=== PATIENT | male | born 1950 | race Caucasian/White ===

== ENCOUNTER 2018-05-29 19:22 | Emergency (ER) | payer MEDICARE ==
--- OUTSIDE RECORDS SUMMARY | 2018-05-29 19:24 | XMS REPORT | Clinical Summary ---
:1950 Author Organization [facility] Address [address] [place] [address] Phone Care Team Providers Name Role Phone Unavailable Primary Care Provider Unavailable Allergies Active Allergy Reactions Severity Noted Date Comments Atorvastatin Other (See Comments) High 03/31/2017 Elevated LFTs Current Medications Prescription Sig. Disp. Refills Start Date End Date Status aspirin 81 MG EC Take 81 mg by Active tablet mouth daily. METOPROLOL Take by mouth. Active SUCCINATE ORAL atorvastatin Take by mouth. Active calcium (ATORVASTATIN ORAL) amlodipine Take by mouth. Active besylate (AMLODIPINE ORAL) multivitamin per Take 1 tablet by Active tablet mouth daily. docusate sodium Take 1 capsule 10 capsule 0 05/20/2018 Active (COLACE) 100 MG (100 mg total) 8 capsule by mouth 2 (two) times daily for 10 days. traMADol (ULTRAM) Take 1 tablet 30 tablet 0 05/20/2018 Active 50 mg tablet (50 mg total) by 8 mouth every 6 (six) hours as needed for Pain for up to 10 days. Max Daily Amount: 200 mg oxybutynin Take 1 tablet (5 21 tablet 0 05/20/2018 Active (DITROPAN) 5 MG mg total) by 9 tablet mouth 3 (three) times daily as needed. ciprofloxacin HCl Start taking day 8 tablet 0 05/20/2018 Active (CIPRO) 500 MG before your tablet follow up appointment and continue after until complete. Take one tablet every 12 hours.. furosemide (LASIX) Take 1 tablet 20 tablet 0 04/01/2017 20 MG tablet (20 mg total) by 8 mouth daily. acetaminophen-code Take 1 tablet by Discontinued ine (TYLENOL #3) mouth every 4 8 300-30 mg per (four) hours as tablet needed for Pain. ciprofloxacin HCl Take 1 tablet 8 tablet 0 05/20/2018 Discontinued (CIPRO) 500 MG (500 mg total) 8 tablet by mouth 2 (two) times daily for 4 days. 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 ([facility]) NSTEMI (non-ST elevated myocardial infarction) ([facility]) 03/21/2017 Encounters Date Type Specialty Care Team Description 05/18/2018 - Hospital Encounter General Internal Dylan Stubbs MD 05/20/2018 Medicine 05/18/2018 Procedure Pass 05/18/2018 Surgery Dylan Stubbs MD ROBOTIC LAPAROSCOPY,PROSTATE CTOMY W/ PELVIC LYMPH NODE DISSECTION 05/17/2018 Anesthesia Event Kristel William MD 04/12/2018 Hospital Encounter Pre-Admission Dylan Stubbs MD Coronary artery Testing disease involving [place] coronary artery of [place] heart with unstable angina pectoris (HCC) 04/12/2018 Orders Only General Internal Medicine 04/07/2018 Orders Only Urology Dylan Stubbs MD 03/31/2018 Orders Only Urology Dylan Stubbs MD after 05/28/2017 Social History Tobacco Use Types Packs/Day Years Used Date Never Smoker Smokeless Tobacco: Never Used Alcohol Use Drinks/Week oz/Week Comments No Sex Assigned at Date Recorded Not on file Last Filed Vital Signs Vital Sign Reading Time Taken Blood Pressure 168/82 05/20/2018 7:18 AM CDT Pulse 68 05/20/2018 7:18 AM CDT Temperature 35.8 C (96.5 F) 05/20/2018 7:18 AM CDT Respiratory Rate 17 05/20/2018 7:18 AM CDT Oxygen Saturation 92% 05/20/2018 7:18 AM CDT Inhaled Oxygen Concentration - - Weight 83.4 kg (183 lb 12.8 oz) 05/18/2018 6:48 AM CDT Height 172.7 cm (5' 8") 05/18/2018 6:48 AM CDT Body Mass Index 27.95 05/18/2018 6:48 AM CDT Plan of Treatment Health Maintenance Due Date Last Done Comments INFLUENZA VACCINE 05/08/2018 Implants Implanted Type Area Control Systems Engineer Device Expiration Model / Identifier Date Serial / Lot Ivon Hemshld Dbl Alessandro 0.3x3.0in [id number] - [id number] Graft/P Right: GETINGE 12/05/2020 [id number] / Implanted: Qty: 1 on 03/28/2017 by Balwinder Amanda MD [facility] Arterial IND: MAQUET:CV [id number] / [id number] Procedures Procedure Name Priority Date/Time Associated Diagnosis Comments PROCEDURE W/ DAVINCI 05/18/2018 8:00 AM CDT Prostate cancer (HCC) Case Notes 4 HRS PER LIAN Special Needs (DAVINCI - XI NOT REQUESTED) ROBOTIC LAPAROSCOPY,PROSTATECTOMY W/ 05/18/2018 8:00 AM CDT Prostate cancer PELVIC LYMPH NODE DISSECTION (HCC) Case Notes 4 HRS PER LIAN Special Needs (DAVINCI - XI NOT REQUESTED) after 05/28/2017 Results RHYTHM STRIP - SCAN (05/23/2018 10:40 AM)Creatinine, body fluid (05/20/2018 8: 11 AM) Component Value Ref Range Creat, Fluid 0.91 mg/dL Specimen Performing Laboratory Body Fluid - MAK Drain [address] [address] Narrative Reference Range:No Normals Assay performance has not been validated for this type of specimen. Hemoglobin and hematocrit - in AM (05/20/2018 5:52 AM)Only the most recent of3 resultswithin the time period is included. Component Value Ref Range Hemoglobin 14.4 13.7 - 17.5 GM/DL Hematocrit 44.1 40.1 - 51.0 % Specimen Performing Laboratory Blood [address] [address] Basic Metabolic Panel - In AM (05/20/2018 5:52 AM)Only the most recent of3 resultswithin the time period is included. Component Value Ref Range Sodium 131 (L) 136 - 145 meq/L Potassium 3.9 3.5 - 5.1 meq/L Chloride 103 98 - 107 meq/L CO2 22 22 - 29 meq/L BUN 20 7 - 21 mg/dL Creatinine 1.06 0.57 - 1.25 mg/dL Glucose 95 70 - 105 mg/dL Calcium 8.3 (L) 8.4 - 10.2 mg/dL EGFR 70Comment: ESTIMATED GFR IS NOT ACCURATE mL/min/1.73 sq m CREATININE CLEARANCE IN PREDICTING GLOMERULAR FILTRATION RATE. ESTIMATED GFR IS NOT APPLICABLE FOR DIALYSIS PATIENTS. Specimen Performing Laboratory Blood [facility] [address] [address] TRANSFUSION SERVICE REPORT - SCAN (05/19/2018 5:41 PM)Only the most recent of2 resultswithin the time period is included.Tissue Exam (05/18/2018 9:51 AM) Component Value Ref Range Case Report Surgical Pathology Report Case: [id number] Authorizing Provider:Dylan Stubbs MDCollected: 05/18/2018 0951 Ordering Location: [facility] Received: 05/18/2018 1002 SERVICES Pathologist: Osvaldo Montelongo MD Specimens: A) - Lymph Node, Right External Iliac Lymph Node - Gross Exam , Frozen If Indicated B) - Lymph Node, Right Obturator Lymph Node - Gross Exam, Frozen If Indicated C) - Soft Tissue, Other, right hypogastric lymph node- gross exam and frozen if indicated D) - Vas Deferens, Left E) - Soft Tissue, Other, left external iliac lymph node for gross exam, frozen if indicated F) - Soft Tissue, Other, left obturator for gross exam, frozen if indicated G) - Lymph Node, right obturator lymph node H) - Lymph Node, Carmen-Prostatic Lymph Node I) - Prostate, Prostate and seminal vesicles DIAGNOSIS A. LYMPH NODES, RIGHT EXTERNAL ILIAC, DISSECTION: - FOUR BENIGN LYMPH NODES (0/4) B. LYMPH NODES, RIGHT OBTURATOR, DISSECTION: - TWO BENIGN LYMPH NODES (0/2) C. LYMPH NODES, RIGHT HYPOGASTRIC, DISSECTION: - SIX BENIGN LYMPH NODES (0/6) D. VAS DEFERENS, LEFT, RESECTION: - NO PATHOLOGIC DIAGNOSIS E. LYMPH NODE, LEFT EXTERNAL ILIAC, EXCISION: - ONE BENIGN LYMPH NODE (0/1) F. LYMPH NODES, LEFT OBTURATOR, DISSECTION: - TWO BENIGN LYMPH NODES (0/2) G. SOFT TISSUE, "RIGHT OBTURATOR LYMPH NODE", EXCISION: - BENIGN FIBROADIPOSE TISSUE, NO LYMPH NODES PRESENT H. SOFT TISSUE, "CARMEN-PROSTATIC LYMPH NODE", EXCISION: - BENIGN FIBROADIPOSE TISSUE, NO LYMPH NODES PRESENT I. PROSTATE, ROBOTIC-ASSISTED LAPAROSCOPIC RADICAL PROSTATECTOMY: - ADENOCARCINOMA, BENJAMIN 3+4=7, CONFINED TO THE PROSTATE, SURGICAL MARGINS NEGATIVE SEMINAL VESICLES, ROBOTIC-ASSISTED LAPAROSCOPIC RADICAL PROSTATECTOMY: - NO PATHOLOGIC DIAGNOSIS Signing Pathologist Direct Phone Line: [phone] COMMENT Sections show tumor in both peripheral zones and both transition zones. All tumors are confined to the prostate but the tumor in the leftt peripheral shows invasion into but not the capsule. SYNOPTIC REPORT PROSTATE GLAND: Radical Prostatectomy(Prostate Res - All Specimens) SPECIMEN Procedure:Radical prostatectomy Prostate Size: Prostate Weight (g):34.2 g Prostate Greatest Dimension in Centimeters (cm):3.6 Centimeters (cm) Additional Dimension in Centimeters (cm):3.5 Centimeters (cm ) Additional Dimension in Centimeters (cm):2.6 Centimeters (cm ) TUMOR Histologic Type:Acinar adenocarcinoma Histologic Grade: [place] Pattern: Primary Benjamin Pattern:Pattern 3 Secondary [place] Pattern:Pattern 4 Tertiary Benjamin Pattern:Not applicable Total [place] Score:7 Grade Group:2 Intraductal Carcinoma (IDC):Not identified Tumor Extent: Tumor Quantitation:Estimated percentage of prostate involved by tumor: 20 % Extraprostatic Extension (EPE):Not identified Urinary Bladder Neck Invasion:Not identified Seminal Vesicle Invasion:Not identified Accessory Findings: Treatment Effect:No known presurgical therapy Lymphovascular Invasion:Not Identified Perineural Invasion:Present MARGINS Margins:Uninvolved by invasive carcinoma :Benign prostate glands present at surgical margin LYMPH NODES Number of Lymph Nodes Involved:0 Number of Lymph Nodes Examined:15 PATHOLOGIC STAGE CLASSIFICATION (pTNM, AJCC 8th Edition) TNM Descriptors:Not applicable Primary Tumor (pT):pT2 Regional Lymph Nodes (pN):pN0 Distant Metastasis (pM):Not applicable - pM cannot be determined from the submitted specimen(s) ADDITIONAL FINDINGS Additional Pathologic Findings:Nodular prostatic hyperplasia CPT Code(s) A. 54563, 04823 B. 74045, 56606 C. 37321, 11055 D. 35458 E. 22512, 84736 F. 35198, 00794 G. 59069 H. 18341 I. 27818 CLINICAL HISTORY Procedure cancer SPECIMEN SOURCE A. Right external iliac lymph node. B. Right obturator lymph node. C. Right hypogastric lymphnode. D. Left vas deferens. E. Left external iliac lymph node. F. Left obturator. G. Right obturator lymph node. H. Periprostatic lymph node. I. Prostate and seminal vesicle. GROSS DESCRIPTION A. The specimen is received fresh labeled "lymph node" is a 5 x 2.5 x 0.5 cm desouza-pink soft tissue. The specimen consists with four lymph nodes measuring 1 x 1 x 0.5 cm each. The specimen is submitted in cassettes as follows: A1: Lymph node, bisected, submitted for frozen and touch prep. A2: Two lymph nodes, one green and one red, bisected. A3: Lymph node, bisected. A4: Remainder of the specimen. B. The specimen is received fresh labeled "lymph node" is a 7 x 1 x 0.5 cm desouza-pink soft tissue consists with two lymph nodes measuring 1.5 cm and 0.5 cm. The specimen is submitted as follows: B1: 1.5 cm lymph node, bisected and submitted entirely for frozen and touch prep. B2: 0.3 cm lymph node, bisected and submitted entirely. C. The specimen is received fresh labeled "soft tissue" is a 6 x 2 x 0.5 cm desouza-pink soft tissue consistent with four lymph nodes measuring from 1.5 cm in greatest dimension to 0.8 cm. The specimen is submitted as follows: C1FS and C3: Two bisected lymph nodes (one half of each lymph node frozen in C1FS) C2FS and C4: Two bisected lymph nodes (one half of each lymph node frozen in C2FS) C5: Remainder of the specimen. WM/ew D: Labeled "left vas deferens" consists of a segment of off-white tubular shaped soft tissue measuring 1.7 cm in length x 0.3 cm in diameter. No suspicious areas are seen grossly. The specimen is sectioned and submitted entirely in D1. CG/ew E. The specimen is received fresh labeled "soft tissue" consists of two pieces of soft tissue measuring 1 x 1 x 0.5 cm and 2 x 1 x 0.5 cm. The soft tissue is consistent with one lymph node measuring 2 x 0.5 x 0.3 cm. The specimen is submitted as follows: The lymph node is bisected and half of it is submitted for frozen in E1 and submitted for permanent in E2. E3: Remainder of the specimen. F. The specimen is received fresh labeled "soft tissue" is a 4 x 3 x 0.5 cm desouza-pink soft tissue. The specimen is consists with one lymph node measuring 2 x 1 x 0.5 cm. The specimen is submitted as foll ows, the lymph node is bisected and submitted as follows: F1 for frozen section and F2 for permanent, F3 is the remainder of the specimen. WM/ew G. Labeled "right obturator lymph node" consists of adipose tissue measuring 1.5 x 1 x 0.5 cm. Grossly no lymph node tissue is palpated or seen. The adipose tissue is entirely submitted in G1. H. Labeled "periprostatic lymph node" consists of adipose tissue measuring 4 x 2.5 x 1 cm in aggregate yielding no grossly apparent lymph node tissue. The adipose tissue is entirely submitted in H1 through H4. CG/ew I. Received in formalin labeled with the patient's name (George Trujillo ) is a prostate with bilateral seminal vesicles and vas deferentia. The prostate weighs 34.2 gm and measures 3.5 cm apex to base, 3.6 cm transversely and 2.6 cm anterior to posterior. The right and left seminal vesicles measure 2.7 x 1.2 x 0.5 cm and 2.5 x 1.5 x 0.5 cm respectively. The right and left vasa deferentia measure 4.0 cm and 4.0 cm in length respectively and 0.5 cm in diameter. The capsular surface of the prostate is purple-desouza to red, dusky, and focally ragged. Ink code: Right-black, left-blue. The prostate is serially sectioned from apex to base in entirety. The total number of slices including seminal vesicles and vas deferentia are 10. The sections of the prostate reveal pink-desouza to peralta-white, homogeneous, focally nodular prostatic parenchyma throughout. No discrete masses are identified. The sectioning of the seminal vesicles reveals a pink-desouza unremarkable cut surface. Section code: Apical margins are submitted in cassette I1, bladder neck margins are submitted in cassette I2. The prostate slices are submitted in cassette I3 through I8. The right and left seminal vesicles at the base of the prostate are submitted in cassette I9, seminal vesicle tips along with vas deferentia are submitted in cassette I10. SDH/ew MICROSCOPIC DESCRIPTION A-I. Performed. Specimen Performing Laboratory Tissue - Lymph Node; Tissue - Soft Tissue, [facility] Other; Tissue - Vas Deferens, Left; Tissue [address] [place] [address] - [place] [address] Type and screen, automated (05/18/2018 7:29 AM)Only the most recent of2 resultswithin the time period is included. Component Value Ref Range ABO/RH AUTOMATED (BEAKER) O POSITIVE Ab Scrn NEGATIVE Specimen Performing Laboratory Blood [place] [id number] Urine culture (04/12/2018 1:54 PM) Component Value Ref Range Result <10,000 col/mL skin clare Specimen Performing Laboratory Urine - Urine, Clean Catch [place] [id number] CBC with platelet count + automated diff (04/12/2018 1:53 PM) Component Value Ref Range WBC 5.3 3.5 - 10.5 K/L RBC 5.14 4.63 - 6.08 M/L Hemoglobin 15.8 13.7 - 17.5 GM/DL Hematocrit 48.2 40.1 - 51.0 % MCV 93.8 (H) 79.0 - 92.2 fL MCH 30.7 25.7 - 32.2 pg MCHC 32.8 32.3 - 36.5 GM/DL RDW 12.3 11.6 - 14.4 % Platelets 223 150 - 450 K/CU MM MPV 10.3 9.4 - 12.4 fL nRBC 0 0 - 0 /100 WBC % Neutros 55 % % Lymphs 24 % % Monos 11 % % Eos 9 % % Baso 1 % # Neutros 2.87 1.78 - 5.38 K/L # Lymphs 1.28 (L) 1.32 - 3.57 K/L # Monos 0.56 0.30 - 0.82 K/L # Eos 0.48 0.04 - 0.54 K/L # Baso 0.07 0.01 - 0.08 K/L Immature Granulocytes-Relative 0 0 - 1 % Specimen Performing Laboratory Blood [address] [address] aPTT (04/12/2018 1:53 PM) Component Value Ref Range PTT 33.7 22.5 - 36.0 seconds Specimen Performing Laboratory Blood [address] [address] Prothrombin time/INR (04/12/2018 1:53 PM) Component Value Ref Range Protime 14.5 11.7 - 14.7 seconds INR 1.1 <=5.9 Specimen Performing Laboratory Blood [address] [address] Narrative RECOMMENDED COUMADIN/WARFARIN INR THERAPY RANGES STANDARD DOSE: 2.0 - 3.0 Includes: PROPHYLAXIS for venous thrombosis, systemic embolization; TREATMENT for venous thrombosis and/or pulmonary embolus. HIGH RISK: Target INR is 2.5-3.5 for patients with mechanical heart valves. CBC with platelet count + automated diff (04/12/2018 1:53 PM) Specimen Performing Laboratory Blood Narrative The following orders were created for panel order CBC with platelet count + automated diff. Procedure Abnormality Status --------- ------ CBC with platelet count ...[[id number]]AbnormalFinal result Please view results for these tests on the individual orders. Comprehensive metabolic panel (04/12/2018 1:53 PM) Component Value Ref Range Protein, Total 8.1Comment: Specimen slightly hemolyzed 6.0 - 8.3 gm/dL Albumin 4.2Comment: Specimen slightly hemolyzed 3.5 - 5.0 g/dL Alkaline Phosphatase 112 40 - 150 U/L Total Bilirubin 0.4Comment: Specimen slightly hemolyzed 0.2 - 1.2 mg/dL Sodium 138 136 - 145 meq/L Potassium 4.6Comment: Specimen slightly hemolyzed 3.5 - 5.1 meq/L Chloride 105 98 - 107 meq/L CO2 27 22 - 29 meq/L BUN 24 (H) 7 - 21 mg/dL Creatinine 1.32 (H)Comment: Specimen slightly hemolyzed 0.57 - 1.25 mg/dL Glucose 71 70 - 105 mg/dL Calcium 9.7 8.4 - 10.2 mg/dL AST 18Comment: Specimen slightly hemolyzed 5 - 34 U/L ALT 18Comment: Specimen slightly hemolyzed 6 - 55 U/L EGFR 54Comment: ESTIMATED GFR IS NOT ACCURATE mL/min/1.73 sq m CREATININE CLEARANCE IN PREDICTING GLOMERULAR FILTRATION RATE. ESTIMATED GFR IS NOT APPLICABLE FOR DIALYSIS PATIENTS. Specimen Performing Laboratory Blood [facility] [address] [address] ECG 12 lead (04/12/2018 1:48 PM) Specimen Performing Laboratory GE MUSE Narrative Ventricular Rate 54 BPM Atrial Rate 54 BPM P-R Interval 174 ms QRS Duration 94 ms Q-T Interval 446 ms QTC Calculation(Bazett) 422 ms P [place] 50 degrees R [place] 2 degrees T [place] 24 degrees Sinus bradycardia Otherwise normal ECG When compared with ECG of 29-MAR-2017 22:54, Vent. rate has decreased BY38 BPM Confirmed by MD Pepper Roberto ([id number]) on 04/13/2018 10:28:45 AM Procedure Note Interface, External Ris In - 04/13/2018 10:28 AM CDT Ventricular Rate 54 BPM Atrial Rate 54 BPM P-R Interval 174 ms QRS Duration 94 ms Q-T Interval 446 ms QTC Calculation(Bazett) 422 ms P [place] 50 degrees R [place] 2 degrees T [place] 24 degrees Sinus bradycardia Otherwise normal ECG When compared with ECG of 29-MAR-2017 22:54, Vent. rate has decreased BY 38 BPM Confirmed by MD Pepper Roberto ([id number]) on 04/13/2018 10:28:45 AM after 05/28/2017
--- OUTSIDE RECORDS SUMMARY | 2018-05-29 19:26 | XMS REPORT ---
:1950 Author Organization [facility] Address [address] [place] [address] Dr. Huang [address] [place] [id number] Care Team Providers Name Role Phone DYLAN STUBBS Unavailable Unavailable MAXIM BRAND Unavailable Unavailable ARNOLDO CANO Unavailable Unavailable Problems This patient has no known problems. Allergies, Adverse Reactions, Alerts This patient has no known allergies or adverse reactions. Medications This patient has no known medications. Results Test Description Test Time Test Comments Text Results Atomic Results Result Comments TISSUE EXAM 2018-05-24 11:25:00 Surgical Pathology Report Case: [id number] Authorizing Provider: Dylan Stubbs MD Collected: 05/18/2018 0951 Ordering Location: [facility] PERIOPERATIVE Received: 05/18/2018 1002 SERVICES Pathologist: Osvaldo Montelongo MD Specimens: A) - Lymph Node, Right External Iliac Lymph Node - Gross Exam, Frozen If Indicated B) - Lymph Node, [...] I) - Prostate, Prostate and seminal vesicles A. LYMPH NODES, RIGHT EXTERNAL ILIAC, DISSECTION: - FOUR BENIGN LYMPH NODES (0/4)B. LYMPH NODES, RIGHT OBTURATOR, DISSECTION: - TWO BENIGN LYMPH NODES (0/2)C. LYMPH NODES, RIGHT HYPOGASTRIC, DISSECTION: - SIX BENIGN LYMPH NODES (0/6)D. VAS DEFERENS, LEFT, RESECTION: - NO PATHOLOGIC DIAGNOSISE. LYMPH NODE, LEFT EXTERNAL ILIAC, EXCISION: - ONE BENIGN LYMPH NODE (0/1)F. LYMPH NODES, LEFT OBTURATOR, DISSECTION: - TWO BENIGN LYMPH NODES (0/2)G. SOFT TISSUE, "RIGHT OBTURATOR LYMPH NODE", EXCISION: - BENIGN FIBROADIPOSE TISSUE, NO LYMPH NODES PRESENTH. SOFT TISSUE, "CARMEN-PROSTATIC LYMPH NODE", EXCISION: - BENIGN FIBROADIPOSE TISSUE, NO LYMPH NODES PRESENTI. PROSTATE, ROBOTIC-ASSISTED LAPAROSCOPIC RADICAL PROSTATECTOMY: - ADENOCARCINOMA, LEONARD 3+4=7, CONFINED TO THE PROSTATE, SURGICAL MARGINS NEGATIVE SEMINAL VESICLES, ROBOTIC-ASSISTED LAPAROSCOPIC RADICAL PROSTATECTOMY: - NO PATHOLOGIC DIAGNOSIS Signing Pathologist Direct Phone Line: [phone] signed by Osvaldo Montelongo MD on 05/24/2018 at 11:25 AMSections show tumor in both peripheral zones and both transition zones. All tumors are confined to the prostate but the tumor in the leftt peripheral shows invasion into but not the capsule. PROSTATE GLAND: Radical Prostatectomy (Prostate Res - All Specimens)SPECIMEN Procedure: Radical prostatectomy Prostate Size: Prostate Weight (g): 34.2 g Prostate Greatest Dimension in Centimeters (cm): 3.6 Centimeters (cm) Additional Dimension in Centimeters (cm): 3.5 Centimeters (cm) Additional Dimension in Centimeters (cm): 2.6 Centimeters (cm)TUMOR Histologic Type: Acinar adenocarcinoma Histologic Grade: Leonard Pattern: Primary [place] Pattern: Pattern 3 Secondary [place] Pattern: Pattern 4 Tertiary Leonard Pattern: Not applicable Total [place] Score: 7 Grade Group: 2 Intraductal Carcinoma (IDC): Not identified Tumor Extent: Tumor Quantitation: Estimated percentage of prostate involved by tumor: 20 % Extraprostatic Extension (EPE): Not identified Urinary Bladder Neck Invasion: Not identified Seminal Vesicle Invasion: Not identified Accessory Findings: Treatment Effect: No known presurgical therapy Lymphovascular Invasion: Not Identified Perineural Invasion: Present MARGINS Margins: Uninvolved by invasive carcinoma : Benign prostate glands present at surgical margin LYMPH NODES Number of Lymph Nodes Involved: 0 Number of Lymph Nodes Examined: 15 PATHOLOGIC STAGE CLASSIFICATION (pTNM, AJCC 8th Edition) TNM Descriptors: Not applicable Primary Tumor (pT): pT2 Regional Lymph Nodes (pN): pN0 Distant Metastasis (pM): Not applicable - pM cannot be determined from the submitted specimen(s) ADDITIONAL FINDINGS Additional Pathologic Findings: Nodular prostatic hyperplasia A. 24944, 49085Y. 54259, 52712V. 41264, 41259A. 92404K. 05336, 66241M. 28805, 96161B. 15625R. 89279B. 14803Gpthmlgyd cancerA. Right external iliac lymph node. B. Right obturator lymph node. C. Right hypogastric lymphnode. D. Left vas deferens. E. Left external iliac lymph node. F. Left obturator. G. Right obturator lymph node. H. Periprostatic lymph node. I. Prostate and seminal vesicle.A. The specimen is received fresh labeled "lymph node" is a 5 x 2.5 x 0.5 cm desouza-pink soft tissue. The specimen consists with four lymph nodes measuring 1 x 1 x 0.5 cm each. The specimen is submitted in cassettes as follows:A1: Lymph node, bisected, submitted for frozen and touch prep.A2: Two lymph nodes, one green and one red, bisected.A3: Lymph node, bisected.A4: Remainder of the specimen.B. The specimen is received fresh labeled "lymph node" is a 7 x 1 x 0.5 cm desouza-pink soft tissue consists with two lymph nodes measuring 1.5 cm and 0.5 cm. The specimen is submitted as follows:B1: 1.5 cm lymph node, bisected and submitted entirely for frozen and touch prep.B2: 0.3 cm lymph node, bisected and submitted entirely.C. The specimen is received fresh labeled "soft tissue" is a 6 x 2 x 0.5 cm desouza-pink soft tissue consistent with four lymph nodes measuring from 1.5 cm in greatest dimension to 0.8 cm. The specimen is submitted as follows:C1FS and C3: Two bisected lymph nodes (one half of each lymph node frozen in C1FS)C2FS and C4: Two bisected lymph nodes (one half of each lymph node frozen in C2FS)C5: Remainder of the specimen. WM/ew D: Labeled "left vas deferens" consists of a segment of off-white tubular shaped soft tissue measuring 1.7 cm in length x 0.3 cm in diameter. No suspicious areas are seen grossly. The specimen is sectioned and submitted entirely in D1. CG/ewE. The specimen is received fresh labeled "soft [...] permanent in E2. E3: Remainder of the specimen.F. The specimen is received fresh labeled "soft tissue" is a 4 x 3 x 0.5 cm desouza-pink soft tissue. The specimen is consists with one lymph node measuring 2 x 1 x 0.5 cm. The specimen is submitted as follows, the lymph node is bisected and submitted as follows: F1 for frozen section and F2 for permanent, F3 is the remainder of the specimen. WM/ewG. Labeled "right obturator lymph node" consists of adipose tissue measuring 1.5 x 1 x 0.5 cm. Grossly no lymph node tissue is palpated or seen. The adipose tissue is entirely submitted in G1.H. Labeled "periprostatic lymph node" consists of adipose tissue measuring 4 x 2.5 x 1 cm in aggregate yielding no grossly apparent lymph node tissue. The adipose tissue is entirely submitted in H1 through H4. CG/ewI. Received in formalin labeled with the patient's name (Rica Trujillo) is a prostate with bilateral seminal vesicles and vas deferentia.The prostate weighs 34.2 gm and measures 3.5 cm apex to base, 3.6 cm transversely and 2.6 cm anterior to posterior. The right and left seminal vesicles measure 2.7 x 1.2 x 0.5 cm and 2.5 x 1.5 x 0.5 cm respectively.The right and left vasa deferentia measure 4.0 cm and 4.0 cm in length respectively and 0.5 cm in diameter. The capsular surface of the prostate is purple-desouza to red, dusky, and focally ragged. Ink code: Right-black, left-blue. The prostate is serially sectioned from apex to base in entirety. The total number of slices including seminal vesicles and vas deferentia are 10.The sections of the prostate reveal pink-desouza to peralta-white, homogeneous, focally nodular prostatic parenchyma throughout. No discrete masses are identified.The sectioning of the seminal vesicles reveals a [...] vas deferentia are submitted in cassette I10. SDH/Loan-I. Performed. CREATININE, BODY FLUID 2018-05-20 09:11:00 Test Item Value Reference Range Comments CREATININE FLUID (BEAKER) (test wsey=960) 0.91 mg/dL Reference Range: No Normals Assay performance has not been validated for this type of specimen.BASIC METABOLIC [id number] 06:46:00 Test Item Value Reference Range Comments SODIUM (BEAKER) (test 131 meq/L 136-145 nfpw=024) POTASSIUM (BEAKER) (test 3.9 meq/L 3.5-5.1 wiew=385) CHLORIDE (BEAKER) (test 103 meq/L 98-107 zbrs=335) CO2 (BEAKER) (test 22 meq/L 22-29 ubhy=140) BLOOD UREA NITROGEN 20 mg/dL 7-21 (BEAKER) (test kxgp=238) CREATININE (BEAKER) (test 1.06 mg/dL 0.57-1.25 wwmk=610) GLUCOSE RANDOM (BEAKER) 95 mg/dL 70-105 (test qkwy=939) CALCIUM (BEAKER) (test 8.3 mg/dL 8.4-10.2 fcip=217) EGFR (BEAKER) (test 70 mL/min/1.73 sq m ESTIMATED GFR IS NOT efpr=4420) ACCURATE CREATININE CLEARANCE IN PREDICTING GLOMERULAR FILTRATION RATE. ESTIMATED GFR IS NOT APPLICABLE FOR DIALYSIS PATIENTS. HEMOGLOBIN AND [id number] 06:04:00 Test Item Value Reference Range Comments HEMOGLOBIN (BEAKER) (test zrbx=505) 14.4 GM/DL 13.7-17.5 HEMATOCRIT (BEAKER) (test isvz=711) 44.1 % 40.1-51.0 BASIC METABOLIC [id number] 04:47:00 Test Item Value Reference Range Comments SODIUM (BEAKER) (test 138 meq/L 136-145 oqtu=779) POTASSIUM (BEAKER) (test 4.4 meq/L 3.5-5.1 axqh=902) CHLORIDE (BEAKER) (test 108 meq/L 98-107 spfg=127) CO2 (BEAKER) (test 22 meq/L 22-29 vzps=633) BLOOD UREA NITROGEN 23 mg/dL 7-21 (BEAKER) (test gmzd=714) CREATININE (BEAKER) (test 1.29 mg/dL 0.57-1.25 tbtz=760) GLUCOSE RANDOM (BEAKER) 105 mg/dL 70-105 (test bayq=354) CALCIUM (BEAKER) (test 8.2 mg/dL 8.4-10.2 cpgw=968) EGFR (BEAKER) (test 56 mL/min/1.73 sq m ESTIMATED GFR IS NOT zrwc=6864) ACCURATE CREATININE CLEARANCE IN PREDICTING GLOMERULAR FILTRATION RATE. ESTIMATED GFR IS NOT APPLICABLE FOR DIALYSIS PATIENTS. HEMOGLOBIN AND [id number] 04:22:00 Test Item Value Reference Range Comments HEMOGLOBIN (BEAKER) (test nrle=728) 14.1 GM/DL 13.7-17.5 HEMATOCRIT (BEAKER) (test bbuq=886) 43.0 % 40.1-51.0 BASIC METABOLIC [id number] 14:47:00 Test Item Value Reference Range Comments SODIUM (BEAKER) (test 137 meq/L 136-145 qlrj=024) POTASSIUM (BEAKER) (test 5.1 meq/L 3.5-5.1 cmzd=475) CHLORIDE (BEAKER) (test 108 meq/L 98-107 duzn=215) CO2 (BEAKER) (test 24 meq/L 22-29 liem=054) BLOOD UREA NITROGEN 27 mg/dL 7-21 (BEAKER) (test hzhe=149) CREATININE (BEAKER) (test 1.44 mg/dL 0.57-1.25 nqmm=640) GLUCOSE RANDOM (BEAKER) 125 mg/dL 70-105 (test braa=573) CALCIUM (BEAKER) (test 7.9 mg/dL 8.4-10.2 qixn=048) EGFR (BEAKER) (test 49 mL/min/1.73 sq m ESTIMATED GFR IS NOT jban=3770) ACCURATE CREATININE CLEARANCE IN PREDICTING GLOMERULAR FILTRATION RATE. ESTIMATED GFR IS NOT APPLICABLE FOR DIALYSIS PATIENTS. HEMOGLOBIN AND [id number] 14:03:00 Test Item Value Reference Range Comments HEMOGLOBIN (BEAKER) (test adlk=281) 14.4 GM/DL 13.7-17.5 HEMATOCRIT (BEAKER) (test kijr=430) 43.8 % 40.1-51.0 URINE [id number] 15:18:00 Test Item Value Reference Range Comments CULTURE (BEAKER) (test xyul=8745) <10,000 col/mL skin clare COMPREHENSIVE METABOLIC [id number] 14:47:00 Test Item Value Reference Range Comments TOTAL PROTEIN (BEAKER) 8.1 gm/dL 6.0-8.3 Specimen slightly (test lycm=635) hemolyzed ALBUMIN (BEAKER) (test 4.2 g/dL 3.5-5.0 Specimen slightly rumn=8686) hemolyzed ALKALINE PHOSPHATASE 112 U/L 40-150 (BEAKER) (test fnrf=992) BILIRUBIN TOTAL (BEAKER) 0.4 mg/dL 0.2-1.2 Specimen slightly (test olcn=811) hemolyzed SODIUM (BEAKER) (test 138 meq/L 136-145 iadm=154) POTASSIUM (BEAKER) (test 4.6 meq/L 3.5-5.1 Specimen slightly rdkw=141) hemolyzed CHLORIDE (BEAKER) (test 105 meq/L 98-107 wjza=910) CO2 (BEAKER) (test 27 meq/L 22-29 oppc=447) BLOOD UREA NITROGEN 24 mg/dL 7-21 (BEAKER) (test bbzt=576) CREATININE (BEAKER) (test 1.32 mg/dL 0.57-1.25 Specimen slightly kifo=416) hemolyzed GLUCOSE RANDOM (BEAKER) 71 mg/dL 70-105 (test dxhk=557) CALCIUM (BEAKER) (test 9.7 mg/dL 8.4-10.2 ghut=400) AST (SGOT) (BEAKER) (test 18 U/L 5-34 Specimen slightly efgs=538) hemolyzed ALT (SGPT) (BEAKER) (test 18 U/L 6-55 Specimen slightly sxvk=102) hemolyzed EGFR (BEAKER) (test 54 mL/min/1.73 sq m ESTIMATED GFR IS NOT bxsk=2196) ACCURATE CREATININE CLEARANCE IN PREDICTING GLOMERULAR FILTRATION RATE. ESTIMATED GFR IS NOT APPLICABLE FOR DIALYSIS PATIENTS. CBC W/PLT COUNT & AUTO [id number] 14:28:00 Test Item Value Reference Range Comments WHITE BLOOD CELL COUNT (BEAKER) (test mudm=024) 5.3 K/ L 3.5-10.5 RED BLOOD CELL COUNT (BEAKER) (test xgwj=398) 5.14 M/ L 4.63-6.08 HEMOGLOBIN (BEAKER) (test ckcz=308) 15.8 GM/DL 13.7-17.5 HEMATOCRIT (BEAKER) (test zlsx=122) 48.2 % 40.1-51.0 MEAN CORPUSCULAR VOLUME (BEAKER) (test yous=623) 93.8 fL 79.0-92.2 MEAN CORPUSCULAR HEMOGLOBIN (BEAKER) (test 30.7 pg 25.7-32.2 pvht=157) MEAN CORPUSCULAR HEMOGLOBIN CONC (BEAKER) (test 32.8 GM/DL 32.3-36.5 ybck=780) RED CELL DISTRIBUTION WIDTH (BEAKER) (test 12.3 % 11.6-14.4 kbte=356) PLATELET COUNT (BEAKER) (test lkdb=195) 223 K/CU MM 150-450 MEAN PLATELET VOLUME (BEAKER) (test zdjq=722) 10.3 fL 9.4-12.4 NUCLEATED RED BLOOD CELLS (BEAKER) (test 0 /100 WBC 0-0 jojg=876) NEUTROPHILS RELATIVE PERCENT (BEAKER) (test 55 % diid=657) LYMPHOCYTES RELATIVE PERCENT (BEAKER) (test 24 % ikjf=531) MONOCYTES RELATIVE PERCENT (BEAKER) (test 11 % dmcm=520) EOSINOPHILS RELATIVE PERCENT (BEAKER) (test 9 % tqkf=787) BASOPHILS RELATIVE PERCENT (BEAKER) (test 1 % xmaj=238) NEUTROPHILS ABSOLUTE COUNT (BEAKER) (test 2.87 K/ L 1.78-5.38 isjh=609) LYMPHOCYTES ABSOLUTE COUNT (BEAKER) (test 1.28 K/ L 1.32-3.57 qhye=706) MONOCYTES ABSOLUTE COUNT (BEAKER) (test 0.56 K/ L 0.30-0.82 whly=865) EOSINOPHILS ABSOLUTE COUNT (BEAKER) (test 0.48 K/ L 0.04-0.54 klqc=911) BASOPHILS ABSOLUTE COUNT (BEAKER) (test 0.07 K/ L 0.01-0.08 iyan=790) IMMATURE GRANULOCYTES-RELATIVE PERCENT (BEAKER) 0 % 0-1 (test drvj=1200) PROTHROMBIN [id number] 14:23:00 Test Item Value Reference Range Comments PROTIME (BEAKER) (test jxzb=318) 14.5 seconds 11.7-14.7 INR (BEAKER) (test tjnb=649) 1.1 <=5.9 RECOMMENDED COUMADIN/WARFARIN INR THERAPY RANGESSTANDARD DOSE: 2.0 - 3.0 Includes: PROPHYLAXIS forvenous thrombosis, systemic embolization; TREATMENT for venous thrombosis and/or pulmonary embolus.HIGH RISK: Target INR is 2.5-3.5 for patients with mechanical heart valves.[id number] 14:23:00 Test Item Value Reference Range Comments PARTIAL THROMBOPLASTIN TIME (BEAKER) (test 33.7 seconds 22.5-36.0 kafa=630) [id number] 14:13:00 Test Item Value Reference Range Comments MAGNESIUM (BEAKER) (test kskh=929) 2.1 mg/dL 1.6-2.6 BASIC METABOLIC [id number] 14:13:00 Test Item Value Reference Range Comments SODIUM (BEAKER) (test 138 meq/L 136-145 dnjr=260) POTASSIUM (BEAKER) (test 5.3 meq/L 3.5-5.1 rryt=624) CHLORIDE (BEAKER) (test 103 meq/L 98-107 gzvw=917) CO2 (BEAKER) (test 26 meq/L 22-29 oahh=455) BLOOD UREA NITROGEN 31 mg/dL 7-21 (BEAKER) (test ulmb=596) CREATININE (BEAKER) (test 1.48 mg/dL 0.57-1.25 qfha=965) GLUCOSE RANDOM (BEAKER) 88 mg/dL 70-105 (test xlzi=101) CALCIUM (BEAKER) (test 10.3 mg/dL 8.4-10.2 hpzm=605) EGFR (BEAKER) (test 48 mL/min/1.73 sq m ESTIMATED GFR IS NOT fojl=4191) ACCURATE CREATININE CLEARANCE IN PREDICTING GLOMERULAR FILTRATION RATE. ESTIMATED GFR IS NOT APPLICABLE FOR DIALYSIS PATIENTS. B-TYPE NATRIURETIC FACTOR (BNP)2017-04-15 13:56:00 Test Item Value Reference Range Comments B-TYPE NATRIURETIC PEPTIDE (BEAKER) (test 430 pg/mL 0-100 wdcg=435) TISSUE [id number] 10:36:00Surgical Pathology Report Case: [id number] Authorizing Provider: Balwinder Amanda MD Collected: 03/28/2017 1639 Ordering Location: [facility] Received: 03/29/2017 0937 PERIOPERATIVE SERVICES Pathologist: Harrison Mosqueda MD Specimen: Plaque, RIGHT CAROTID PLAQUE ARTERY, RIGHT CAROTID, ATHERECTOMY :CALCIFIC ATHEROSCLEROTIC PLAQUE Signing Pathologist Direct Phone Line: [phone] carotid plaqueThe specimen is received in saline labeled with the patient's information labeled "right carotid plaque" and consists of two tubular-shaped segment of calcified tissues ranging only from 2 to 3 cm in radial diameter, from 0.5 to 0.8 cm. Sr. Director sections submitted A1 for decalcification. CG/pl PerformedCOMPREHENSIVE METABOLIC [id number] 05:36:00 Test Item Value Reference Range Comments TOTAL PROTEIN (BEAKER) 7.5 gm/dL 6.0-8.3 (test bsom=696) ALBUMIN (BEAKER) (test 3.8 g/dL 3.5-5.0 uwzf=2406) ALKALINE PHOSPHATASE 306 U/L 40-150 (BEAKER) (test szqe=580) BILIRUBIN TOTAL (BEAKER) 0.9 mg/dL 0.2-1.2 (test jmwq=767) SODIUM (BEAKER) (test 135 meq/L 136-145 ypvi=414) POTASSIUM (BEAKER) (test 4.2 meq/L 3.5-5.1 sazo=029) CHLORIDE (BEAKER) (test 96 meq/L 98-107 uxay=854) CO2 (BEAKER) (test 28 meq/L 22-29 cpzg=402) BLOOD UREA NITROGEN 30 mg/dL 7-21 (BEAKER) (test pnfo=840) CREATININE (BEAKER) (test 1.25 mg/dL 0.57-1.25 uxtf=023) GLUCOSE RANDOM (BEAKER) 93 mg/dL 70-105 (test yxdp=896) CALCIUM (BEAKER) (test 9.3 mg/dL 8.4-10.2 cdqf=204) AST (SGOT) (BEAKER) (test 70 U/L 5-34 uzwq=409) ALT (SGPT) (BEAKER) (test 75 U/L 6-55 gnqz=686) EGFR (BEAKER) (test 58 mL/min/1.73 sq m ESTIMATED GFR IS NOT xxbm=0034) ACCURATE CREATININE CLEARANCE IN PREDICTING GLOMERULAR FILTRATION RATE. ESTIMATED GFR IS NOT APPLICABLE FOR DIALYSIS PATIENTS. HEPATIC FUNCTION [id number] 05:35:00 Test Item Value Reference Range Comments TOTAL PROTEIN (BEAKER) (test ylbs=175) 7.4 gm/dL 6.0-8.3 ALBUMIN (BEAKER) (test lwze=0071) 3.8 g/dL 3.5-5.0 BILIRUBIN TOTAL (BEAKER) (test qgnu=758) 1.0 mg/dL 0.2-1.2 BILIRUBIN DIRECT (BEAKER) (test pfvq=074) 0.6 mg/dL 0.1-0.5 ALKALINE PHOSPHATASE (BEAKER) (test tiws=260) 307 U/L 40-150 AST (SGOT) (BEAKER) (test dhep=111) 72 U/L 5-34 ALT (SGPT) (BEAKER) (test jpki=319) 74 U/L 6-55 CBC W/PLT COUNT & AUTO [id number] 05:21:00 Test Item Value Reference Range Comments WHITE BLOOD CELL COUNT (BEAKER) (test pyvv=226) 6.2 K/ L 3.5-10.5 RED BLOOD CELL COUNT (BEAKER) (test gvvs=976) 3.16 M/ L 4.63-6.08 HEMOGLOBIN (BEAKER) (test rrsn=799) 9.9 GM/DL 13.7-17.5 HEMATOCRIT (BEAKER) (test iuqv=243) 29.8 % 40.1-51.0 MEAN CORPUSCULAR VOLUME (BEAKER) (test qerk=350) 94.3 fL 79.0-92.2 MEAN CORPUSCULAR HEMOGLOBIN (BEAKER) (test 31.3 pg 25.7-32.2 lbhb=592) MEAN CORPUSCULAR HEMOGLOBIN CONC (BEAKER) (test 33.2 GM/DL 32.3-36.5 cfcz=941) RED CELL DISTRIBUTION WIDTH (BEAKER) (test 12.2 % 11.6-14.4 blju=920) PLATELET COUNT (BEAKER) (test sbao=186) 292 K/CU MM 150-450 MEAN PLATELET VOLUME (BEAKER) (test rgio=697) 9.9 fL 9.4-12.4 NUCLEATED RED BLOOD CELLS (BEAKER) (test 0 /100 WBC 0-0 kwwl=690) NEUTROPHILS RELATIVE PERCENT (BEAKER) (test 75 % njlm=700) LYMPHOCYTES RELATIVE PERCENT (BEAKER) (test 12 % qcyc=223) MONOCYTES RELATIVE PERCENT (BEAKER) (test 9 % moaf=493) EOSINOPHILS RELATIVE PERCENT (BEAKER) (test 3 % npji=607) BASOPHILS RELATIVE PERCENT (BEAKER) (test 0 % gytg=269) NEUTROPHILS ABSOLUTE COUNT (BEAKER) (test 4.69 K/ L 1.78-5.38 dtjk=420) LYMPHOCYTES ABSOLUTE COUNT (BEAKER) (test 0.73 K/ L 1.32-3.57 ppyv=490) MONOCYTES ABSOLUTE COUNT (BEAKER) (test 0.55 K/ L 0.30-0.82 ihrw=847) EOSINOPHILS ABSOLUTE COUNT (BEAKER) (test 0.21 K/ L 0.04-0.54 demm=507) BASOPHILS ABSOLUTE COUNT (BEAKER) (test 0.02 K/ L 0.01-0.08 cxho=508) IMMATURE GRANULOCYTES-RELATIVE PERCENT (BEAKER) 1 % 0-1 (test sjdw=8999) [id number] 07:28:00 Test Item Value Reference Range Comments MAGNESIUM (BEAKER) (test djbe=034) 1.9 mg/dL 1.6-2.6 BASIC METABOLIC [id number] 07:28:00 Test Item Value Reference Range Comments SODIUM (BEAKER) (test 135 meq/L 136-145 nhva=393) POTASSIUM (BEAKER) (test 4.3 meq/L 3.5-5.1 wxgs=673) CHLORIDE (BEAKER) (test 98 meq/L 98-107 hijw=381) CO2 (BEAKER) (test 28 meq/L 22-29 nzzf=130) BLOOD UREA NITROGEN 24 mg/dL 7-21 (BEAKER) (test vqox=075) CREATININE (BEAKER) (test 1.31 mg/dL 0.57-1.25 iiqq=676) GLUCOSE RANDOM (BEAKER) 92 mg/dL 70-105 (test desa=413) CALCIUM (BEAKER) (test 8.6 mg/dL 8.4-10.2 cyzs=551) EGFR (BEAKER) (test 55 mL/min/1.73 sq m ESTIMATED GFR IS NOT tghd=3019) ACCURATE CREATININE CLEARANCE IN PREDICTING GLOMERULAR FILTRATION RATE. ESTIMATED GFR IS NOT APPLICABLE FOR DIALYSIS PATIENTS. HEPATIC FUNCTION [id number] 07:28:00 Test Item Value Reference Range Comments TOTAL PROTEIN (BEAKER) (test sdik=246) 6.3 gm/dL 6.0-8.3 ALBUMIN (BEAKER) (test cuxq=8036) 3.3 g/dL 3.5-5.0 BILIRUBIN TOTAL (BEAKER) (test kzan=624) 0.7 mg/dL 0.2-1.2 BILIRUBIN DIRECT (BEAKER) (test sern=432) 0.4 mg/dL 0.1-0.5 ALKALINE PHOSPHATASE (BEAKER) (test tode=682) 176 U/L 40-150 AST (SGOT) (BEAKER) (test dfjn=639) 45 U/L 5-34 ALT (SGPT) (BEAKER) (test xceu=059) 41 U/L 6-55 CBC (HEMOGRAM ONLY)2017-04-01 06:53:00 Test Item Value Reference Range Comments WHITE BLOOD CELL COUNT (BEAKER) (test dead=345) 6.6 K/ L 3.5-10.5 RED BLOOD CELL COUNT (BEAKER) (test fuzl=153) 2.87 M/ L 4.63-6.08 HEMOGLOBIN (BEAKER) (test crsm=334) 9.0 GM/DL 13.7-17.5 HEMATOCRIT (BEAKER) (test edfv=813) 27.2 % 40.1-51.0 MEAN CORPUSCULAR VOLUME (BEAKER) (test ndac=604) 94.8 fL 79.0-92.2 MEAN CORPUSCULAR HEMOGLOBIN (BEAKER) (test 31.4 pg 25.7-32.2 bots=651) MEAN CORPUSCULAR HEMOGLOBIN CONC (BEAKER) (test 33.1 GM/DL 32.3-36.5 ljmt=037) RED CELL DISTRIBUTION WIDTH (BEAKER) (test 12.5 % 11.6-14.4 rjeg=947) PLATELET COUNT (BEAKER) (test gsfl=942) 226 K/CU MM 150-450 MEAN PLATELET VOLUME (BEAKER) (test ombr=831) 10.7 fL 9.4-12.4 NUCLEATED RED BLOOD CELLS (BEAKER) (test 0 /100 WBC 0-0 olrc=754) [id number] 05:09:00 Test Item Value Reference Range Comments MAGNESIUM (BEAKER) (test vvhe=730) 1.8 mg/dL 1.6-2.6 BASIC METABOLIC [id number] 05:09:00 Test Item Value Reference Range Comments SODIUM (BEAKER) (test 135 meq/L 136-145 uujv=018) POTASSIUM (BEAKER) (test 4.4 meq/L 3.5-5.1 cqbi=169) CHLORIDE (BEAKER) (test 99 meq/L 98-107 vtlt=127) CO2 (BEAKER) (test 28 meq/L 22-29 oryk=386) BLOOD UREA NITROGEN 18 mg/dL 7-21 (BEAKER) (test rgzz=080) CREATININE (BEAKER) (test 1.18 mg/dL 0.57-1.25 axkz=845) GLUCOSE RANDOM (BEAKER) 97 mg/dL 70-105 (test azrp=913) CALCIUM (BEAKER) (test 9.4 mg/dL 8.4-10.2 rgxp=434) EGFR (BEAKER) (test 62 mL/min/1.73 sq m ESTIMATED GFR IS NOT osqf=8405) ACCURATE CREATININE CLEARANCE IN PREDICTING GLOMERULAR FILTRATION RATE. ESTIMATED GFR IS NOT APPLICABLE FOR DIALYSIS PATIENTS. HEPATIC FUNCTION [id number] 05:09:00 Test Item Value Reference Range Comments TOTAL PROTEIN (BEAKER) (test uipn=814) 7.1 gm/dL 6.0-8.3 ALBUMIN (BEAKER) (test kbsa=6059) 3.7 g/dL 3.5-5.0 BILIRUBIN TOTAL (BEAKER) (test xuka=874) 0.8 mg/dL 0.2-1.2 BILIRUBIN DIRECT (BEAKER) (test bvzc=018) 0.4 mg/dL 0.1-0.5 ALKALINE PHOSPHATASE (BEAKER) (test uwau=362) 61 U/L 40-150 AST (SGOT) (BEAKER) (test dvot=963) 24 U/L 5-34 ALT (SGPT) (BEAKER) (test ibap=651) 32 U/L 6-55 CBC (HEMOGRAM ONLY)2017-03-31 04:44:00 Test Item Value Reference Range Comments WHITE BLOOD CELL COUNT (BEAKER) (test mbdd=269) 9.8 K/ L 3.5-10.5 RED BLOOD CELL COUNT (BEAKER) (test qmxh=225) 3.15 M/ L 4.63-6.08 HEMOGLOBIN (BEAKER) (test nrvh=279) 9.8 GM/DL 13.7-17.5 HEMATOCRIT (BEAKER) (test tbxf=183) 29.6 % 40.1-51.0 MEAN CORPUSCULAR VOLUME (BEAKER) (test ujns=237) 94.0 fL 79.0-92.2 MEAN CORPUSCULAR HEMOGLOBIN (BEAKER) (test 31.1 pg 25.7-32.2 taas=090) MEAN CORPUSCULAR HEMOGLOBIN CONC (BEAKER) (test 33.1 GM/DL 32.3-36.5 hnvy=383) RED CELL DISTRIBUTION WIDTH (BEAKER) (test 12.5 % 11.6-14.4 jgsm=718) PLATELET COUNT (BEAKER) (test ehkp=313) 222 K/CU MM 150-450 MEAN PLATELET VOLUME (BEAKER) (test govt=917) 10.7 fL 9.4-12.4 NUCLEATED RED BLOOD CELLS (BEAKER) (test 0 /100 WBC 0-0 tobv=214) POCT-GLUCOSE [id number] 21:33:00 Test Item Value Reference Range Comments POC-GLUCOSE METER (BEAKER) 96 mg/dL 70-110 TESTED AT [address] (test fciz=7195) [place] [id number] POCT-GLUCOSE [id number] 17:09:00 Test Item Value Reference Range Comments POC-GLUCOSE METER (BEAKER) 122 mg/dL 70-110 TESTED AT [address] (test krqy=8631) [place] [id number] BASIC METABOLIC [id number] 13:23:00 Test Item Value Reference Range Comments SODIUM (BEAKER) (test 133 meq/L 136-145 qncd=774) POTASSIUM (BEAKER) (test 4.4 meq/L 3.5-5.1 hiwh=913) CHLORIDE (BEAKER) (test 102 meq/L 98-107 sbim=541) CO2 (BEAKER) (test 24 meq/L 22-29 eubp=666) BLOOD UREA NITROGEN 18 mg/dL 7-21 (BEAKER) (test pifg=830) CREATININE (BEAKER) (test 0.98 mg/dL 0.57-1.25 qwph=352) GLUCOSE RANDOM (BEAKER) 133 mg/dL 70-105 (test adyu=134) CALCIUM (BEAKER) (test 8.6 mg/dL 8.4-10.2 hrbo=647) EGFR (BEAKER) (test 77 mL/min/1.73 sq m ESTIMATED GFR IS NOT riyv=4006) ACCURATE CREATININE CLEARANCE IN PREDICTING GLOMERULAR FILTRATION RATE. ESTIMATED GFR IS NOT APPLICABLE FOR DIALYSIS PATIENTS. POCT-GLUCOSE [id number] 13:02:00 Test Item Value Reference Range Comments POC-GLUCOSE METER (BEAKER) 123 mg/dL 70-110 TESTED AT [address] (test otqv=8532) [facility] [address] POCT-GLUCOSE [id number] 08:01:00 Test Item Value Reference Range Comments POC-GLUCOSE METER (BEAKER) 109 mg/dL 70-110 TESTED AT [address] (test qryg=3289) [facility] [address] [id number] 07:16:00 Test Item Value Reference Range Comments MAGNESIUM (BEAKER) (test axbq=410) 1.8 mg/dL 1.6-2.6 HEPATIC FUNCTION [id number] 07:16:00 Test Item Value Reference Range Comments TOTAL PROTEIN (BEAKER) (test qjve=646) 6.3 gm/dL 6.0-8.3 ALBUMIN (BEAKER) (test copg=2308) 3.6 g/dL 3.5-5.0 BILIRUBIN TOTAL (BEAKER) (test ifin=364) 0.6 mg/dL 0.2-1.2 BILIRUBIN DIRECT (BEAKER) (test qima=726) 0.3 mg/dL 0.1-0.5 ALKALINE PHOSPHATASE (BEAKER) (test sopz=240) 49 U/L 40-150 AST (SGOT) (BEAKER) (test adyv=032) 35 U/L 5-34 ALT (SGPT) (BEAKER) (test wqif=874) 37 U/L 6-55 CBC (HEMOGRAM ONLY)2017-03-30 06:31:00 Test Item Value Reference Range Comments WHITE BLOOD CELL COUNT (BEAKER) (test eyhx=920) 9.8 K/ L 3.5-10.5 RED BLOOD CELL COUNT (BEAKER) (test pqxd=200) 2.87 M/ L 4.63-6.08 HEMOGLOBIN (BEAKER) (test svzh=343) 9.0 GM/DL 13.7-17.5 HEMATOCRIT (BEAKER) (test wvsb=347) 26.9 % 40.1-51.0 MEAN CORPUSCULAR VOLUME (BEAKER) (test gbya=205) 93.7 fL 79.0-92.2 MEAN CORPUSCULAR HEMOGLOBIN (BEAKER) (test 31.4 pg 25.7-32.2 jjkc=806) MEAN CORPUSCULAR HEMOGLOBIN CONC (BEAKER) (test 33.5 GM/DL 32.3-36.5 wwpk=982) RED CELL DISTRIBUTION WIDTH (BEAKER) (test 13.1 % 11.6-14.4 yxbv=935) PLATELET COUNT (BEAKER) (test yukc=561) 203 K/CU MM 150-450 MEAN PLATELET VOLUME (BEAKER) (test kqxj=220) 11.4 fL 9.4-12.4 NUCLEATED RED BLOOD CELLS (BEAKER) (test 0 /100 WBC 0-0 bpwj=286) POCT-GLUCOSE [id number] 05:33:00 Test Item Value Reference Range Comments POC-GLUCOSE METER (BEAKER) 132 mg/dL 70-110 TESTED AT [address] (test zzfy=5925) [facility] [address] HEMOGLOBIN AND [id number] 10:52:00 Test Item Value Reference Range Comments HEMOGLOBIN (BEAKER) (test elna=380) 9.3 GM/DL 13.7-17.5 HEMATOCRIT (BEAKER) (test vjsn=101) 27.4 % 40.1-51.0 POCT-GLUCOSE [id number] 07:51:00 Test Item Value Reference Range Comments POC-GLUCOSE METER (BEAKER) 147 mg/dL 70-110 TESTED AT [address] (test xnpg=4558) [facility] [address] POCT-GLUCOSE [id number] 07:22:00 Test Item Value Reference Range Comments POC-GLUCOSE METER (BEAKER) 168 mg/dL 70-110 TESTED AT [facility] [address] (test liif=6388) [place] [address] CBC W/PLT COUNT & AUTO [id number] 05:26:00 Test Item Value Reference Range Comments WHITE BLOOD CELL COUNT (BEAKER) (test fine=796) 9.8 K/ L 3.5-10.5 RED BLOOD CELL COUNT (BEAKER) (test emkg=977) 2.44 M/ L 4.63-6.08 HEMOGLOBIN (BEAKER) (test ypwv=663) 7.8 GM/DL 13.7-17.5 HEMATOCRIT (BEAKER) (test lnoa=604) 23.0 % 40.1-51.0 MEAN CORPUSCULAR VOLUME (BEAKER) (test retf=379) 94.3 fL 79.0-92.2 MEAN CORPUSCULAR HEMOGLOBIN (BEAKER) (test 32.0 pg 25.7-32.2 eyso=754) MEAN CORPUSCULAR HEMOGLOBIN CONC (BEAKER) (test 33.9 GM/DL 32.3-36.5 vtww=813) RED CELL DISTRIBUTION WIDTH (BEAKER) (test 12.4 % 11.6-14.4 tqcf=241) PLATELET COUNT (BEAKER) (test vvqh=857) 208 K/CU MM 150-450 MEAN PLATELET VOLUME (BEAKER) (test dioy=439) 10.3 fL 9.4-12.4 NUCLEATED RED BLOOD CELLS (BEAKER) (test 0 /100 WBC 0-0 bmno=319) NEUTROPHILS RELATIVE PERCENT (BEAKER) (test 92 % ukls=768) LYMPHOCYTES RELATIVE PERCENT (BEAKER) (test 3 % ffvc=190) MONOCYTES RELATIVE PERCENT (BEAKER) (test 5 % nbzs=794) EOSINOPHILS RELATIVE PERCENT (BEAKER) (test 0 % pazv=330) BASOPHILS RELATIVE PERCENT (BEAKER) (test 0 % xrpc=028) NEUTROPHILS ABSOLUTE COUNT (BEAKER) (test 9.05 K/ L 1.78-5.38 hhbd=808) LYMPHOCYTES ABSOLUTE COUNT (BEAKER) (test 0.25 K/ L 1.32-3.57 afaw=955) MONOCYTES ABSOLUTE COUNT (BEAKER) (test 0.46 K/ L 0.30-0.82 xubr=991) EOSINOPHILS ABSOLUTE COUNT (BEAKER) (test 0.01 K/ L 0.04-0.54 kmqg=142) BASOPHILS ABSOLUTE COUNT (BEAKER) (test 0.01 K/ L 0.01-0.08 knhd=939) IMMATURE GRANULOCYTES-RELATIVE PERCENT (BEAKER) 1 % 0-1 (test snmg=5014) OXYGEN SATURATION, [id number] 04:58:00 Test Item Value Reference Range Comments O2 SATURATION (MEASURED) (BEAKER) (test wsmr=9188) 75.9 % [id number] 04:55:00 Test Item Value Reference Range Comments MAGNESIUM (BEAKER) (test meur=787) 1.9 mg/dL 1.6-2.6 BASIC METABOLIC [id number] 04:55:00 Test Item Value Reference Range Comments SODIUM (BEAKER) (test 140 meq/L 136-145 fiav=312) POTASSIUM (BEAKER) (test 4.6 meq/L 3.5-5.1 mpds=892) CHLORIDE (BEAKER) (test 112 meq/L 98-107 wqkt=951) CO2 (BEAKER) (test 20 meq/L 22-29 rjfv=147) BLOOD UREA NITROGEN 21 mg/dL 7-21 (BEAKER) (test rvca=231) CREATININE (BEAKER) (test 1.38 mg/dL 0.57-1.25 qttb=941) GLUCOSE RANDOM (BEAKER) 136 mg/dL 70-105 (test cjrq=108) CALCIUM (BEAKER) (test 8.4 mg/dL 8.4-10.2 welp=587) EGFR (BEAKER) (test 52 mL/min/1.73 sq m ESTIMATED GFR IS NOT cahy=8722) ACCURATE CREATININE CLEARANCE IN PREDICTING GLOMERULAR FILTRATION RATE. ESTIMATED GFR IS NOT APPLICABLE FOR DIALYSIS PATIENTS. LACTIC ACID, ARTERIAL, WHOLE [id number] 04:52:00 Test Item Value Reference Range Comments LACTATE BLOOD ARTERIAL (2) (BEAKER) (test 1.2 mmol/L 0.5-2.2 qlpd=8932) Effective 12/10/2015: Units/Reference Range ChangeNew: 0.5-2.2 mmol/L Previous: 5 -20 mg/dLBLOOD GAS, [id number] 02:31:00 Test Item Value Reference Range Comments PH ARTERIAL (BEAKER) (test flqv=066) 7.38 7.35-7.45 PCO2 ARTERIAL (BEAKER) (test rlvj=088) 41 mmHg 35-45 PO2 ARTERIAL (BEAKER) (test pgsm=517) 134 mmHg 80-90 O2 SATURATION ARTERIAL (BEAKER) (test lutz=778) 98.5 % 96.0-97.0 HCO3 ARTERIAL (BEAKER) (test hbsh=286) 23 mmol/L 21-29 BASE EXCESS ARTERIAL (BEAKER) (test nrub=382) -1.7 mmol/L -2.0-3.0 PATIENT TEMPERATURE (BEAKER) (test wjwa=1084) 37.9 C FIO2 (BEAKER) (test hcpl=1084) 36.0 % Post extubation ABGBLOOD GAS, [id number] 01:21:00 Test Item Value Reference Range Comments PH ARTERIAL (BEAKER) (test obtd=755) 7.48 7.35-7.45 PCO2 ARTERIAL (BEAKER) (test rdtb=408) 28 mmHg 35-45 PO2 ARTERIAL (BEAKER) (test kvab=081) 155 mmHg 80-90 O2 SATURATION ARTERIAL (BEAKER) (test xtgp=252) 99.1 % 96.0-97.0 HCO3 ARTERIAL (BEAKER) (test nznv=354) 20 mmol/L 21-29 BASE EXCESS ARTERIAL (BEAKER) (test usyb=149) -2.2 mmol/L -2.0-3.0 PATIENT TEMPERATURE (BEAKER) (test wvvs=3006) 37.3 C FIO2 (BEAKER) (test farb=1021) 40.0 % BLOOD GAS, [id number] 21:32:00 Test Item Value Reference Range Comments PH ARTERIAL (BEAKER) (test qpix=605) 7.32 7.35-7.45 PCO2 ARTERIAL (BEAKER) (test dlrv=440) 43 mmHg 35-45 PO2 ARTERIAL (BEAKER) (test hwvc=992) 90 mmHg 80-90 O2 SATURATION ARTERIAL (BEAKER) (test egor=487) 96.5 % 96.0-97.0 HCO3 ARTERIAL (BEAKER) (test vgod=801) 22 mmol/L 21-29 BASE EXCESS ARTERIAL (BEAKER) (test vdnb=312) -4.4 mmol/L -2.0-3.0 PATIENT TEMPERATURE (BEAKER) (test pqxk=6971) 36.4 C FIO2 (BEAKER) (test ozhi=7554) 60.0 % [id number] 19:17:00 Test Item Value Reference Range Comments PHOSPHORUS (BEAKER) (test llrm=522) 3.3 mg/dL 2.3-4.7 [id number] 19:17:00 Test Item Value Reference Range Comments MAGNESIUM (BEAKER) (test zhbh=307) 1.9 mg/dL 1.6-2.6 BASIC METABOLIC [id number] 19:17:00 Test Item Value Reference Range Comments SODIUM (BEAKER) (test 139 meq/L 136-145 cdev=616) POTASSIUM (BEAKER) (test 4.8 meq/L 3.5-5.1 rtpu=989) CHLORIDE (BEAKER) (test 111 meq/L 98-107 ezmk=321) CO2 (BEAKER) (test 18 meq/L 22-29 bwxv=364) BLOOD UREA NITROGEN 23 mg/dL 7-21 (BEAKER) (test fevu=355) CREATININE (BEAKER) (test 1.12 mg/dL 0.57-1.25 fxkm=935) GLUCOSE RANDOM (BEAKER) 125 mg/dL 70-105 (test idvv=639) CALCIUM (BEAKER) (test 8.9 mg/dL 8.4-10.2 ruhi=761) EGFR (BEAKER) (test 66 mL/min/1.73 sq m ESTIMATED GFR IS NOT ypkh=1047) ACCURATE CREATININE CLEARANCE IN PREDICTING GLOMERULAR FILTRATION RATE. ESTIMATED GFR IS NOT APPLICABLE FOR DIALYSIS PATIENTS. LACTIC ACID, ARTERIAL, WHOLE [id number] 19:13:00 Test Item Value Reference Range Comments LACTATE BLOOD ARTERIAL (2) (BEAKER) (test 1.3 mmol/L 0.5-2.2 fxyb=0554) Effective 12/10/2015: Units/Reference Range ChangeNew: 0.5-2.2 mmol/L Previous: 5 -20 mg/dLCBC W/PLT COUNT & AUTO [id number] 18:59:00 Test Item Value Reference Range Comments WHITE BLOOD CELL COUNT (BEAKER) (test ouxe=260) 5.1 K/ L 3.5-10.5 RED BLOOD CELL COUNT (BEAKER) (test aqlh=379) 3.02 M/ L 4.63-6.08 HEMOGLOBIN (BEAKER) (test gxdy=736) 9.6 GM/DL 13.7-17.5 HEMATOCRIT (BEAKER) (test kfos=053) 27.8 % 40.1-51.0 MEAN CORPUSCULAR VOLUME (BEAKER) (test ngnx=251) 92.1 fL 79.0-92.2 MEAN CORPUSCULAR HEMOGLOBIN (BEAKER) (test 31.8 pg 25.7-32.2 qqpo=633) MEAN CORPUSCULAR HEMOGLOBIN CONC (BEAKER) (test 34.5 GM/DL 32.3-36.5 albl=269) RED CELL DISTRIBUTION WIDTH (BEAKER) (test 12.3 % 11.6-14.4 dngs=821) PLATELET COUNT (BEAKER) (test uuoo=019) 237 K/CU MM 150-450 MEAN PLATELET VOLUME (BEAKER) (test hona=053) 10.3 fL 9.4-12.4 NUCLEATED RED BLOOD CELLS (BEAKER) (test 0 /100 WBC 0-0 fltd=696) NEUTROPHILS RELATIVE PERCENT (BEAKER) (test 88 % yhyg=794) LYMPHOCYTES RELATIVE PERCENT (BEAKER) (test 11 % vaeh=150) MONOCYTES RELATIVE PERCENT (BEAKER) (test 1 % zfnt=950) EOSINOPHILS RELATIVE PERCENT (BEAKER) (test 0 % zfgr=527) BASOPHILS RELATIVE PERCENT (BEAKER) (test 0 % knoz=920) NEUTROPHILS ABSOLUTE COUNT (BEAKER) (test 4.49 K/ L 1.78-5.38 auod=260) LYMPHOCYTES ABSOLUTE COUNT (BEAKER) (test 0.56 K/ L 1.32-3.57 eojc=823) MONOCYTES ABSOLUTE COUNT (BEAKER) (test 0.03 K/ L 0.30-0.82 jext=730) EOSINOPHILS ABSOLUTE COUNT (BEAKER) (test 0.02 K/ L 0.04-0.54 ztep=202) BASOPHILS ABSOLUTE COUNT (BEAKER) (test 0.01 K/ L 0.01-0.08 kxke=658) IMMATURE GRANULOCYTES-RELATIVE PERCENT (BEAKER) 0 % 0-1 (test nqop=3285) OXYGEN SATURATION, [id number] 18:31:00 Test Item Value Reference Range Comments O2 SATURATION (MEASURED) (BEAKER) (test qgpy=9101) 66.2 % BLOOD GAS, [id number] 18:31:00 Test Item Value Reference Range Comments PH ARTERIAL (BEAKER) (test qkoq=643) 7.35 7.35-7.45 PCO2 ARTERIAL (BEAKER) (test dpyw=599) 37 mmHg 35-45 PO2 ARTERIAL (BEAKER) (test cjeq=104) 88 mmHg 80-90 O2 SATURATION ARTERIAL (BEAKER) (test paok=476) 96.8 % 96.0-97.0 HCO3 ARTERIAL (BEAKER) (test bwse=001) 20 mmol/L 21-29 BASE EXCESS ARTERIAL (BEAKER) (test ydtv=547) -5.1 mmol/L -2.0-3.0 PATIENT TEMPERATURE (BEAKER) (test ckcl=0516) 36.0 C FIO2 (BEAKER) (test necs=2892) 85.0 % GLUCOSE-STAT [id number] 18:31:00 Test Item Value Reference Range Comments GLUCOSE RANDOM (BEAKER) (test nbur=740) 116 mg/dL 70-110 HEMOGLOBIN-STAT [id number] 18:31:00 Test Item Value Reference Range Comments HEMOGLOBIN (BEAKER) (test jbhh=311) 10.2 g/dL 13.0-16.8 HGB/HCT (H&H) - STAT [id number] 18:31:00 Test Item Value Reference Range Comments HEMOGLOBIN (BEAKER) (test aker=647) 10.2 GM/DL 13.0-16.8 HEMATOCRIT (BEAKER) (test vtlq=038) 30.0 % 40.0-50.0 CALCIUM, [id number] 18:31:00 Test Item Value Reference Range Comments CALCIUM IONIZED (BEAKER) (test uicx=799) 1.20 mmol/L 1.12-1.27 PH, BLOOD (BEAKER) (test smvk=2420) 7.35 SODIUM NA-STAT [id number] 18:30:00 Test Item Value Reference Range Comments SODIUM (BEAKER) (test fusz=622) 135 meq/L 135-148 POTASSIUM-STAT [id number] 18:30:00 Test Item Value Reference Range Comments POTASSIUM (BEAKER) (test ruhy=666) 4.6 meq/L 3.6-5.5 THROMBOELASTOGRAPH (TEG)[id number] 17:55:00 Test Item Value Reference Range Comments TEG ACTIVATED CLOTTING TIME (BEAKER) (test 4.9 minutes 4.0-7.0 azls=8677) TEG FIBRINOGEN ACTIVITY (BEAKER) (test 72.6 degrees 61.0-73.0 wssn=7934) TEG PLT. AGGREGATION (BEAKER) (test gjey=6598) 66.1 MM 55.0-65.0 TGH ACTIVATED CLOTTING TIME (BEAKER) (test 5.1 minutes 4.0-7.0 vqxy=8103) TGH FIBRINOGEN ACTIVITY (BEAKER) (test 72.3 degrees 61.0-73.0 nxcq=2660) TGH PLT. AGGREGATION (BEAKER) (test wzuj=8068) 62.8 MM 55.0-65.0 [id number] 17:36:00 Test Item Value Reference Range Comments ACTIVATED CLOTTING TIME 103 sec TESTED AT [facility] [address] (BEAKER) (test nurr=901) [place] [id number] 17:36:00 Test Item Value Reference Range Comments ACTIVATED CLOTTING TIME 466 sec TESTED AT [place] [id number] (BEAKER) (test gktk=277) [place] [id number] 17:36:00 Test Item Value Reference Range Comments ACTIVATED CLOTTING TIME 461 sec TESTED AT [place] [id number] (BEAKER) (test qche=877) [place] [address] [id number] 17:36:00 Test Item Value Reference Range Comments ACTIVATED CLOTTING TIME 461 sec TESTED AT [place] [id number] (BEAKER) (test flks=592) [place] [id number] CALCIUM, [id number] 17:09:00 Test Item Value Reference Range Comments CALCIUM IONIZED (BEAKER) (test okbu=746) 1.19 mmol/L 1.12-1.27 PH, BLOOD (BEAKER) (test rzry=8086) 7.30 SODIUM NA-STAT [id number] 17:09:00 Test Item Value Reference Range Comments SODIUM (BEAKER) (test ydre=509) 135 meq/L 135-148 BLOOD GAS, [id number] 17:09:00 Test Item Value Reference Range Comments PH ARTERIAL (BEAKER) (test ftes=074) 7.32 7.35-7.45 PCO2 ARTERIAL (BEAKER) (test tlqz=734) 43 mmHg 35-45 PO2 ARTERIAL (BEAKER) (test cvnw=457) 92 mmHg 80-90 O2 SATURATION ARTERIAL (BEAKER) (test oxca=233) 96.9 % 96.0-97.0 HCO3 ARTERIAL (BEAKER) (test jslq=036) 22 mmol/L 21-29 BASE EXCESS ARTERIAL (BEAKER) (test vhzn=956) -4.7 mmol/L -2.0-3.0 PATIENT TEMPERATURE (BEAKER) (test xsku=2370) 35.7 C FIO2 (BEAKER) (test ewyd=4423) 100.0 % POTASSIUM-STAT [id number] 17:09:00 Test Item Value Reference Range Comments POTASSIUM (BEAKER) (test uifv=175) 5.6 meq/L 3.6-5.5 GLUCOSE-STAT [id number] 17:09:00 Test Item Value Reference Range Comments GLUCOSE RANDOM (BEAKER) (test cyug=412) 125 mg/dL 70-110 HGB/HCT (H&H) - STAT [id number] 17:09:00 Test Item Value Reference Range Comments HEMOGLOBIN (BEAKER) (test asrg=037) 10.2 g/dL 13.0-16.8 HEMATOCRIT (BEAKER) (test xbde=463) 30.0 % 40.0-50.0 PLATELET AGGREGATION: FUNCTION [id number] 17:04:00 Test Item Value Reference Range Comments WEAK ADP RESULT(BEAKER) (test 48 % 60-91 iekq=4365) PLATELET FUNCTION SCREEN 40-49% indicates moderate INTERP (BEAKER) (test platelet dysfunction hxqb=2823) [id number] Sandrine Hickey MD (electronic (BEAKER) (test athq=6122) signature) PLATELET COUNT AGG (BEAKER) 178 K/CU MM 150-450 (test mfiy=1622) [id number] 16:48:00 Test Item Value Reference Range Comments FIBRINOGEN LEVEL (BEAKER) (test yfyk=109) 269 mg/dl 225-434 [id number] 16:48:00 Test Item Value Reference Range Comments PARTIAL THROMBOPLASTIN TIME (BEAKER) (test 40.2 seconds 22.5-36.0 cmbg=332) PROTHROMBIN [id number] 16:47:00 Test Item Value Reference Range Comments PROTIME (BEAKER) (test xpke=934) 17.9 seconds 11.7-14.7 INR (BEAKER) (test bphf=389) 1.5 <=5.9 RECOMMENDED COUMADIN/WARFARIN INR THERAPY RANGESSTANDARD DOSE: 2.0 - 3.0 Includes: PROPHYLAXIS forvenous thrombosis, systemic embolization; TREATMENT for venous thrombosis and/or pulmonary embolus.HIGH RISK: Target INR is 2.5-3.5 for patients with mechanical heart valves.PLATELET [id number] 16:21:00 Test Item Value Reference Range Comments PLATELET COUNT (BEAKER) (test hoif=898) 169 K/CU MM 150-450 BLOOD GAS, [id number] 16:15:00 Test Item Value Reference Range Comments PH ARTERIAL (BEAKER) (test pbys=539) 7.36 7.35-7.45 PCO2 ARTERIAL (BEAKER) (test luvr=656) 37 mmHg 35-45 PO2 ARTERIAL (BEAKER) (test ibfv=707) 381 mmHg 80-90 O2 SATURATION ARTERIAL (BEAKER) (test cdhp=336) 99.8 % 96.0-97.0 HCO3 ARTERIAL (BEAKER) (test lrnd=382) 21 mmol/L 21-29 BASE EXCESS ARTERIAL (BEAKER) (test cngc=725) -4.6 mmol/L -2.0-3.0 PATIENT TEMPERATURE (BEAKER) (test vsiq=8361) 35.7 C FIO2 (BEAKER) (test roie=4551) 100.0 % SODIUM NA-STAT [id number] 16:15:00 Test Item Value Reference Range Comments SODIUM (BEAKER) (test hbwm=740) 132 meq/L 135-148 POTASSIUM-STAT [id number] 16:15:00 Test Item Value Reference Range Comments POTASSIUM (BEAKER) (test ftwl=438) 5.7 meq/L 3.6-5.5 GLUCOSE-STAT [id number] 16:15:00 Test Item Value Reference Range Comments GLUCOSE RANDOM (BEAKER) (test vgaa=178) 113 mg/dL 70-110 HGB/HCT (H&H) - STAT [id number] 16:15:00 Test Item Value Reference Range Comments HEMOGLOBIN (BEAKER) (test xpwd=018) 9.3 g/dL 13.0-16.8 HEMATOCRIT (BEAKER) (test bvzi=777) 27.0 % 40.0-50.0 CALCIUM, [id number] 16:14:00 Test Item Value Reference Range Comments CALCIUM IONIZED (BEAKER) (test uouj=641) 1.01 mmol/L 1.12-1.27 PH, BLOOD (BEAKER) (test yqus=2086) 7.34 HGB/HCT (H&H) - STAT [id number] 15:45:00 Test Item Value Reference Range Comments HEMOGLOBIN (BEAKER) (test tpig=510) 8.8 g/dL 13.0-16.8 HEMATOCRIT (BEAKER) (test qqmn=915) 26.0 % 40.0-50.0 BLOOD GAS, [id number] 15:44:00 Test Item Value Reference Range Comments PH ARTERIAL (BEAKER) (test dsal=147) 7.44 7.35-7.45 PCO2 ARTERIAL (BEAKER) (test ywuh=069) 33 mmHg 35-45 PO2 ARTERIAL (BEAKER) (test vmmi=262) 358 mmHg 80-90 O2 SATURATION ARTERIAL (BEAKER) (test tvfe=799) 99.8 % 96.0-97.0 HCO3 ARTERIAL (BEAKER) (test zhjv=269) 22 mmol/L 21-29 BASE EXCESS ARTERIAL (BEAKER) (test ywdn=501) -1.9 mmol/L -2.0-3.0 PATIENT TEMPERATURE (BEAKER) (test qrkn=7724) 35.0 C FIO2 (BEAKER) (test eezm=4499) 70.0 % SODIUM NA-STAT [id number] 15:44:00 Test Item Value Reference Range Comments SODIUM (BEAKER) (test rmbg=181) 127 meq/L 135-148 POTASSIUM-STAT [id number] 15:44:00 Test Item Value Reference Range Comments POTASSIUM (BEAKER) (test vnqu=689) 7.3 meq/L 3.6-5.5 Specimen NOT hemolyzed.GLUCOSE-STAT [id number] 15:42:00 Test Item Value Reference Range Comments GLUCOSE RANDOM (BEAKER) (test drly=322) 104 mg/dL 70-110 POTASSIUM-STAT [id number] 15:25:00 Test Item Value Reference Range Comments POTASSIUM (BEAKER) (test kqng=547) 6.3 meq/L 3.6-5.5 Specimen NOT hemolyzed.BLOOD GAS, [id number] 15:24:00 Test Item Value Reference Range Comments PH VENOUS (BEAKER) (test teic=203) 7.42 7.32-7.42 PCO2 VENOUS (BEAKER) (test aeet=688) 33 mmHg 41-51 PO2 VENOUS (BEAKER) (test hsef=911) 38 mmHg 25-40 O2 SATURATION VENOUS (BEAKER) (test ssnn=131) 91.4 % 40.0-70.0 HCO3 VENOUS (BEAKER) (test cxru=366) 23 mmol/L 21-29 BASE EXCESS VENOUS (BEAKER) (test gucx=294) -3.4 mmol/L -2.0-3.0 PATIENT TEMPERATURE (BEAKER) (test czgf=5453) 28.6 C FIO2 (BEAKER) (test adcx=3281) 70.0 % BLOOD GAS, [id number] 15:24:00 Test Item Value Reference Range Comments PH ARTERIAL (BEAKER) (test mgvf=521) 7.47 7.35-7.45 PCO2 ARTERIAL (BEAKER) (test ckct=853) 29 mmHg 35-45 PO2 ARTERIAL (BEAKER) (test kxmc=227) 412 mmHg 80-90 O2 SATURATION ARTERIAL (BEAKER) (test dnxa=280) 99.8 % 96.0-97.0 HCO3 ARTERIAL (BEAKER) (test qday=915) 22 mmol/L 21-29 BASE EXCESS ARTERIAL (BEAKER) (test mztj=478) -2.9 mmol/L -2.0-3.0 PATIENT TEMPERATURE (BEAKER) (test rnsg=0776) 28.6 C FIO2 (BEAKER) (test tmxh=0048) 70.0 % SODIUM NA-STAT [id number] 15:24:00 Test Item Value Reference Range Comments SODIUM (BEAKER) (test ugzb=673) 127 meq/L 135-148 HGB/HCT (H&H) - STAT [id number] 15:24:00 Test Item Value Reference Range Comments HEMOGLOBIN (BEAKER) (test eyii=993) 8.8 g/dL 13.0-16.8 HEMATOCRIT (BEAKER) (test znts=596) 26.0 % 40.0-50.0 GLUCOSE-STAT [id number] 15:21:00 Test Item Value Reference Range Comments GLUCOSE RANDOM (BEAKER) (test idgs=768) 90 mg/dL 70-110 PLATELET AGGREGATION: FUNCTION [id number] 14:44:00 Test Item Value Reference Range Comments WEAK ADP RESULT(BEAKER) (test 34 % 60-91 tvzj=2637) PLATELET FUNCTION SCREEN 0-39% indicates marked platelet INTERP (BEAKER) (test dysfunction eudg=1361) [id number] Zach Thrasher M.D. (electonic (BEAKER) (test qjhk=8575) signature) PLATELET COUNT AGG (BEAKER) 217 K/CU MM 150-450 (test lthq=2153) PLATELET AGGREGATION: FUNCTION [id number] 14:43:00 Test Item Value Reference Range Comments WEAK ADP RESULT(BEAKER) (test 14 % 60-91 cwoq=6796) PLATELET FUNCTION SCREEN 0-39% indicates marked platelet INTERP (BEAKER) (test dysfunction acaf=9071) [id number] Zach Thrasher M.D. (electonic (BEAKER) (test mtoy=2712) signature) PLATELET COUNT AGG (BEAKER) 207 K/CU MM 150-450 (test wafk=1605) CALCIUM, [id number] 14:02:00 Test Item Value Reference Range Comments CALCIUM IONIZED (BEAKER) (test rlbr=138) 1.16 mmol/L 1.12-1.27 PH, BLOOD (BEAKER) (test ufek=6884) 7.44 BLOOD GAS, [id number] 14:02:00 Test Item Value Reference Range Comments PH ARTERIAL (BEAKER) (test cdgh=691) 7.46 7.35-7.45 PCO2 ARTERIAL (BEAKER) (test crxg=617) 35 mmHg 35-45 PO2 ARTERIAL (BEAKER) (test nxfq=913) 372 mmHg 80-90 O2 SATURATION ARTERIAL (BEAKER) (test ozup=505) 99.8 % 96.0-97.0 HCO3 ARTERIAL (BEAKER) (test iuht=893) 24 mmol/L 21-29 BASE EXCESS ARTERIAL (BEAKER) (test nbbf=105) 0.3 mmol/L -2.0-3.0 PATIENT TEMPERATURE (BEAKER) (test bryg=5848) 35.8 C FIO2 (BEAKER) (test mypa=0844) 99.0 % GLUCOSE-STAT [id number] 14:01:00 Test Item Value Reference Range Comments GLUCOSE RANDOM (BEAKER) (test sour=447) 94 mg/dL 70-110 SODIUM NA-STAT [id number] 14:01:00 Test Item Value Reference Range Comments SODIUM (BEAKER) (test bdtv=402) 135 meq/L 135-148 POTASSIUM-STAT [id number] 14:01:00 Test Item Value Reference Range Comments POTASSIUM (BEAKER) (test jprd=729) 4.5 meq/L 3.6-5.5 HGB/HCT (H&H) - STAT [id number] 14:01:00 Test Item Value Reference Range Comments HEMOGLOBIN (BEAKER) (test ysgf=416) 15.0 g/dL 13.0-16.8 HEMATOCRIT (BEAKER) (test pfph=855) 44.0 % 40.0-50.0 HEPATIC FUNCTION [id number] 04:45:00 Test Item Value Reference Range Comments TOTAL PROTEIN (BEAKER) (test 7.5 gm/dL 6.0-8.3 Specimen slightly hemolyzed sxbs=891) ALBUMIN (BEAKER) (test 3.6 g/dL 3.5-5.0 Specimen slightly hemolyzed bblv=9870) BILIRUBIN TOTAL (BEAKER) (test < mg/dL 0.2-1.2 Specimen slightly hemolyzed tirp=485) BILIRUBIN DIRECT (BEAKER) (test 0.1 mg/dL 0.1-0.5 Specimen slightly hemolyzed rmbh=585) ALKALINE PHOSPHATASE (BEAKER) 101 U/L 40-150 (test snri=921) AST (SGOT) (BEAKER) (test 34 U/L 5-34 Specimen slightly hemolyzed tpfo=886) ALT (SGPT) (BEAKER) (test 81 U/L 6-55 Specimen slightly hemolyzed bmja=919) CREATINE KINASE (CK)2017-03-28 04:45:00 Test Item Value Reference Range Comments CREATINE KINASE TOTAL (BEAKER) (test dior=319) 42 U/L 29-200 [id number] 04:31:00 Test Item Value Reference Range Comments PARTIAL THROMBOPLASTIN TIME (BEAKER) (test 68.3 seconds 22.5-36.0 vgpe=721) [id number] 04:30:00 Test Item Value Reference Range Comments FIBRINOGEN LEVEL (BEAKER) (test deyb=066) 525 mg/dl 225-434 PROTHROMBIN [id number] 04:29:00 Test Item Value Reference Range Comments PROTIME (BEAKER) (test wwgn=033) 13.6 seconds 11.7-14.7 INR (BEAKER) (test osjj=290) 1.1 <=5.9 RECOMMENDED COUMADIN/WARFARIN INR THERAPY RANGESSTANDARD DOSE: 2.0 - 3.0 Includes: PROPHYLAXIS forvenous thrombosis, systemic embolization; TREATMENT for venous thrombosis and/or pulmonary embolus.HIGH RISK: Target INR is 2.5-3.5 for patients with mechanical heart valves.PLATELET [id number] 04:21:00 Test Item Value Reference Range Comments PLATELET COUNT (BEAKER) (test clke=824) 211 K/CU MM 150-450 [id number] 05:03:00 Test Item Value Reference Range Comments MAGNESIUM (BEAKER) (test 2.1 mg/dL 1.6-2.6 Specimen slightly hemolyzed hjuk=297) BASIC METABOLIC [id number] 05:03:00 Test Item Value Reference Range Comments SODIUM (BEAKER) (test 137 meq/L 136-145 muni=954) POTASSIUM (BEAKER) (test 5.3 meq/L 3.5-5.1 Specimen slightly dzic=683) hemolyzed CHLORIDE (BEAKER) (test 105 meq/L 98-107 czwl=875) CO2 (BEAKER) (test 23 meq/L 22-29 rvgh=811) BLOOD UREA NITROGEN 24 mg/dL 7-21 (BEAKER) (test lrlv=217) CREATININE (BEAKER) (test 1.24 mg/dL 0.57-1.25 Specimen slightly cfeo=247) hemolyzed GLUCOSE RANDOM (BEAKER) 91 mg/dL 70-105 (test mbpd=980) CALCIUM (BEAKER) (test 9.1 mg/dL 8.4-10.2 zirm=402) EGFR (BEAKER) (test 59 mL/min/1.73 sq m ESTIMATED GFR IS NOT xlih=9469) ACCURATE CREATININE CLEARANCE IN PREDICTING GLOMERULAR FILTRATION RATE. ESTIMATED GFR IS NOT APPLICABLE FOR DIALYSIS PATIENTS. HEPATIC FUNCTION [id number] 05:03:00 Test Item Value Reference Range Comments TOTAL PROTEIN (BEAKER) (test 7.6 gm/dL 6.0-8.3 Specimen slightly hemolyzed pttq=944) ALBUMIN (BEAKER) (test 3.6 g/dL 3.5-5.0 Specimen slightly hemolyzed fpft=1080) BILIRUBIN TOTAL (BEAKER) (test 0.4 mg/dL 0.2-1.2 Specimen slightly hemolyzed thjv=253) BILIRUBIN DIRECT (BEAKER) (test 0.2 mg/dL 0.1-0.5 Specimen slightly hemolyzed qbkh=975) ALKALINE PHOSPHATASE (BEAKER) 80 U/L 40-150 (test jpzo=733) AST (SGOT) (BEAKER) (test 47 U/L 5-34 Specimen slightly hemolyzed lhkn=662) ALT (SGPT) (BEAKER) (test 87 U/L 6-55 Specimen slightly hemolyzed glzy=960) CREATINE KINASE (CK)2017-03-27 05:03:00 Test Item Value Reference Range Comments CREATINE KINASE TOTAL (BEAKER) (test vzre=005) 51 U/L 29-200 [id number] 05:00:00 Test Item Value Reference Range Comments PARTIAL THROMBOPLASTIN TIME (BEAKER) (test 81.9 seconds 22.5-36.0 yjdk=670) CALCIUM, [id number] 06:12:00 Test Item Value Reference Range Comments CALCIUM IONIZED (BEAKER) (test iarx=107) 1.21 mmol/L 1.12-1.27 PH, BLOOD (BEAKER) (test jkzq=6792) 7.34 [id number] 05:57:00 Test Item Value Reference Range Comments PHOSPHORUS (BEAKER) (test jtar=378) 3.0 mg/dL 2.3-4.7 [id number] 05:57:00 Test Item Value Reference Range Comments MAGNESIUM (BEAKER) (test hywx=597) 2.2 mg/dL 1.6-2.6 BASIC METABOLIC [id number] 05:57:00 Test Item Value Reference Range Comments SODIUM (BEAKER) (test 137 meq/L 136-145 olfs=913) POTASSIUM (BEAKER) (test 4.6 meq/L 3.5-5.1 sfgz=210) CHLORIDE (BEAKER) (test 106 meq/L 98-107 tsjq=068) CO2 (BEAKER) (test 22 meq/L 22-29 kpyj=890) BLOOD UREA NITROGEN 24 mg/dL 7-21 (BEAKER) (test qeit=473) CREATININE (BEAKER) (test 1.26 mg/dL 0.57-1.25 gpyq=937) GLUCOSE RANDOM (BEAKER) 88 mg/dL 70-105 (test meqo=171) CALCIUM (BEAKER) (test 8.7 mg/dL 8.4-10.2 glfx=019) EGFR (BEAKER) (test 58 mL/min/1.73 sq m ESTIMATED GFR IS NOT yzro=2724) ACCURATE CREATININE CLEARANCE IN PREDICTING GLOMERULAR FILTRATION RATE. ESTIMATED GFR IS NOT APPLICABLE FOR DIALYSIS PATIENTS. HEPATIC FUNCTION [id number] 05:57:00 Test Item Value Reference Range Comments TOTAL PROTEIN (BEAKER) (test pugu=883) 7.4 gm/dL 6.0-8.3 ALBUMIN (BEAKER) (test dwtz=3638) 3.6 g/dL 3.5-5.0 BILIRUBIN TOTAL (BEAKER) (test tlgj=286) 0.4 mg/dL 0.2-1.2 BILIRUBIN DIRECT (BEAKER) (test hcah=964) 0.2 mg/dL 0.1-0.5 ALKALINE PHOSPHATASE (BEAKER) (test bfyz=547) 77 U/L 40-150 AST (SGOT) (BEAKER) (test gsxe=190) 40 U/L 5-34 ALT (SGPT) (BEAKER) (test mzgz=767) 86 U/L 6-55 CREATINE KINASE (CK)2017-03-26 05:57:00 Test Item Value Reference Range Comments CREATINE KINASE TOTAL (BEAKER) (test shix=655) 59 U/L 29-200 [id number] 04:51:00 Test Item Value Reference Range Comments PARTIAL THROMBOPLASTIN TIME (BEAKER) (test 76.6 seconds 22.5-36.0 yvpb=820) CBC W/PLT COUNT & AUTO [id number] 04:37:00 Test Item Value Reference Range Comments WHITE BLOOD CELL COUNT (BEAKER) (test lhev=815) 6.2 K/ L 3.5-10.5 RED BLOOD CELL COUNT (BEAKER) (test vfrp=921) 4.54 M/ L 4.63-6.08 HEMOGLOBIN (BEAKER) (test vgmk=113) 14.4 GM/DL 13.7-17.5 HEMATOCRIT (BEAKER) (test tomp=643) 42.6 % 40.1-51.0 MEAN CORPUSCULAR VOLUME (BEAKER) (test upxz=192) 93.8 fL 79.0-92.2 MEAN CORPUSCULAR HEMOGLOBIN (BEAKER) (test 31.7 pg 25.7-32.2 eeqp=675) MEAN CORPUSCULAR HEMOGLOBIN CONC (BEAKER) (test 33.8 GM/DL 32.3-36.5 ujfr=815) RED CELL DISTRIBUTION WIDTH (BEAKER) (test 12.2 % 11.6-14.4 dzky=457) PLATELET COUNT (BEAKER) (test eizq=114) 207 K/CU MM 150-450 MEAN PLATELET VOLUME (BEAKER) (test jlkl=816) 11.0 fL 9.4-12.4 NUCLEATED RED BLOOD CELLS (BEAKER) (test 0 /100 WBC 0-0 depp=058) NEUTROPHILS RELATIVE PERCENT (BEAKER) (test 60 % imzu=045) LYMPHOCYTES RELATIVE PERCENT (BEAKER) (test 23 % gjpi=553) MONOCYTES RELATIVE PERCENT (BEAKER) (test 10 % jydf=107) EOSINOPHILS RELATIVE PERCENT (BEAKER) (test 7 % umeu=215) BASOPHILS RELATIVE PERCENT (BEAKER) (test 1 % ixje=465) NEUTROPHILS ABSOLUTE COUNT (BEAKER) (test 3.68 K/ L 1.78-5.38 qxwe=635) LYMPHOCYTES ABSOLUTE COUNT (BEAKER) (test 1.41 K/ L 1.32-3.57 zcpr=320) MONOCYTES ABSOLUTE COUNT (BEAKER) (test 0.60 K/ L 0.30-0.82 fqee=909) EOSINOPHILS ABSOLUTE COUNT (BEAKER) (test 0.41 K/ L 0.04-0.54 nwgy=591) BASOPHILS ABSOLUTE COUNT (BEAKER) (test 0.04 K/ L 0.01-0.08 ykqr=265) IMMATURE GRANULOCYTES-RELATIVE PERCENT (BEAKER) 0 % 0-1 (test akgb=4040) BASIC METABOLIC [id number] 05:19:00 Test Item Value Reference Range Comments SODIUM (BEAKER) (test 138 meq/L 136-145 syfq=388) POTASSIUM (BEAKER) (test 3.9 meq/L 3.5-5.1 hvuy=784) CHLORIDE (BEAKER) (test 109 meq/L 98-107 vjag=201) CO2 (BEAKER) (test 23 meq/L 22-29 zckr=212) BLOOD UREA NITROGEN 28 mg/dL 7-21 (BEAKER) (test ofzu=051) CREATININE (BEAKER) (test 1.18 mg/dL 0.57-1.25 vmgc=565) GLUCOSE RANDOM (BEAKER) 84 mg/dL 70-105 (test lrva=208) CALCIUM (BEAKER) (test 7.8 mg/dL 8.4-10.2 eymz=324) EGFR (BEAKER) (test 62 mL/min/1.73 sq m ESTIMATED GFR IS NOT qclw=5868) ACCURATE CREATININE CLEARANCE IN PREDICTING GLOMERULAR FILTRATION RATE. ESTIMATED GFR IS NOT APPLICABLE FOR DIALYSIS PATIENTS. [id number] 05:17:00 Test Item Value Reference Range Comments PHOSPHORUS (BEAKER) (test cpnd=832) 2.6 mg/dL 2.3-4.7 [id number] 05:17:00 Test Item Value Reference Range Comments MAGNESIUM (BEAKER) (test rzro=727) 1.8 mg/dL 1.6-2.6 HEPATIC FUNCTION [id number] 05:17:00 Test Item Value Reference Range Comments TOTAL PROTEIN (BEAKER) (test oulz=968) 6.6 gm/dL 6.0-8.3 ALBUMIN (BEAKER) (test yvkx=7223) 3.2 g/dL 3.5-5.0 BILIRUBIN TOTAL (BEAKER) (test qrrf=329) < mg/dL 0.2-1.2 BILIRUBIN DIRECT (BEAKER) (test zscl=490) 0.1 mg/dL 0.1-0.5 ALKALINE PHOSPHATASE (BEAKER) (test xdla=560) 76 U/L 40-150 AST (SGOT) (BEAKER) (test fwlu=127) 48 U/L 5-34 ALT (SGPT) (BEAKER) (test cumq=764) 97 U/L 6-55 [id number] 04:22:00 Test Item Value Reference Range Comments PHOSPHORUS (BEAKER) (test kbcv=269) 1.8 mg/dL 2.3-4.7 [id number] 04:22:00 Test Item Value Reference Range Comments MAGNESIUM (BEAKER) (test sxmt=542) 1.2 mg/dL 1.6-2.6 CREATINE KINASE (CK)2017-03-25 04:22:00 Test Item Value Reference Range Comments CREATINE KINASE TOTAL (BEAKER) (test vbyw=232) 39 U/L 29-200 [id number] 04:13:00 Test Item Value Reference Range Comments PARTIAL THROMBOPLASTIN TIME (BEAKER) (test 80.9 seconds 22.5-36.0 euit=844) CALCIUM, [id number] 04:03:00 Test Item Value Reference Range Comments CALCIUM IONIZED (BEAKER) (test pnbc=932) 1.15 mmol/L 1.12-1.27 PH, BLOOD (BEAKER) (test kyso=8648) 7.37 CBC W/PLT COUNT & AUTO [id number] 04:02:00 Test Item Value Reference Range Comments WHITE BLOOD CELL COUNT (BEAKER) (test agmq=197) 6.7 K/ L 3.5-10.5 RED BLOOD CELL COUNT (BEAKER) (test fike=980) 4.71 M/ L 4.63-6.08 HEMOGLOBIN (BEAKER) (test fawk=830) 14.5 GM/DL 13.7-17.5 HEMATOCRIT (BEAKER) (test uwvf=554) 43.8 % 40.1-51.0 MEAN CORPUSCULAR VOLUME (BEAKER) (test jpvp=002) 93.0 fL 79.0-92.2 MEAN CORPUSCULAR HEMOGLOBIN (BEAKER) (test 30.8 pg 25.7-32.2 gesi=238) MEAN CORPUSCULAR HEMOGLOBIN CONC (BEAKER) (test 33.1 GM/DL 32.3-36.5 dzcg=312) RED CELL DISTRIBUTION WIDTH (BEAKER) (test 12.3 % 11.6-14.4 rgob=638) PLATELET COUNT (BEAKER) (test cafw=376) 195 K/CU MM 150-450 MEAN PLATELET VOLUME (BEAKER) (test zval=113) 10.9 fL 9.4-12.4 NUCLEATED RED BLOOD CELLS (BEAKER) (test 0 /100 WBC 0-0 uxmr=469) NEUTROPHILS RELATIVE PERCENT (BEAKER) (test 59 % miot=209) LYMPHOCYTES RELATIVE PERCENT (BEAKER) (test 24 % nzix=657) MONOCYTES RELATIVE PERCENT (BEAKER) (test 9 % zyjn=902) EOSINOPHILS RELATIVE PERCENT (BEAKER) (test 7 % gbid=652) BASOPHILS RELATIVE PERCENT (BEAKER) (test 1 % tjnw=540) NEUTROPHILS ABSOLUTE COUNT (BEAKER) (test 3.98 K/ L 1.78-5.38 gvxi=798) LYMPHOCYTES ABSOLUTE COUNT (BEAKER) (test 1.61 K/ L 1.32-3.57 rnff=156) MONOCYTES ABSOLUTE COUNT (BEAKER) (test 0.63 K/ L 0.30-0.82 nkhg=036) EOSINOPHILS ABSOLUTE COUNT (BEAKER) (test 0.46 K/ L 0.04-0.54 nclf=415) BASOPHILS ABSOLUTE COUNT (BEAKER) (test 0.04 K/ L 0.01-0.08 alyh=078) IMMATURE GRANULOCYTES-RELATIVE PERCENT (BEAKER) 0 % 0-1 (test lwrq=3085) TROPONIN [id number] 20:50:00 Test Item Value Reference Range Comments TROPONIN I (BEAKER) (test ayip=467) 0.64 ng/mL 0.00-0.03 Effective 06/25/2014: Reference Range ChangeNew: 0.00-0.03 Previous 0.00- 0.15Troponin I (TnI) levels must be interpreted in the context of the presenting symptoms and the clinical findings. Elevated TnI levels indicate myocardial damage, but are not specific for ischemic heart disease. Elevated TnI levels are seen in patients with other cardiac conditions (including myocarditis and congestive heartfailure), and slight TnI elevations occur in patients with other conditions, including sepsis, renalfailure, acidosis, acute neurological disease, and persistent tachyarrhythmia.PLATELET AGGREGATION: DRUG [id number] 14:47:00 Test Item Value Reference Range Comments STRONG ADP RESULT(BEAKER) (test 44 % 70-94 ewmt=4689) WEAK ADP RESULT(BEAKER) (test 37 % 60-91 uqcd=4098) ARACHADONIC ACID RESULT(BEAKER) < % 63-89 (test xknc=3484) PLATELET AGG DRUG INTERPRETATION Decreased response to ADP (BEAKER) (test bsnm=1119) suggest a Y9Q56-eigmnhqmv drug effect. PLATELET AGG DRUG INTERPRETATION Decreased response to (BEAKER) (test yxgr=225044) arachidonic acid suggests aspirin-like effect. [id number] (BEAKER) Sandrine Hickey MD (test hduf=9759) (electronic signature) PLATELET COUNT AGG (BEAKER) 214 K/CU MM 150-450 (test imrt=2620) [id number] 07:12:00 Test Item Value Reference Range Comments PARTIAL THROMBOPLASTIN TIME (BEAKER) (test 110.7 seconds 22.5-36.0 dlkm=694) [id number] 02:22:00 Test Item Value Reference Range Comments MAGNESIUM (BEAKER) (test pqdy=820) 1.9 mg/dL 1.6-2.6 BASIC METABOLIC [id number] 02:22:00 Test Item Value Reference Range Comments SODIUM (BEAKER) (test 139 meq/L 136-145 skpf=970) POTASSIUM (BEAKER) (test 4.0 meq/L 3.5-5.1 npbx=438) CHLORIDE (BEAKER) (test 106 meq/L 98-107 unnb=483) CO2 (BEAKER) (test 23 meq/L 22-29 iurb=624) BLOOD UREA NITROGEN 28 mg/dL 7-21 (BEAKER) (test bqmx=270) CREATININE (BEAKER) (test 1.31 mg/dL 0.57-1.25 zotw=426) GLUCOSE RANDOM (BEAKER) 95 mg/dL 70-105 (test ihdk=861) CALCIUM (BEAKER) (test 8.4 mg/dL 8.4-10.2 dicw=617) EGFR (BEAKER) (test 55 mL/min/1.73 sq m ESTIMATED GFR IS NOT uwrb=4533) ACCURATE CREATININE CLEARANCE IN PREDICTING GLOMERULAR FILTRATION RATE. ESTIMATED GFR IS NOT APPLICABLE FOR DIALYSIS PATIENTS. HEPATIC FUNCTION [id number] 02:22:00 Test Item Value Reference Range Comments TOTAL PROTEIN (BEAKER) (test dxyt=943) 6.9 gm/dL 6.0-8.3 ALBUMIN (BEAKER) (test rrhk=0338) 3.4 g/dL 3.5-5.0 BILIRUBIN TOTAL (BEAKER) (test jkhk=429) 0.3 mg/dL 0.2-1.2 BILIRUBIN DIRECT (BEAKER) (test unax=004) 0.2 mg/dL 0.1-0.5 ALKALINE PHOSPHATASE (BEAKER) (test fkdc=049) 72 U/L 40-150 AST (SGOT) (BEAKER) (test fnqx=955) 89 U/L 5-34 ALT (SGPT) (BEAKER) (test tbbr=584) 134 U/L 6-55 CREATINE KINASE (CK)2017-03-24 02:22:00 Test Item Value Reference Range Comments CREATINE KINASE TOTAL (BEAKER) (test ktkl=723) 57 U/L 29-200 CBC (HEMOGRAM ONLY)2017-03-24 02:02:00 Test Item Value Reference Range Comments WHITE BLOOD CELL COUNT (BEAKER) (test wwub=669) 6.7 K/ L 3.5-10.5 RED BLOOD CELL COUNT (BEAKER) (test thms=335) 4.71 M/ L 4.63-6.08 HEMOGLOBIN (BEAKER) (test lytq=420) 14.7 GM/DL 13.7-17.5 HEMATOCRIT (BEAKER) (test ipzx=037) 44.1 % 40.1-51.0 MEAN CORPUSCULAR VOLUME (BEAKER) (test ampi=658) 93.6 fL 79.0-92.2 MEAN CORPUSCULAR HEMOGLOBIN (BEAKER) (test 31.2 pg 25.7-32.2 jahe=202) MEAN CORPUSCULAR HEMOGLOBIN CONC (BEAKER) (test 33.3 GM/DL 32.3-36.5 whwf=072) RED CELL DISTRIBUTION WIDTH (BEAKER) (test 12.3 % 11.6-14.4 pfha=065) PLATELET COUNT (BEAKER) (test ydko=848) 209 K/CU MM 150-450 MEAN PLATELET VOLUME (BEAKER) (test ijzm=380) 10.7 fL 9.4-12.4 NUCLEATED RED BLOOD CELLS (BEAKER) (test 0 /100 WBC 0-0 fkfs=075) HEPATITIS PANEL, [id number] 12:12:00 Test Item Value Reference Range Comments HEPATITIS A IGM ANTIBODY (BEAKER) (test Nonreactive Nonreactive hrib=857) HEPATITIS B CORE IGM ANTIBODY (BEAKER) (test Nonreactive Nonreactive qzkz=312) HEPATITIS C ANTIBODY (BEAKER) (test qfqq=985) Nonreactive Nonreactive HEPATITIS B SURFACE ANTIGEN (2) (BEAKER) (test Nonreactive Nonreactive fbyz=3451) PLATELET AGGREGATION: DRUG [id number] 11:04:00 Test Item Value Reference Range Comments STRONG ADP RESULT(BEAKER) (test 30 % 70-94 vyix=0069) WEAK ADP RESULT(BEAKER) (test 20 % 60-91 ujbb=8098) ARACHADONIC ACID RESULT(BEAKER) 6 % 63-89 (test cehu=8441) PLATELET AGG DRUG INTERPRETATION Decreased response to (BEAKER) (test dllk=4836) arachidonic acid suggests aspirin-like effect. PLATELET AGG DRUG INTERPRETATION Decreased response to ADP (BEAKER) (test tjsz=756811) suggest a P8B58-btovzmfxx drug effect. [id number] (BEAKER) Sandrine Hickey MD (test oedi=6876) (electronic signature) PLATELET COUNT AGG (BEAKER) 221 K/CU MM 150-450 (test gojd=6211) CREATINE KINASE (CK)2017-03-23 10:42:00 Test Item Value Reference Range Comments CREATINE KINASE TOTAL (BEAKER) (test jlxr=106) 59 U/L 29-200 COMPREHENSIVE METABOLIC [id number] 10:10:00 Test Item Value Reference Range Comments TOTAL PROTEIN (BEAKER) 7.7 gm/dL 6.0-8.3 (test mpnz=265) ALBUMIN (BEAKER) (test 3.8 g/dL 3.5-5.0 lphp=0968) ALKALINE PHOSPHATASE 78 U/L 40-150 (BEAKER) (test uwer=131) BILIRUBIN TOTAL (BEAKER) 0.5 mg/dL 0.2-1.2 (test tieh=754) SODIUM (BEAKER) (test 136 meq/L 136-145 wgku=822) POTASSIUM (BEAKER) (test 4.6 meq/L 3.5-5.1 upwu=051) CHLORIDE (BEAKER) (test 106 meq/L 98-107 mcrv=527) CO2 (BEAKER) (test 22 meq/L 22-29 clxd=280) BLOOD UREA NITROGEN 23 mg/dL 7-21 (BEAKER) (test nehj=335) CREATININE (BEAKER) (test 1.17 mg/dL 0.57-1.25 hwat=798) GLUCOSE RANDOM (BEAKER) 88 mg/dL 70-105 (test dwwv=100) CALCIUM (BEAKER) (test 9.3 mg/dL 8.4-10.2 ogvy=057) AST (SGOT) (BEAKER) (test 133 U/L 5-34 fytz=910) ALT (SGPT) (BEAKER) (test 148 U/L 6-55 ndof=815) EGFR (BEAKER) (test 63 mL/min/1.73 sq m ESTIMATED GFR IS NOT zrst=0712) ACCURATE CREATININE CLEARANCE IN PREDICTING GLOMERULAR FILTRATION RATE. ESTIMATED GFR IS NOT APPLICABLE FOR DIALYSIS PATIENTS. URINALYSIS W/ [id number] 08:54:00 Test Item Value Reference Range Comments COLOR (BEAKER) (test whto=664) Red CLARITY (BEAKER) (test cixl=435) Hazy SPECIFIC GRAVITY UA (BEAKER) (test hoho=885) 1.014 1.001-1.035 PH UA (BEAKER) (test aepr=767) 6.0 5.0-8.0 PROTEIN UA (BEAKER) (test wgcy=541) 50 mg/dL Negative GLUCOSE UA (BEAKER) (test jqyl=908) Negative Negative KETONES UA (BEAKER) (test vpxk=641) Trace Negative BILIRUBIN UA (BEAKER) (test dbpk=802) Negative Negative BLOOD UA (BEAKER) (test zwds=881) Large Negative NITRITE UA (BEAKER) (test vhlm=422) Negative Negative LEUKOCYTE ESTERASE UA (BEAKER) (test ebcp=427) Small Negative UROBILINOGEN UA (BEAKER) (test aspx=279) 0.2 mg/dL 0.2-1.0 RBC UA (BEAKER) (test hfjy=212) 697 /HPF WBC UA (BEAKER) (test zsfx=862) 0 /HPF SOURCE(BEAKER) (test kbkb=9011) Urine, Voided [id number] 07:48:00 Test Item Value Reference Range Comments PARTIAL THROMBOPLASTIN TIME (BEAKER) (test 77.2 seconds 22.5-36.0 czja=169) [id number] 05:30:00 Test Item Value Reference Range Comments FIBRINOGEN LEVEL (BEAKER) (test gbiv=217) 462 mg/dl 225-434 PROTHROMBIN [id number] 05:29:00 Test Item Value Reference Range Comments PROTIME (BEAKER) (test vozu=455) 13.0 seconds 11.7-14.7 INR (BEAKER) (test bibm=774) 1.0 <=5.9 RECOMMENDED COUMADIN/WARFARIN INR THERAPY RANGESSTANDARD DOSE: 2.0 - 3.0 Includes: PROPHYLAXIS forvenous thrombosis, systemic embolization; TREATMENT for venous thrombosis and/or pulmonary embolus.HIGH RISK: Target INR is 2.5-3.5 for patients with mechanical heart valves.[id number] 05:24:00 Test Item Value Reference Range Comments PHOSPHORUS (BEAKER) (test 2.6 mg/dL 2.3-4.7 Specimen slightly hemolyzed xclm=754) BASIC METABOLIC [id number] 05:24:00 Test Item Value Reference Range Comments SODIUM (BEAKER) (test 136 meq/L 136-145 gacu=043) POTASSIUM (BEAKER) (test 4.7 meq/L 3.5-5.1 Specimen slightly olas=171) hemolyzed CHLORIDE (BEAKER) (test 108 meq/L 98-107 viab=711) CO2 (BEAKER) (test 19 meq/L 22-29 lmly=156) BLOOD UREA NITROGEN 23 mg/dL 7-21 (BEAKER) (test bbfc=207) CREATININE (BEAKER) (test 1.09 mg/dL 0.57-1.25 Specimen slightly qrhf=298) hemolyzed GLUCOSE RANDOM (BEAKER) 93 mg/dL 70-105 (test yuje=176) CALCIUM (BEAKER) (test 8.6 mg/dL 8.4-10.2 xrcs=325) EGFR (BEAKER) (test 68 mL/min/1.73 sq m ESTIMATED GFR IS NOT pwak=6374) ACCURATE CREATININE CLEARANCE IN PREDICTING GLOMERULAR FILTRATION RATE. ESTIMATED GFR IS NOT APPLICABLE FOR DIALYSIS PATIENTS. HEPATIC FUNCTION [id number] 05:24:00 Test Item Value Reference Range Comments TOTAL PROTEIN (BEAKER) (test 7.1 gm/dL 6.0-8.3 Specimen slightly hemolyzed qhnf=577) ALBUMIN (BEAKER) (test 3.4 g/dL 3.5-5.0 Specimen slightly hemolyzed mnbd=1775) BILIRUBIN TOTAL (BEAKER) (test 0.5 mg/dL 0.2-1.2 Specimen slightly hemolyzed edsn=174) BILIRUBIN DIRECT (BEAKER) (test 0.2 mg/dL 0.1-0.5 Specimen slightly hemolyzed eknz=478) ALKALINE PHOSPHATASE (BEAKER) 69 U/L 40-150 (test xsue=173) AST (SGOT) (BEAKER) (test 121 U/L 5-34 Specimen slightly hemolyzed dwmv=069) ALT (SGPT) (BEAKER) (test 123 U/L 6-55 Specimen slightly hemolyzed owyl=485) CBC (HEMOGRAM ONLY)2017-03-23 05:06:00 Test Item Value Reference Range Comments WHITE BLOOD CELL COUNT (BEAKER) (test ldkq=848) 7.1 K/ L 3.5-10.5 RED BLOOD CELL COUNT (BEAKER) (test auij=467) 5.04 M/ L 4.63-6.08 HEMOGLOBIN (BEAKER) (test vkvq=042) 15.7 GM/DL 13.7-17.5 HEMATOCRIT (BEAKER) (test fpkc=255) 47.2 % 40.1-51.0 MEAN CORPUSCULAR VOLUME (BEAKER) (test htsm=127) 93.7 fL 79.0-92.2 MEAN CORPUSCULAR HEMOGLOBIN (BEAKER) (test 31.2 pg 25.7-32.2 vfgc=242) MEAN CORPUSCULAR HEMOGLOBIN CONC (BEAKER) (test 33.3 GM/DL 32.3-36.5 zkdf=936) RED CELL DISTRIBUTION WIDTH (BEAKER) (test 12.4 % 11.6-14.4 joqw=698) PLATELET COUNT (BEAKER) (test nlyh=294) 221 K/CU MM 150-450 MEAN PLATELET VOLUME (BEAKER) (test hzmo=787) 10.5 fL 9.4-12.4 NUCLEATED RED BLOOD CELLS (BEAKER) (test 0 /100 WBC 0-0 iynd=137) [id number] 00:39:00 Test Item Value Reference Range Comments PARTIAL THROMBOPLASTIN TIME (BEAKER) (test 66.0 seconds 22.5-36.0 ahht=182) [id number] 17:41:00 Test Item Value Reference Range Comments PARTIAL THROMBOPLASTIN TIME (BEAKER) (test 57.6 seconds 22.5-36.0 fgsu=054) PLATELET AGGREGATION: DRUG [id number] 11:12:00 Test Item Value Reference Range Comments STRONG ADP RESULT(BEAKER) (test 23 % 70-94 torw=8560) WEAK ADP RESULT(BEAKER) (test 31 % 60-91 cqnv=3004) ARACHADONIC ACID RESULT(BEAKER) 13 % 63-89 (test okjb=8310) PLATELET AGG DRUG INTERPRETATION Decreased response to (BEAKER) (test wzqm=8212) arachidonic acid suggests aspirin-like effect. PLATELET AGG DRUG INTERPRETATION Decreased response to ADP (BEAKER) (test mdtc=616524) suggest a D7P06-krnfzpkbt drug effect. [id number] (BEAKER) Sandrine Hickey MD (test aefl=7604) (electronic signature) PLATELET COUNT AGG (BEAKER) 226 K/CU MM 150-450 (test fvez=5347) HEMOGLOBIN [id number] 08:29:00 Test Item Value Reference Range Comments HEMOGLOBIN A1C (BEAKER) (test qprp=901) 5.1 % 4.3-6.1 [id number] 04:39:00 Test Item Value Reference Range Comments PHOSPHORUS (BEAKER) (test xvgc=878) 3.1 mg/dL 2.3-4.7 BASIC METABOLIC [id number] 04:39:00 Test Item Value Reference Range Comments SODIUM (BEAKER) (test 135 meq/L 136-145 rorw=286) POTASSIUM (BEAKER) (test 4.5 meq/L 3.5-5.1 aiav=792) CHLORIDE (BEAKER) (test 108 meq/L 98-107 rhni=332) CO2 (BEAKER) (test 20 meq/L 22-29 lwgv=203) BLOOD UREA NITROGEN 27 mg/dL 7-21 (BEAKER) (test nvph=484) CREATININE (BEAKER) (test 1.26 mg/dL 0.57-1.25 hffl=714) GLUCOSE RANDOM (BEAKER) 95 mg/dL 70-105 (test cauq=347) CALCIUM (BEAKER) (test 9.1 mg/dL 8.4-10.2 pzzo=321) EGFR (BEAKER) (test 58 mL/min/1.73 sq m ESTIMATED GFR IS NOT tztd=6094) ACCURATE CREATININE CLEARANCE IN PREDICTING GLOMERULAR FILTRATION RATE. ESTIMATED GFR IS NOT APPLICABLE FOR DIALYSIS PATIENTS. HEPATIC FUNCTION [id number] 04:39:00 Test Item Value Reference Range Comments TOTAL PROTEIN (BEAKER) (test fmvj=347) 7.5 gm/dL 6.0-8.3 ALBUMIN (BEAKER) (test iwpd=4184) 3.6 g/dL 3.5-5.0 BILIRUBIN TOTAL (BEAKER) (test ehao=294) 0.4 mg/dL 0.2-1.2 BILIRUBIN DIRECT (BEAKER) (test yqzn=825) 0.2 mg/dL 0.1-0.5 ALKALINE PHOSPHATASE (BEAKER) (test ywaz=136) 74 U/L 40-150 AST (SGOT) (BEAKER) (test diqt=436) 23 U/L 5-34 ALT (SGPT) (BEAKER) (test krpn=190) 20 U/L 6-55 [id number] 04:33:00 Test Item Value Reference Range Comments PARTIAL THROMBOPLASTIN TIME (BEAKER) (test 50.1 seconds 22.5-36.0 ndym=995) CBC (HEMOGRAM ONLY)2017-03-22 04:22:00 Test Item Value Reference Range Comments WHITE BLOOD CELL COUNT (BEAKER) (test kykm=919) 7.4 K/ L 3.5-10.5 RED BLOOD CELL COUNT (BEAKER) (test gykz=680) 5.10 M/ L 4.63-6.08 HEMOGLOBIN (BEAKER) (test rnip=349) 16.1 GM/DL 13.7-17.5 HEMATOCRIT (BEAKER) (test qfxp=789) 47.8 % 40.1-51.0 MEAN CORPUSCULAR VOLUME (BEAKER) (test cant=009) 93.7 fL 79.0-92.2 MEAN CORPUSCULAR HEMOGLOBIN (BEAKER) (test 31.6 pg 25.7-32.2 zzfa=925) MEAN CORPUSCULAR HEMOGLOBIN CONC (BEAKER) (test 33.7 GM/DL 32.3-36.5 rjja=316) RED CELL DISTRIBUTION WIDTH (BEAKER) (test 12.5 % 11.6-14.4 tibs=026) PLATELET COUNT (BEAKER) (test qxvt=101) 208 K/CU MM 150-450 MEAN PLATELET VOLUME (BEAKER) (test lvrm=033) 10.3 fL 9.4-12.4 NUCLEATED RED BLOOD CELLS (BEAKER) (test 0 /100 WBC 0-0 kdfj=903) TROPONIN [id number] 21:48:00 Test Item Value Reference Range Comments TROPONIN I (BEAKER) (test zdbo=117) 0.63 ng/mL 0.00-0.03 Effective 06/25/2014: Reference Range ChangeNew: 0.00-0.03 Previous 0.00- 0.15Troponin I (TnI) levels must be interpreted in the context of the presenting symptoms and the clinical findings. Elevated TnI levels indicate myocardial damage, but are not specific for ischemic heart disease. Elevated TnI levels are seen in patients with other cardiac conditions (including myocarditis and congestive heartfailure), and slight TnI elevations occur in patients with other conditions, including sepsis, renalfailure, acidosis, acute neurological disease, and persistent tachyarrhythmia.B-TYPE NATRIURETIC FACTOR ( BNP)2017-03-21 21:44:00 Test Item Value Reference Range Comments B-TYPE NATRIURETIC PEPTIDE (BEAKER) (test 135 pg/mL 0-100 azji=174) CREATINE KINASE (CK), TOTAL AND [id number] 21:43:00 Test Item Value Reference Range Comments CREATINE KINASE TOTAL (BEAKER) (test ykkm=323) 52 U/L 29-200 CREATINE KINASE-MB (BEAKER) (test hkob=402) 1.8 ng/mL 0.0-6.6 CREATINE KINASE-MB INDEX (BEAKER) (test eczo=609) 3.5 % Effective 06/25/2014: CK-MB Reference Range ChangeNew: 0.0-6.6 Previous: 0.0- 4.9CK-MB Reference Range:<6.7 Normal6.7-10.0 Borderline>10.0 [id number] 21:37:00 Test Item Value Reference Range Comments PHOSPHORUS (BEAKER) (test clpe=805) 3.3 mg/dL 2.3-4.7 [id number] 21:37:00 Test Item Value Reference Range Comments MAGNESIUM (BEAKER) (test vorv=079) 1.8 mg/dL 1.6-2.6 BASIC METABOLIC [id number] 21:37:00 Test Item Value Reference Range Comments SODIUM (BEAKER) (test 136 meq/L 136-145 xjfj=589) POTASSIUM (BEAKER) (test 4.5 meq/L 3.5-5.1 fmcc=444) CHLORIDE (BEAKER) (test 105 meq/L 98-107 wdnc=830) CO2 (BEAKER) (test 24 meq/L 22-29 felm=637) BLOOD UREA NITROGEN 25 mg/dL 7-21 (BEAKER) (test jtox=208) CREATININE (BEAKER) (test 1.36 mg/dL 0.57-1.25 alrz=470) GLUCOSE RANDOM (BEAKER) 83 mg/dL 70-105 (test kakz=371) CALCIUM (BEAKER) (test 9.2 mg/dL 8.4-10.2 hmwo=456) EGFR (BEAKER) (test 53 mL/min/1.73 sq m ESTIMATED GFR IS NOT gmdb=5794) ACCURATE CREATININE CLEARANCE IN PREDICTING GLOMERULAR FILTRATION RATE. ESTIMATED GFR IS NOT APPLICABLE FOR DIALYSIS PATIENTS. LIPID [id number] 21:37:00 Test Item Value Reference Range Comments TRIGLYCERIDES (BEAKER) (test nruq=101) 289 mg/dL CHOLESTEROL (BEAKER) (test zkog=939) 228 mg/dL HDL CHOLESTEROL (BEAKER) (test trib=512) 28 mg/dL LDL CHOLESTEROL CALCULATED (BEAKER) (test 142 mg/dL yvgf=885) Triglyceride Reference Range: Low Risk <150 Borderline 150- 199 High Risk 200-499 Very High Risk >=500Cholesterol Reference Range: Low Risk <200 Borderline 200-239 High Risk > 240HDL Cholesterol Reference Range: Low Risk >=60 High Risk <40LDL Cholesterol Reference Range: Optimal <100 Near Optimal 100-129 Borderline 130-159 High 160-189 Very High >=190HEPATIC FUNCTION [id number] 21:37:00 Test Item Value Reference Range Comments TOTAL PROTEIN (BEAKER) (test hgcf=402) 7.5 gm/dL 6.0-8.3 ALBUMIN (BEAKER) (test ncyq=5934) 3.7 g/dL 3.5-5.0 BILIRUBIN TOTAL (BEAKER) (test jtqm=872) 0.3 mg/dL 0.2-1.2 BILIRUBIN DIRECT (BEAKER) (test rdnn=947) 0.1 mg/dL 0.1-0.5 ALKALINE PHOSPHATASE (BEAKER) (test eerw=583) 75 U/L 40-150 AST (SGOT) (BEAKER) (test kljz=651) 17 U/L 5-34 ALT (SGPT) (BEAKER) (test klph=616) 16 U/L 6-55 [id number] 21:31:00 Test Item Value Reference Range Comments PARTIAL THROMBOPLASTIN TIME (BEAKER) (test 37.6 seconds 22.5-36.0 iviw=200) Prior to initiating heparinCBC (HEMOGRAM ONLY)2017-03-21 21:24:00 Test Item Value Reference Range Comments WHITE BLOOD CELL COUNT (BEAKER) (test rief=586) 7.0 K/ L 3.5-10.5 RED BLOOD CELL COUNT (BEAKER) (test auqt=982) 5.21 M/ L 4.63-6.08 HEMOGLOBIN (BEAKER) (test xuem=708) 16.1 GM/DL 13.7-17.5 HEMATOCRIT (BEAKER) (test cgmz=177) 48.2 % 40.1-51.0 MEAN CORPUSCULAR VOLUME (BEAKER) (test lhfe=669) 92.5 fL 79.0-92.2 MEAN CORPUSCULAR HEMOGLOBIN (BEAKER) (test 30.9 pg 25.7-32.2 rrtb=556) MEAN CORPUSCULAR HEMOGLOBIN CONC (BEAKER) (test 33.4 GM/DL 32.3-36.5 aowr=455) RED CELL DISTRIBUTION WIDTH (BEAKER) (test 12.3 % 11.6-14.4 vybn=884) PLATELET COUNT (BEAKER) (test xtbj=885) 226 K/CU MM 150-450 MEAN PLATELET VOLUME (BEAKER) (test epuw=032) 10.3 fL 9.4-12.4 NUCLEATED RED BLOOD CELLS (BEAKER) (test 0 /100 WBC 0-0 nkgd=684)
[2018-05-29] MEDS ORDERED: KETOROLAC 30 MG/ML INJ ONE (20:03)
[2018-05-29 20:26] LABS: Absolute Monocytes 0.7 K/uL (0.1-1.3); Absolute Neutrophil 5.5 K/uL (1.8-8.0); Basophils % 0.4 % (0-1.3); Eosinophils % 4.9 % (0-4.4); Hematocrit 45.7 % (39.6-49.0); Lymphocytes % 12.8 % (15.3-44.8); MCH 31.5 pg (27.0-35.0); MCV 92.8 fL (80-100); MPV 8.4 fL (7.6-11.3); Monocytes % 8.8 % (3.3-12.3); RBC Red Blood Cell Count 4.93 M/uL (4.33-5.43)
--- NOTE | 2018-05-29 20:36 | RAD REPORT ---
EXAM DESCRIPTION: USExtremity Venous Uni Ltd05/29/2018 8:23 pm CLINICAL HISTORY: left leg pain and swelling. COMPARISON: None. FINDINGS: Left common femoral, superficial femoral, popliteal and posterior tibial veins are compre ssible and demonstrate augmentation. Doppler demonstrates good flow. IMPRESSION: No evidence of deep venous thrombosis involving the left lower extremity.
[2018-05-29 21:00] LABS: Albumin 3.3 g/dL (3.4-5.0); Bilirubin Total 0.4 mg/dL (0.2-1.0); Potassium 4.7 mmol/L (3.5-5.1); Protein, Total 8.4 g/dL (6.4-8.2)
--- NOTE | 2018-05-29 21:18 | ER ---
Nurse's Notes [facility] Name: George Trujillo Age: 67 yrs Sex: Male : 1950 Arrival Date: 05/29/2018 Time: 19:25 Bed 27 Private MD: Selina Baker C Diagnosis: Arthtritis of left ankle Presentation: 05/29 19:41 Presenting complaint: Patient states: he was just discharged s/p prostate removal on bb May 18 and now he is having severe pain in his left ankle. Transition of care: patient was not received from another setting of care. Onset of symptoms was May 29, 2018. Risk Assessment: Do you want to hurt yourself or someone else? Patient reports no desire to harm self or others. Initial Sepsis Screen: Does the patient meet any 2 criteria? No. Patient's initial sepsis screen is negative. Does the patient have a suspected source of infection? No. Patient's initial sepsis screen is negative. Care prior to arrival: None. 19:41 Method Of Arrival: Wheelchair bb 19:41 Acuity: LORI 3 bb Historical: - Allergies: 19:49 No Known Allergies; bb - Home Meds: 19:49 Unable to obtain [Active]; bb - PMHx: 19:49 Hypertension; Hyperlipidemia; prostate cancer; CAD; bb - PSHx: 19:49 CABG; prostectomy; Knee surgery; shoulder; bb - Immunization history:: Adult Immunizations up to date. - Social history:: Smoking status: Patient/guardian denies using tobacco, Patient/guardian denies using alcohol, street drugs. - Ebola Screening: : No symptoms or risks identified at this time. Screenin:12 Abuse screen: Denies threats or abuse. Denies injuries from another. Nutritional mg2 screening: No deficits noted. Tuberculosis screening: No symptoms or risk factors identified. Fall Risk IV access (20 points). Assessment: 20:11 General: Appears in no apparent distress. comfortable, Behavior is calm, cooperative. mg2 Pain: Complains of pain in left ankle Pain does not radiate. Pain currently is 6 out of 10 on a pain scale. Quality of pain is described as aching, Pain began gradually, 2 hours ago. Neuro: Level of Consciousness is awake, alert, obeys commands, Oriented to person, place, time, situation. Cardiovascular: Capillary refill < 3 seconds Patient's skin is warm and dry. Respiratory: Airway is patent Respiratory effort is even, unlabored, Respiratory pattern is regular, symmetrical. GI: No signs and/or symptoms were reported involving the gastrointestinal system. : No signs and/or symptoms were reported regarding the genitourinary system. EENT: No signs and/or symptoms were reported regarding the EENT system. Derm: Skin is intact, is healthy with good turgor, Skin is pink, warm \T\ dry. normal. Musculoskeletal: Circulation, motion, and sensation intact. Capillary refill < 3 seconds, Swelling present in left ankle. Vital Signs: 19:49 BP 150 / 74; Pulse 65; Resp 18 S; Temp 98.4(O); Pulse Ox 97% on R/A; Weight 83.01 kg bb (R); Height 5 ft. 8 in. (172.72 cm) (R); Pain 8/10; 20:14 BP 124 / 72; Pulse 72; Resp 18; Pulse Ox 100% on R/A; mg2 20:27 BP 137 / 77; Pulse 70; Resp 18; Pulse Ox 100% on R/A; mg2 21:39 BP 128 / 80; Pulse 70; Resp 17; Pulse Ox 100% on R/A; Pain 0/10; mg2 19:49 Body Mass Index 27.82 (83.01 kg, 172.72 cm) ED Course: 19:25 Patient arrived in ED. am2 19:25 Selina Baker MD is Private Physician. am2 19:33 Tiago Tee MD is Attending Physician. tw4 19:42 Triage completed. bb 19:49 Arm band placed on Patient placed in an exam room, on a stretcher, on pulse oximetry. bb Family accompanied patient. 19:54 Chandana Abarca RN is Primary Nurse. mg2 20:12 No provider procedures requiring assistance completed. Inserted saline lock: 20 gauge mg2 in right antecubital area, using aseptic technique. Blood collected. 20:13 Patient has correct armband on for positive identification. Pulse ox on. NIBP on. Door mg2 closed. Warm blanket given. 20:21 US Extremity Venous Unilateral Ltd In Process Unspecified. EDMS 21:14 Selina Baker MD is Referral Physician. tw4 21:38 IV discontinued, intact, bleeding controlled, No redness/swelling at site. Pressure mg2 dressing applied. Administered Medications: 20:10 Drug: TORadol 30 mg Route: IVP; Site: right antecubital; mg2 20:28 Follow up: Response: No adverse reaction; Marked relief of symptoms mg2 Outcome: 21:17 Discharge ordered by . vicki 21:39 Discharged to home via wheelchair, with family. mg2 21:39 Condition: good 21:39 Discharge instructions given to patient, family, Instructed on discharge instructions, follow up and referral plans. medication usage, Demonstrated understanding of instructions, follow-up care, medications, Prescriptions given X 1. 21:40 Patient left the ED. mg2 Signatures: Dispatcher [employer] EDMS Rajwinder Mann, RN RN bb Madina Francisco am2 Tiago Tee MD MD tw4 Chandana Abarca RN RN mg2
--- NOTE | 2018-05-29 21:18 | EDPHYS ---
Physician Documentation [facility] Name: George Trujillo Age: 67 yrs Sex: Male : 1950 Arrival Date: 05/29/2018 Time: 19:25 Bed 27 Private MD: Selina Baker C ED Physician Tiago Tee HPI: 05/29 21:33 This 67 yrs old Male presents to ER via Wheelchair with complaints of Ankle tw4 Swelling. 21:33 The patient presents with pain, swelling. The complaints affect the left ankle. Onset: tw4 The symptoms/episode began/occurred yesterday. Context: The problem was sustained at home. Associated signs and symptoms: The patient has no apparent associated signs or symptoms. Modifying factors: The symptoms are alleviated by nothing, the symptoms are aggravated by nothing. Severity of symptoms: At their worst the symptoms were moderate, in the emergency department the symptoms are unchanged. The patient has not experienced similar symptoms in the past. Historical: - Allergies: 19:49 No Known Allergies; bb - Home Meds: 19:49 Unable to obtain [Active]; bb - PMHx: 19:49 Hypertension; Hyperlipidemia; prostate cancer; CAD; bb - PSHx: 19:49 CABG; prostectomy; Knee surgery; shoulder; bb - Immunization history:: Adult Immunizations up to date. - Social history:: Smoking status: Patient/guardian denies using tobacco, Patient/guardian denies using alcohol, street drugs. - Ebola Screening: : No symptoms or risks identified at this time. ROS: 21:33 Constitutional: Negative for fever, chills, and weight loss, Cardiovascular: Negative tw4 for chest pain, palpitations, and edema, Respiratory: Negative for shortness of breath, cough, wheezing, and pleuritic chest pain, Abdomen/GI: Negative for abdominal pain, nausea, vomiting, diarrhea, and constipation, Back: Negative for injury and pain, MS/Extremity: Negative for injury and deformity, Skin: Negative for injury, rash, and discoloration, Neuro: Negative for headache, weakness, numbness, tingling, and seizure. Exam: 21:35 Constitutional: This is a well developed, well nourished patient who is awake, alert, tw4 and in no acute distress. Head/Face: Normocephalic, atraumatic. Chest/axilla: Normal chest wall appearance and motion. Nontender with no deformity. No lesions are appreciated. Cardiovascular: Regular rate and rhythm with a normal S1 and S2. No gallops, murmurs, or rubs. Normal PMI, no JVD. No pulse deficits. Respiratory: Lungs have equal breath sounds bilaterally, clear to auscultation and percussion. No rales, rhonchi or wheezes noted. No increased work of breathing, no retractions or nasal flaring. Abdomen/GI: Soft, non-tender, with normal bowel sounds. No distension or tympany. No guarding or rebound. No evidence of tenderness throughout. Skin: Warm, dry with normal turgor. Normal color with no rashes, no lesions, and no evidence of cellulitis. 21:35 Musculoskeletal/extremity: Extremities: grossly normal except: noted in the left lateral malleolus: Vital Signs: 19:49 BP 150 / 74; Pulse 65; Resp 18 S; Temp 98.4(O); Pulse Ox 97% on R/A; Weight 83.01 kg bb (R); Height 5 ft. 8 in. (172.72 cm) (R); Pain 8/10; 20:14 BP 124 / 72; Pulse 72; Resp 18; Pulse Ox 100% on R/A; mg2 20:27 BP 137 / 77; Pulse 70; Resp 18; Pulse Ox 100% on R/A; mg2 21:39 BP 128 / 80; Pulse 70; Resp 17; Pulse Ox 100% on R/A; Pain 0/10; mg2 19:49 Body Mass Index 27.82 (83.01 kg, 172.72 cm) MDM: 19:33 Patient medically screened. tw4 21:36 Differential diagnosis: arthritis. Data reviewed: vital signs, nurses notes. tw4 Counseling: I had a detailed discussion with the patient and/or guardian regarding: the historical points, exam findings, and any diagnostic results supporting the discharge/admit diagnosis, lab results. Medication response: Toradol relieved patient's pain. The symptoms have resolved. Response to treatment: and as a result, I will discharge patient, administer pain medication. Special discussion: I discussed with the patient/guardian in detail that at this point there is no indication for admission to the hospital. It is understood, however, that if the symptoms persist or worsen the patient needs to return immediately for re-evaluation. 05/29 19:52 Order name: CBC with Diff; Complete Time: 21:08 tw4 05/29 21:08 Interpretation: Normal except: LYM% 12.8; EOSINOPHIL % 4.9. tw4 05/29 19:52 Order name: CMP; Complete Time: 21:08 tw4 05/29 21:09 Interpretation: Normal except: BUN 27; CRE 1.60; GFR 44. tw4 05/29 19:52 Order name: Uric Acid; Complete Time: 21:08 tw4 05/29 21:09 Interpretation: Within normal limits: URIC 7.0. tw4 05/29 19:52 Order name: Saline Lock; Complete Time: 20:10 tw4 05/29 19:52 Order name: US Extremity Venous Unilateral Ltd; Complete Time: 21:08 tw4 Administered Medications: 20:10 Drug: TORadol 30 mg Route: IVP; Site: right antecubital; mg2 20:28 Follow up: Response: No adverse reaction; Marked relief of symptoms mg2 Disposition: 05/29/18 21:17 Discharged to Home. Impression: Arthtritis of left ankle. - Condition is Stable. - Discharge Instructions: Arthritis, Arthritis, [id number]. - Prescriptions for Tramadol 50 mg Oral Tablet - take 1 tablet by ORAL route every 8 hours as needed; 12 tablet. - Medication Reconciliation Form, Thank You Letter, Antibiotic Education, Prescription Opioid Use form. - Follow up: Selina Baker MD; When: Upon discharge from the Emergency Department; Reason: Further diagnostic work-up, Recheck today's complaints, Continuance of care. - Problem is new. - Symptoms have improved. Signatures: Dispatcher [employer] EDMS Rajwinder Mann RN RN bb Tiago Tee MD MD tw4 Chandana Abarca RN RN mg2 Corrections: (The following items were deleted from the chart) 21:40 21:17 05/29/2018 21:17 Discharged to Home. Impression: Arthtritis of left ankle. mg2 Condition is Stable. Forms are Medication Reconciliation Form, Thank You Letter, Antibiotic Education, Prescription Opioid Use. Follow up: Selina Baker; When: Upon discharge from the Emergency Department; Reason: Further diagnostic work-up, Recheck today's complaints, Continuance of care. Problem is new. Symptoms have improved. tw4
[2018-05-29 22:05] VITALS: TEMP 98.4
[2018-05-29 22:07] VITALS: O2SAT 100
[2018-05-29 22:10] VITALS: BP 128/80
== END 2018-05-29 21:40 | disposition home or self-care (01) ==
LOC: ER 19:22
DX: M19.072 Primary osteoarthritis, left ankle and foot (principal); I10 Essential (primary) hypertension; E78.5 Hyperlipidemia, unspecified; Z85.46 Personal history of malignant neoplasm of prostate; Z95.1 Presence of aortocoronary bypass graft
CPT/HCPCS: 36415; 80053; 84550; 85025; 93971; 96374; 99284

== ENCOUNTER 2019-08-20 21:13 | Emergency (ER) | payer MEDICARE ==
--- OUTSIDE RECORDS SUMMARY | 2019-08-20 21:18 | XMS REPORT ---
:1950 Author Organization [facility] Address [address] [place] [address] Dr. Huang [address] [place] [address] Care Team Providers Name Role Phone DYLAN [...] EXAM 2018-05-24 11:25:00 Surgical Pathology Report Case: [id number] Authorizing Provider: Dylan Stubbs MD Collected: 05/18/2018 0951 Ordering Location: [facility] PERIOPERATIVE Received: 05/18/2018 1002 SERVICES Pathologist: Osvaldo [...] PATHOLOGIC DIAGNOSIS Signing Pathologist Direct Phone Line: [phone] signed by Osvaldo Montelongo MD on 05/24/2018 [...] Acinar adenocarcinoma Histologic Grade: Leonard Pattern: Primary Hallowell Pattern: Pattern 3 Secondary Hallowell Pattern: Pattern 4 Tertiary Leonard Pattern: Not applicable Total Hallowell Score: 7 Grade Group: 2 Intraductal Carcinoma [...] Additional Pathologic Findings: Nodular prostatic hyperplasia A. 88872, 93187Y. 55659, 10552X. 44787, 91600Q. 42126X. 60357, 71026O. 95670, 93864F. 24252Z. 38182R. 66071Bezfqewhl cancerA. Right external iliac lymph node. B. [...] Reference Range Comments CREATININE FLUID (BEAKER) (test hfua=506) 0.91 mg/dL Reference Range: No Normals Assay performance has not been validated for this type of specimen.BASIC METABOLIC [id number] 06:46:00 Test Item Value Reference Range Comments SODIUM (BEAKER) (test 131 meq/L 136-145 vplt=320) POTASSIUM (BEAKER) (test 3.9 meq/L 3.5-5.1 tirl=105) CHLORIDE (BEAKER) (test 103 meq/L 98-107 ydlt=723) CO2 (BEAKER) (test 22 meq/L 22-29 urln=902) BLOOD UREA NITROGEN 20 mg/dL 7-21 (BEAKER) (test ryew=800) CREATININE (BEAKER) (test 1.06 mg/dL 0.57-1.25 bdlx=494) GLUCOSE RANDOM (BEAKER) 95 mg/dL 70-105 (test yjpv=423) CALCIUM (BEAKER) (test 8.3 mg/dL 8.4-10.2 ceav=220) EGFR (BEAKER) (test 70 mL/min/1.73 sq m ESTIMATED GFR IS NOT irlr=4743) ACCURATE CREATININE CLEARANCE IN PREDICTING GLOMERULAR FILTRATION RATE. ESTIMATED GFR IS NOT APPLICABLE FOR DIALYSIS PATIENTS. HEMOGLOBIN AND [id number] 06:04:00 Test Item Value Reference Range Comments HEMOGLOBIN (BEAKER) (test geyz=082) 14.4 GM/DL 13.7-17.5 HEMATOCRIT (BEAKER) (test njkk=497) 44.1 % 40.1-51.0 BASIC METABOLIC [id number] 04:47:00 Test Item Value Reference Range Comments SODIUM (BEAKER) (test 138 meq/L 136-145 pckd=190) POTASSIUM (BEAKER) (test 4.4 meq/L 3.5-5.1 oomw=696) CHLORIDE (BEAKER) (test 108 meq/L 98-107 cazl=380) CO2 (BEAKER) (test 22 meq/L 22-29 rztc=160) BLOOD UREA NITROGEN 23 mg/dL 7-21 (BEAKER) (test kbes=329) CREATININE (BEAKER) (test 1.29 mg/dL 0.57-1.25 tnnh=377) GLUCOSE RANDOM (BEAKER) 105 mg/dL 70-105 (test tiyu=017) CALCIUM (BEAKER) (test 8.2 mg/dL 8.4-10.2 vmrf=598) EGFR (BEAKER) (test 56 mL/min/1.73 sq m ESTIMATED GFR IS NOT tzwh=2294) ACCURATE CREATININE CLEARANCE IN PREDICTING GLOMERULAR FILTRATION RATE. ESTIMATED GFR IS NOT APPLICABLE FOR DIALYSIS PATIENTS. HEMOGLOBIN AND [id number] 04:22:00 Test Item Value Reference Range Comments HEMOGLOBIN (BEAKER) (test zosv=090) 14.1 GM/DL 13.7-17.5 HEMATOCRIT (BEAKER) (test xoum=763) 43.0 % 40.1-51.0 BASIC METABOLIC [id number] 14:47:00 Test Item Value Reference Range Comments SODIUM (BEAKER) (test 137 meq/L 136-145 pirz=894) POTASSIUM (BEAKER) (test 5.1 meq/L 3.5-5.1 qnjh=255) CHLORIDE (BEAKER) (test 108 meq/L 98-107 ukdo=134) CO2 (BEAKER) (test 24 meq/L 22-29 gijq=234) BLOOD UREA NITROGEN 27 mg/dL 7-21 (BEAKER) (test myuk=513) CREATININE (BEAKER) (test 1.44 mg/dL 0.57-1.25 crok=541) GLUCOSE RANDOM (BEAKER) 125 mg/dL 70-105 (test ytpw=650) CALCIUM (BEAKER) (test 7.9 mg/dL 8.4-10.2 ugup=425) EGFR (BEAKER) (test 49 mL/min/1.73 sq m ESTIMATED GFR IS NOT wikl=9179) ACCURATE CREATININE CLEARANCE IN PREDICTING GLOMERULAR FILTRATION RATE. ESTIMATED GFR IS NOT APPLICABLE FOR DIALYSIS PATIENTS. HEMOGLOBIN AND [id number] 14:03:00 Test Item Value Reference Range Comments HEMOGLOBIN (BEAKER) (test fgej=536) 14.4 GM/DL 13.7-17.5 HEMATOCRIT (BEAKER) (test lgpv=159) 43.8 % 40.1-51.0 URINE [id number] 15:18:00 Test Item Value Reference Range Comments CULTURE (BEAKER) (test qqod=1447) <10,000 col/mL skin clare COMPREHENSIVE METABOLIC [id number] 14:47:00 Test Item Value Reference Range Comments TOTAL PROTEIN (BEAKER) 8.1 gm/dL 6.0-8.3 Specimen slightly (test fvgn=161) hemolyzed ALBUMIN (BEAKER) (test 4.2 g/dL 3.5-5.0 Specimen slightly yxdx=9367) hemolyzed ALKALINE PHOSPHATASE 112 U/L 40-150 (BEAKER) (test emeq=330) BILIRUBIN TOTAL (BEAKER) 0.4 mg/dL 0.2-1.2 Specimen slightly (test knlk=670) hemolyzed SODIUM (BEAKER) (test 138 meq/L 136-145 lpqy=887) POTASSIUM (BEAKER) (test 4.6 meq/L 3.5-5.1 Specimen slightly fwfw=504) hemolyzed CHLORIDE (BEAKER) (test 105 meq/L 98-107 obfk=186) CO2 (BEAKER) (test 27 meq/L 22-29 boxg=383) BLOOD UREA NITROGEN 24 mg/dL 7-21 (BEAKER) (test rfts=447) CREATININE (BEAKER) (test 1.32 mg/dL 0.57-1.25 Specimen slightly tqmw=256) hemolyzed GLUCOSE RANDOM (BEAKER) 71 mg/dL 70-105 (test zmio=701) CALCIUM (BEAKER) (test 9.7 mg/dL 8.4-10.2 slfl=575) AST (SGOT) (BEAKER) (test 18 U/L 5-34 Specimen slightly bjdn=477) hemolyzed ALT (SGPT) (BEAKER) (test 18 U/L 6-55 Specimen slightly cnjk=415) hemolyzed EGFR (BEAKER) (test 54 mL/min/1.73 sq m ESTIMATED GFR IS NOT rtug=5333) ACCURATE CREATININE CLEARANCE IN PREDICTING GLOMERULAR FILTRATION RATE. ESTIMATED GFR IS NOT APPLICABLE FOR DIALYSIS PATIENTS. CBC W/PLT COUNT & AUTO [id number] 14:28:00 Test Item Value Reference Range Comments WHITE BLOOD CELL COUNT (BEAKER) (test mypk=070) 5.3 K/ L 3.5-10.5 RED BLOOD CELL COUNT (BEAKER) (test vmig=308) 5.14 M/ L 4.63-6.08 HEMOGLOBIN (BEAKER) (test vgxd=646) 15.8 GM/DL 13.7-17.5 HEMATOCRIT (BEAKER) (test tqds=144) 48.2 % 40.1-51.0 MEAN CORPUSCULAR VOLUME (BEAKER) (test hcax=319) 93.8 fL 79.0-92.2 MEAN CORPUSCULAR HEMOGLOBIN (BEAKER) (test 30.7 pg 25.7-32.2 kubv=398) MEAN CORPUSCULAR HEMOGLOBIN CONC (BEAKER) (test 32.8 GM/DL 32.3-36.5 nraj=206) RED CELL DISTRIBUTION WIDTH (BEAKER) (test 12.3 % 11.6-14.4 ptgw=099) PLATELET COUNT (BEAKER) (test ojjf=783) 223 K/CU MM 150-450 MEAN PLATELET VOLUME (BEAKER) (test dmen=769) 10.3 fL 9.4-12.4 NUCLEATED RED BLOOD CELLS (BEAKER) (test 0 /100 WBC 0-0 cxln=785) NEUTROPHILS RELATIVE PERCENT (BEAKER) (test 55 % bdtj=464) LYMPHOCYTES RELATIVE PERCENT (BEAKER) (test 24 % otlc=017) MONOCYTES RELATIVE PERCENT (BEAKER) (test 11 % bpnz=613) EOSINOPHILS RELATIVE PERCENT (BEAKER) (test 9 % abii=328) BASOPHILS RELATIVE PERCENT (BEAKER) (test 1 % qfeq=889) NEUTROPHILS ABSOLUTE COUNT (BEAKER) (test 2.87 K/ L 1.78-5.38 ypri=826) LYMPHOCYTES ABSOLUTE COUNT (BEAKER) (test 1.28 K/ L 1.32-3.57 shsn=478) MONOCYTES ABSOLUTE COUNT (BEAKER) (test 0.56 K/ L 0.30-0.82 ggwh=786) EOSINOPHILS ABSOLUTE COUNT (BEAKER) (test 0.48 K/ L 0.04-0.54 vsba=700) BASOPHILS ABSOLUTE COUNT (BEAKER) (test 0.07 K/ L 0.01-0.08 ctdp=237) IMMATURE GRANULOCYTES-RELATIVE PERCENT (BEAKER) 0 % 0-1 (test capr=5940) PROTHROMBIN [id number] 14:23:00 Test Item Value Reference Range Comments PROTIME (BEAKER) (test pxag=308) 14.5 seconds 11.7-14.7 INR (BEAKER) (test mijq=399) 1.1 <=5.9 RECOMMENDED COUMADIN/WARFARIN INR THERAPY RANGESSTANDARD DOSE: 2.0 - 3.0 Includes: PROPHYLAXIS forvenous thrombosis, systemic embolization; TREATMENT for venous thrombosis and/or pulmonary embolus.HIGH RISK: Target INR is 2.5-3.5 for patients with mechanical heart valves.[id number] 14:23:00 Test Item Value Reference Range Comments PARTIAL THROMBOPLASTIN TIME (BEAKER) (test 33.7 seconds 22.5-36.0 nsdj=606) [id number] 14:13:00 Test Item Value Reference Range Comments MAGNESIUM (BEAKER) (test pqmc=722) 2.1 mg/dL 1.6-2.6 BASIC METABOLIC [id number] 14:13:00 Test Item Value Reference Range Comments SODIUM (BEAKER) (test 138 meq/L 136-145 vxyb=125) POTASSIUM (BEAKER) (test 5.3 meq/L 3.5-5.1 mugb=321) CHLORIDE (BEAKER) (test 103 meq/L 98-107 mtsm=170) CO2 (BEAKER) (test 26 meq/L 22-29 joty=626) BLOOD UREA NITROGEN 31 mg/dL 7-21 (BEAKER) (test idrv=999) CREATININE (BEAKER) (test 1.48 mg/dL 0.57-1.25 qcru=000) GLUCOSE RANDOM (BEAKER) 88 mg/dL 70-105 (test zkgc=282) CALCIUM (BEAKER) (test 10.3 mg/dL 8.4-10.2 bscl=627) EGFR (BEAKER) (test 48 mL/min/1.73 sq m ESTIMATED GFR IS NOT izpa=2576) ACCURATE CREATININE CLEARANCE IN PREDICTING GLOMERULAR FILTRATION RATE. ESTIMATED GFR IS NOT APPLICABLE FOR DIALYSIS PATIENTS. B-TYPE NATRIURETIC FACTOR (BNP)2017-04-15 13:56:00 Test Item Value Reference Range Comments B-TYPE NATRIURETIC PEPTIDE (BEAKER) (test 430 pg/mL 0-100 bosr=653) TISSUE [id number] 10:36:00Surgical Pathology Report Case: [id number] Authorizing Provider: Balwinder Amanda MD Collected: 03/28/2017 1639 Ordering Location: [facility] Received: 03/29/2017 0937 PERIOPERATIVE SERVICES Pathologist: Harrison Mosqueda MD Specimen: Plaque, RIGHT CAROTID PLAQUE ARTERY, RIGHT CAROTID, ATHERECTOMY :CALCIFIC ATHEROSCLEROTIC PLAQUE Signing Pathologist Direct Phone Line: [phone] carotid plaqueThe specimen is received in saline labeled with the patient's information labeled "right carotid plaque" and consists of two tubular-shaped segment of calcified tissues ranging only from 2 to 3 cm in radial diameter, from 0.5 to 0.8 cm. Gis Administrator sections submitted A1 for decalcification. CG/pl PerformedCOMPREHENSIVE METABOLIC [id number] 05:36:00 Test Item Value Reference Range Comments TOTAL PROTEIN (BEAKER) 7.5 gm/dL 6.0-8.3 (test yphj=826) ALBUMIN (BEAKER) (test 3.8 g/dL 3.5-5.0 bqpu=5199) ALKALINE PHOSPHATASE 306 U/L 40-150 (BEAKER) (test rxcv=148) BILIRUBIN TOTAL (BEAKER) 0.9 mg/dL 0.2-1.2 (test ikuq=093) SODIUM (BEAKER) (test 135 meq/L 136-145 xxja=566) POTASSIUM (BEAKER) (test 4.2 meq/L 3.5-5.1 htxg=316) CHLORIDE (BEAKER) (test 96 meq/L 98-107 fwsp=286) CO2 (BEAKER) (test 28 meq/L 22-29 wuaf=850) BLOOD UREA NITROGEN 30 mg/dL 7-21 (BEAKER) (test zlhe=242) CREATININE (BEAKER) (test 1.25 mg/dL 0.57-1.25 qeqf=455) GLUCOSE RANDOM (BEAKER) 93 mg/dL 70-105 (test daxg=145) CALCIUM (BEAKER) (test 9.3 mg/dL 8.4-10.2 hscm=075) AST (SGOT) (BEAKER) (test 70 U/L 5-34 nlqf=626) ALT (SGPT) (BEAKER) (test 75 U/L 6-55 cbky=474) EGFR (BEAKER) (test 58 mL/min/1.73 sq m ESTIMATED GFR IS NOT vfsw=3818) ACCURATE CREATININE CLEARANCE IN PREDICTING GLOMERULAR FILTRATION RATE. ESTIMATED GFR IS NOT APPLICABLE FOR DIALYSIS PATIENTS. HEPATIC FUNCTION [id number] 05:35:00 Test Item Value Reference Range Comments TOTAL PROTEIN (BEAKER) (test jrra=393) 7.4 gm/dL 6.0-8.3 ALBUMIN (BEAKER) (test onkg=2846) 3.8 g/dL 3.5-5.0 BILIRUBIN TOTAL (BEAKER) (test cakv=655) 1.0 mg/dL 0.2-1.2 BILIRUBIN DIRECT (BEAKER) (test kdbj=893) 0.6 mg/dL 0.1-0.5 ALKALINE PHOSPHATASE (BEAKER) (test upmu=943) 307 U/L 40-150 AST (SGOT) (BEAKER) (test qbfb=506) 72 U/L 5-34 ALT (SGPT) (BEAKER) (test ehdq=967) 74 U/L 6-55 CBC W/PLT COUNT & AUTO [id number] 05:21:00 Test Item Value Reference Range Comments WHITE BLOOD CELL COUNT (BEAKER) (test ajrw=302) 6.2 K/ L 3.5-10.5 RED BLOOD CELL COUNT (BEAKER) (test xjhg=111) 3.16 M/ L 4.63-6.08 HEMOGLOBIN (BEAKER) (test raei=665) 9.9 GM/DL 13.7-17.5 HEMATOCRIT (BEAKER) (test dkdg=598) 29.8 % 40.1-51.0 MEAN CORPUSCULAR VOLUME (BEAKER) (test ggqk=610) 94.3 fL 79.0-92.2 MEAN CORPUSCULAR HEMOGLOBIN (BEAKER) (test 31.3 pg 25.7-32.2 ygdw=452) MEAN CORPUSCULAR HEMOGLOBIN CONC (BEAKER) (test 33.2 GM/DL 32.3-36.5 lijg=297) RED CELL DISTRIBUTION WIDTH (BEAKER) (test 12.2 % 11.6-14.4 aszx=234) PLATELET COUNT (BEAKER) (test ofjr=883) 292 K/CU MM 150-450 MEAN PLATELET VOLUME (BEAKER) (test xkbh=486) 9.9 fL 9.4-12.4 NUCLEATED RED BLOOD CELLS (BEAKER) (test 0 /100 WBC 0-0 cude=880) NEUTROPHILS RELATIVE PERCENT (BEAKER) (test 75 % zdqv=639) LYMPHOCYTES RELATIVE PERCENT (BEAKER) (test 12 % kvcd=540) MONOCYTES RELATIVE PERCENT (BEAKER) (test 9 % ruhe=701) EOSINOPHILS RELATIVE PERCENT (BEAKER) (test 3 % qexv=452) BASOPHILS RELATIVE PERCENT (BEAKER) (test 0 % fmoq=247) NEUTROPHILS ABSOLUTE COUNT (BEAKER) (test 4.69 K/ L 1.78-5.38 suyt=241) LYMPHOCYTES ABSOLUTE COUNT (BEAKER) (test 0.73 K/ L 1.32-3.57 fsvc=882) MONOCYTES ABSOLUTE COUNT (BEAKER) (test 0.55 K/ L 0.30-0.82 fxnp=524) EOSINOPHILS ABSOLUTE COUNT (BEAKER) (test 0.21 K/ L 0.04-0.54 vbcz=677) BASOPHILS ABSOLUTE COUNT (BEAKER) (test 0.02 K/ L 0.01-0.08 qsyi=511) IMMATURE GRANULOCYTES-RELATIVE PERCENT (BEAKER) 1 % 0-1 (test dtxi=4369) [id number] 07:28:00 Test Item Value Reference Range Comments MAGNESIUM (BEAKER) (test osds=635) 1.9 mg/dL 1.6-2.6 BASIC METABOLIC [id number] 07:28:00 Test Item Value Reference Range Comments SODIUM (BEAKER) (test 135 meq/L 136-145 vodk=889) POTASSIUM (BEAKER) (test 4.3 meq/L 3.5-5.1 rfks=219) CHLORIDE (BEAKER) (test 98 meq/L 98-107 slck=811) CO2 (BEAKER) (test 28 meq/L 22-29 glby=169) BLOOD UREA NITROGEN 24 mg/dL 7-21 (BEAKER) (test roch=088) CREATININE (BEAKER) (test 1.31 mg/dL 0.57-1.25 xrpz=339) GLUCOSE RANDOM (BEAKER) 92 mg/dL 70-105 (test tafb=453) CALCIUM (BEAKER) (test 8.6 mg/dL 8.4-10.2 nynt=220) EGFR (BEAKER) (test 55 mL/min/1.73 sq m ESTIMATED GFR IS NOT qjjf=1418) ACCURATE CREATININE CLEARANCE IN PREDICTING GLOMERULAR FILTRATION RATE. ESTIMATED GFR IS NOT APPLICABLE FOR DIALYSIS PATIENTS. HEPATIC FUNCTION [id number] 07:28:00 Test Item Value Reference Range Comments TOTAL PROTEIN (BEAKER) (test cthc=800) 6.3 gm/dL 6.0-8.3 ALBUMIN (BEAKER) (test lkug=0327) 3.3 g/dL 3.5-5.0 BILIRUBIN TOTAL (BEAKER) (test yloe=947) 0.7 mg/dL 0.2-1.2 BILIRUBIN DIRECT (BEAKER) (test xlui=339) 0.4 mg/dL 0.1-0.5 ALKALINE PHOSPHATASE (BEAKER) (test opml=608) 176 U/L 40-150 AST (SGOT) (BEAKER) (test vruo=969) 45 U/L 5-34 ALT (SGPT) (BEAKER) (test rybb=573) 41 U/L 6-55 CBC (HEMOGRAM ONLY)2017-04-01 06:53:00 Test Item Value Reference Range Comments WHITE BLOOD CELL COUNT (BEAKER) (test utck=946) 6.6 K/ L 3.5-10.5 RED BLOOD CELL COUNT (BEAKER) (test ysgz=317) 2.87 M/ L 4.63-6.08 HEMOGLOBIN (BEAKER) (test jzrk=873) 9.0 GM/DL 13.7-17.5 HEMATOCRIT (BEAKER) (test ppsm=761) 27.2 % 40.1-51.0 MEAN CORPUSCULAR VOLUME (BEAKER) (test osoi=197) 94.8 fL 79.0-92.2 MEAN CORPUSCULAR HEMOGLOBIN (BEAKER) (test 31.4 pg 25.7-32.2 xwqk=200) MEAN CORPUSCULAR HEMOGLOBIN CONC (BEAKER) (test 33.1 GM/DL 32.3-36.5 ichx=500) RED CELL DISTRIBUTION WIDTH (BEAKER) (test 12.5 % 11.6-14.4 wtwr=476) PLATELET COUNT (BEAKER) (test srfj=586) 226 K/CU MM 150-450 MEAN PLATELET VOLUME (BEAKER) (test tatt=504) 10.7 fL 9.4-12.4 NUCLEATED RED BLOOD CELLS (BEAKER) (test 0 /100 WBC 0-0 yvdm=378) [id number] 05:09:00 Test Item Value Reference Range Comments MAGNESIUM (BEAKER) (test cdzw=688) 1.8 mg/dL 1.6-2.6 BASIC METABOLIC [id number] 05:09:00 Test Item Value Reference Range Comments SODIUM (BEAKER) (test 135 meq/L 136-145 nbqx=930) POTASSIUM (BEAKER) (test 4.4 meq/L 3.5-5.1 snpq=134) CHLORIDE (BEAKER) (test 99 meq/L 98-107 zxii=343) CO2 (BEAKER) (test 28 meq/L 22-29 cssg=149) BLOOD UREA NITROGEN 18 mg/dL 7-21 (BEAKER) (test napr=505) CREATININE (BEAKER) (test 1.18 mg/dL 0.57-1.25 elbi=878) GLUCOSE RANDOM (BEAKER) 97 mg/dL 70-105 (test sadt=592) CALCIUM (BEAKER) (test 9.4 mg/dL 8.4-10.2 mllj=121) EGFR (BEAKER) (test 62 mL/min/1.73 sq m ESTIMATED GFR IS NOT mzqx=4175) ACCURATE CREATININE CLEARANCE IN PREDICTING GLOMERULAR FILTRATION RATE. ESTIMATED GFR IS NOT APPLICABLE FOR DIALYSIS PATIENTS. HEPATIC FUNCTION [id number] 05:09:00 Test Item Value Reference Range Comments TOTAL PROTEIN (BEAKER) (test ntnv=187) 7.1 gm/dL 6.0-8.3 ALBUMIN (BEAKER) (test secw=2544) 3.7 g/dL 3.5-5.0 BILIRUBIN TOTAL (BEAKER) (test fyye=335) 0.8 mg/dL 0.2-1.2 BILIRUBIN DIRECT (BEAKER) (test oqdd=018) 0.4 mg/dL 0.1-0.5 ALKALINE PHOSPHATASE (BEAKER) (test xvof=497) 61 U/L 40-150 AST (SGOT) (BEAKER) (test ejlt=352) 24 U/L 5-34 ALT (SGPT) (BEAKER) (test uzyi=617) 32 U/L 6-55 CBC (HEMOGRAM ONLY)2017-03-31 04:44:00 Test Item Value Reference Range Comments WHITE BLOOD CELL COUNT (BEAKER) (test efoc=182) 9.8 K/ L 3.5-10.5 RED BLOOD CELL COUNT (BEAKER) (test uvyc=312) 3.15 M/ L 4.63-6.08 HEMOGLOBIN (BEAKER) (test sary=578) 9.8 GM/DL 13.7-17.5 HEMATOCRIT (BEAKER) (test fzti=052) 29.6 % 40.1-51.0 MEAN CORPUSCULAR VOLUME (BEAKER) (test gibf=625) 94.0 fL 79.0-92.2 MEAN CORPUSCULAR HEMOGLOBIN (BEAKER) (test 31.1 pg 25.7-32.2 vxau=957) MEAN CORPUSCULAR HEMOGLOBIN CONC (BEAKER) (test 33.1 GM/DL 32.3-36.5 cybo=486) RED CELL DISTRIBUTION WIDTH (BEAKER) (test 12.5 % 11.6-14.4 xxfo=716) PLATELET COUNT (BEAKER) (test bqan=212) 222 K/CU MM 150-450 MEAN PLATELET VOLUME (BEAKER) (test vdbs=010) 10.7 fL 9.4-12.4 NUCLEATED RED BLOOD CELLS (BEAKER) (test 0 /100 WBC 0-0 zjkr=287) POCT-GLUCOSE [id number] 21:33:00 Test Item Value Reference Range Comments POC-GLUCOSE METER (BEAKER) 96 mg/dL 70-110 TESTED AT [address] (test zdzf=2266) [place] [address] POCT-GLUCOSE [id number] 17:09:00 Test Item Value Reference Range Comments POC-GLUCOSE METER (BEAKER) 122 mg/dL 70-110 TESTED AT [address] (test xrkc=1597) [place] [id number] BASIC METABOLIC [id number] 13:23:00 Test Item Value Reference Range Comments SODIUM (BEAKER) (test 133 meq/L 136-145 ukld=473) POTASSIUM (BEAKER) (test 4.4 meq/L 3.5-5.1 lsye=109) CHLORIDE (BEAKER) (test 102 meq/L 98-107 bahw=488) CO2 (BEAKER) (test 24 meq/L 22-29 rkfz=857) BLOOD UREA NITROGEN 18 mg/dL 7-21 (BEAKER) (test rmwo=104) CREATININE (BEAKER) (test 0.98 mg/dL 0.57-1.25 ctpp=326) GLUCOSE RANDOM (BEAKER) 133 mg/dL 70-105 (test nqcq=626) CALCIUM (BEAKER) (test 8.6 mg/dL 8.4-10.2 zmjb=365) EGFR (BEAKER) (test 77 mL/min/1.73 sq m ESTIMATED GFR IS NOT ydav=6717) ACCURATE CREATININE CLEARANCE IN PREDICTING GLOMERULAR FILTRATION RATE. ESTIMATED GFR IS NOT APPLICABLE FOR DIALYSIS PATIENTS. POCT-GLUCOSE [id number] 13:02:00 Test Item Value Reference Range Comments POC-GLUCOSE METER (BEAKER) 123 mg/dL 70-110 TESTED AT [address] (test wgre=3932) [facility] [address] POCT-GLUCOSE [id number] 08:01:00 Test Item Value Reference Range Comments POC-GLUCOSE METER (BEAKER) 109 mg/dL 70-110 TESTED AT [address] (test cogn=1925) [facility] [address] [id number] 07:16:00 Test Item Value Reference Range Comments MAGNESIUM (BEAKER) (test xrpq=260) 1.8 mg/dL 1.6-2.6 HEPATIC FUNCTION [id number] 07:16:00 Test Item Value Reference Range Comments TOTAL PROTEIN (BEAKER) (test yxlr=200) 6.3 gm/dL 6.0-8.3 ALBUMIN (BEAKER) (test xwpb=1356) 3.6 g/dL 3.5-5.0 BILIRUBIN TOTAL (BEAKER) (test gipq=336) 0.6 mg/dL 0.2-1.2 BILIRUBIN DIRECT (BEAKER) (test lntq=698) 0.3 mg/dL 0.1-0.5 ALKALINE PHOSPHATASE (BEAKER) (test ccdv=843) 49 U/L 40-150 AST (SGOT) (BEAKER) (test wpmz=238) 35 U/L 5-34 ALT (SGPT) (BEAKER) (test bert=826) 37 U/L 6-55 CBC (HEMOGRAM ONLY)2017-03-30 06:31:00 Test Item Value Reference Range Comments WHITE BLOOD CELL COUNT (BEAKER) (test dtyx=502) 9.8 K/ L 3.5-10.5 RED BLOOD CELL COUNT (BEAKER) (test xgcg=973) 2.87 M/ L 4.63-6.08 HEMOGLOBIN (BEAKER) (test ghdm=107) 9.0 GM/DL 13.7-17.5 HEMATOCRIT (BEAKER) (test brzg=439) 26.9 % 40.1-51.0 MEAN CORPUSCULAR VOLUME (BEAKER) (test ohzc=017) 93.7 fL 79.0-92.2 MEAN CORPUSCULAR HEMOGLOBIN (BEAKER) (test 31.4 pg 25.7-32.2 prps=045) MEAN CORPUSCULAR HEMOGLOBIN CONC (BEAKER) (test 33.5 GM/DL 32.3-36.5 ougm=283) RED CELL DISTRIBUTION WIDTH (BEAKER) (test 13.1 % 11.6-14.4 gste=347) PLATELET COUNT (BEAKER) (test wehr=669) 203 K/CU MM 150-450 MEAN PLATELET VOLUME (BEAKER) (test hert=530) 11.4 fL 9.4-12.4 NUCLEATED RED BLOOD CELLS (BEAKER) (test 0 /100 WBC 0-0 odkt=403) POCT-GLUCOSE [id number] 05:33:00 Test Item Value Reference Range Comments POC-GLUCOSE METER (BEAKER) 132 mg/dL 70-110 TESTED AT [address] (test uict=2461) [place] [id number] HEMOGLOBIN AND [id number] 10:52:00 Test Item Value Reference Range Comments HEMOGLOBIN (BEAKER) (test ygcd=225) 9.3 GM/DL 13.7-17.5 HEMATOCRIT (BEAKER) (test diyo=983) 27.4 % 40.1-51.0 POCT-GLUCOSE [id number] 07:51:00 Test Item Value Reference Range Comments POC-GLUCOSE METER (BEAKER) 147 mg/dL 70-110 TESTED AT [address] (test ctbe=9772) [place] [id number] POCT-GLUCOSE [id number] 07:22:00 Test Item Value Reference Range Comments POC-GLUCOSE METER (BEAKER) 168 mg/dL 70-[address] [facility] [address] (test olqb=6130) [place] [address] CBC W/PLT COUNT & AUTO [id number] 05:26:00 Test Item Value Reference Range Comments WHITE BLOOD CELL COUNT (BEAKER) (test rdzq=475) 9.8 K/ L 3.5-10.5 RED BLOOD CELL COUNT (BEAKER) (test wpnd=805) 2.44 M/ L 4.63-6.08 HEMOGLOBIN (BEAKER) (test fnwz=629) 7.8 GM/DL 13.7-17.5 HEMATOCRIT (BEAKER) (test srvh=161) 23.0 % 40.1-51.0 MEAN CORPUSCULAR VOLUME (BEAKER) (test nuoa=144) 94.3 fL 79.0-92.2 MEAN CORPUSCULAR HEMOGLOBIN (BEAKER) (test 32.0 pg 25.7-32.2 azpl=630) MEAN CORPUSCULAR HEMOGLOBIN CONC (BEAKER) (test 33.9 GM/DL 32.3-36.5 vwdk=945) RED CELL DISTRIBUTION WIDTH (BEAKER) (test 12.4 % 11.6-14.4 umog=354) PLATELET COUNT (BEAKER) (test szux=125) 208 K/CU MM 150-450 MEAN PLATELET VOLUME (BEAKER) (test rdfu=176) 10.3 fL 9.4-12.4 NUCLEATED RED BLOOD CELLS (BEAKER) (test 0 /100 WBC 0-0 efdj=577) NEUTROPHILS RELATIVE PERCENT (BEAKER) (test 92 % cnrr=043) LYMPHOCYTES RELATIVE PERCENT (BEAKER) (test 3 % sjjt=941) MONOCYTES RELATIVE PERCENT (BEAKER) (test 5 % ewrs=921) EOSINOPHILS RELATIVE PERCENT (BEAKER) (test 0 % kpke=867) BASOPHILS RELATIVE PERCENT (BEAKER) (test 0 % wznn=579) NEUTROPHILS ABSOLUTE COUNT (BEAKER) (test 9.05 K/ L 1.78-5.38 qaxv=737) LYMPHOCYTES ABSOLUTE COUNT (BEAKER) (test 0.25 K/ L 1.32-3.57 midf=258) MONOCYTES ABSOLUTE COUNT (BEAKER) (test 0.46 K/ L 0.30-0.82 ffyn=020) EOSINOPHILS ABSOLUTE COUNT (BEAKER) (test 0.01 K/ L 0.04-0.54 wnsw=557) BASOPHILS ABSOLUTE COUNT (BEAKER) (test 0.01 K/ L 0.01-0.08 piis=204) IMMATURE GRANULOCYTES-RELATIVE PERCENT (BEAKER) 1 % 0-1 (test oydh=5918) OXYGEN SATURATION, [id number] 04:58:00 Test Item Value Reference Range Comments O2 SATURATION (MEASURED) (BEAKER) (test nada=9507) 75.9 % [id number] 04:55:00 Test Item Value Reference Range Comments MAGNESIUM (BEAKER) (test ejxn=650) 1.9 mg/dL 1.6-2.6 BASIC METABOLIC [id number] 04:55:00 Test Item Value Reference Range Comments SODIUM (BEAKER) (test 140 meq/L 136-145 hfpu=855) POTASSIUM (BEAKER) (test 4.6 meq/L 3.5-5.1 wdhn=764) CHLORIDE (BEAKER) (test 112 meq/L 98-107 awmy=885) CO2 (BEAKER) (test 20 meq/L 22-29 vpnf=959) BLOOD UREA NITROGEN 21 mg/dL 7-21 (BEAKER) (test nriz=812) CREATININE (BEAKER) (test 1.38 mg/dL 0.57-1.25 htee=499) GLUCOSE RANDOM (BEAKER) 136 mg/dL 70-105 (test nosg=972) CALCIUM (BEAKER) (test 8.4 mg/dL 8.4-10.2 zyfl=859) EGFR (BEAKER) (test 52 mL/min/1.73 sq m ESTIMATED GFR IS NOT itli=1914) ACCURATE CREATININE CLEARANCE IN PREDICTING GLOMERULAR FILTRATION RATE. ESTIMATED GFR IS NOT APPLICABLE FOR DIALYSIS PATIENTS. LACTIC ACID, ARTERIAL, WHOLE [id number] 04:52:00 Test Item Value Reference Range Comments LACTATE BLOOD ARTERIAL (2) (BEAKER) (test 1.2 mmol/L 0.5-2.2 wwom=3047) Effective 12/10/2015: Units/Reference Range ChangeNew: 0.5-2.2 mmol/L Previous: 5 -20 mg/dLBLOOD GAS, [id number] 02:31:00 Test Item Value Reference Range Comments PH ARTERIAL (BEAKER) (test fwhn=981) 7.38 7.35-7.45 PCO2 ARTERIAL (BEAKER) (test dctk=962) 41 mmHg 35-45 PO2 ARTERIAL (BEAKER) (test kovn=210) 134 mmHg 80-90 O2 SATURATION ARTERIAL (BEAKER) (test taee=065) 98.5 % 96.0-97.0 HCO3 ARTERIAL (BEAKER) (test aupi=286) 23 mmol/L 21-29 BASE EXCESS ARTERIAL (BEAKER) (test pcnm=662) -1.7 mmol/L -2.0-3.0 PATIENT TEMPERATURE (BEAKER) (test ucxk=6195) 37.9 C FIO2 (BEAKER) (test wprq=6688) 36.0 % Post extubation ABGBLOOD GAS, [id number] 01:21:00 Test Item Value Reference Range Comments PH ARTERIAL (BEAKER) (test cdug=189) 7.48 7.35-7.45 PCO2 ARTERIAL (BEAKER) (test xxon=474) 28 mmHg 35-45 PO2 ARTERIAL (BEAKER) (test lohg=852) 155 mmHg 80-90 O2 SATURATION ARTERIAL (BEAKER) (test whob=480) 99.1 % 96.0-97.0 HCO3 ARTERIAL (BEAKER) (test ykal=165) 20 mmol/L 21-29 BASE EXCESS ARTERIAL (BEAKER) (test rcfv=753) -2.2 mmol/L -2.0-3.0 PATIENT TEMPERATURE (BEAKER) (test stee=6283) 37.3 C FIO2 (BEAKER) (test qvrd=0747) 40.0 % BLOOD GAS, [id number] 21:32:00 Test Item Value Reference Range Comments PH ARTERIAL (BEAKER) (test claf=269) 7.32 7.35-7.45 PCO2 ARTERIAL (BEAKER) (test dqhg=221) 43 mmHg 35-45 PO2 ARTERIAL (BEAKER) (test ecee=808) 90 mmHg 80-90 O2 SATURATION ARTERIAL (BEAKER) (test vowo=766) 96.5 % 96.0-97.0 HCO3 ARTERIAL (BEAKER) (test ttut=353) 22 mmol/L 21-29 BASE EXCESS ARTERIAL (BEAKER) (test ujfv=331) -4.4 mmol/L -2.0-3.0 PATIENT TEMPERATURE (BEAKER) (test cque=5124) 36.4 C FIO2 (BEAKER) (test veks=3380) 60.0 % [id number] 19:17:00 Test Item Value Reference Range Comments PHOSPHORUS (BEAKER) (test wazx=919) 3.3 mg/dL 2.3-4.7 [id number] 19:17:00 Test Item Value Reference Range Comments MAGNESIUM (BEAKER) (test alng=683) 1.9 mg/dL 1.6-2.6 BASIC METABOLIC [id number] 19:17:00 Test Item Value Reference Range Comments SODIUM (BEAKER) (test 139 meq/L 136-145 xqib=593) POTASSIUM (BEAKER) (test 4.8 meq/L 3.5-5.1 cvfg=363) CHLORIDE (BEAKER) (test 111 meq/L 98-107 okzr=415) CO2 (BEAKER) (test 18 meq/L 22-29 glxf=553) BLOOD UREA NITROGEN 23 mg/dL 7-21 (BEAKER) (test zklo=712) CREATININE (BEAKER) (test 1.12 mg/dL 0.57-1.25 txxs=369) GLUCOSE RANDOM (BEAKER) 125 mg/dL 70-105 (test wqlj=962) CALCIUM (BEAKER) (test 8.9 mg/dL 8.4-10.2 wtei=442) EGFR (BEAKER) (test 66 mL/min/1.73 sq m ESTIMATED GFR IS NOT qvrb=3593) ACCURATE CREATININE CLEARANCE IN PREDICTING GLOMERULAR FILTRATION RATE. ESTIMATED GFR IS NOT APPLICABLE FOR DIALYSIS PATIENTS. LACTIC ACID, ARTERIAL, WHOLE [id number] 19:13:00 Test Item Value Reference Range Comments LACTATE BLOOD ARTERIAL (2) (BEAKER) (test 1.3 mmol/L 0.5-2.2 duqp=5287) Effective 12/10/2015: Units/Reference Range ChangeNew: 0.5-2.2 mmol/L Previous: 5 -20 mg/dLCBC W/PLT COUNT & AUTO [id number] 18:59:00 Test Item Value Reference Range Comments WHITE BLOOD CELL COUNT (BEAKER) (test rqdo=290) 5.1 K/ L 3.5-10.5 RED BLOOD CELL COUNT (BEAKER) (test emmt=584) 3.02 M/ L 4.63-6.08 HEMOGLOBIN (BEAKER) (test lcsu=543) 9.6 GM/DL 13.7-17.5 HEMATOCRIT (BEAKER) (test cljl=448) 27.8 % 40.1-51.0 MEAN CORPUSCULAR VOLUME (BEAKER) (test daha=969) 92.1 fL 79.0-92.2 MEAN CORPUSCULAR HEMOGLOBIN (BEAKER) (test 31.8 pg 25.7-32.2 oneq=530) MEAN CORPUSCULAR HEMOGLOBIN CONC (BEAKER) (test 34.5 GM/DL 32.3-36.5 yosx=167) RED CELL DISTRIBUTION WIDTH (BEAKER) (test 12.3 % 11.6-14.4 jiia=721) PLATELET COUNT (BEAKER) (test tlln=981) 237 K/CU MM 150-450 MEAN PLATELET VOLUME (BEAKER) (test dadg=816) 10.3 fL 9.4-12.4 NUCLEATED RED BLOOD CELLS (BEAKER) (test 0 /100 WBC 0-0 pnqe=559) NEUTROPHILS RELATIVE PERCENT (BEAKER) (test 88 % xnuq=950) LYMPHOCYTES RELATIVE PERCENT (BEAKER) (test 11 % zkin=775) MONOCYTES RELATIVE PERCENT (BEAKER) (test 1 % cuxr=745) EOSINOPHILS RELATIVE PERCENT (BEAKER) (test 0 % pqqr=304) BASOPHILS RELATIVE PERCENT (BEAKER) (test 0 % jqzw=790) NEUTROPHILS ABSOLUTE COUNT (BEAKER) (test 4.49 K/ L 1.78-5.38 hedr=247) LYMPHOCYTES ABSOLUTE COUNT (BEAKER) (test 0.56 K/ L 1.32-3.57 xwcb=813) MONOCYTES ABSOLUTE COUNT (BEAKER) (test 0.03 K/ L 0.30-0.82 twza=398) EOSINOPHILS ABSOLUTE COUNT (BEAKER) (test 0.02 K/ L 0.04-0.54 zrjk=038) BASOPHILS ABSOLUTE COUNT (BEAKER) (test 0.01 K/ L 0.01-0.08 zsfe=031) IMMATURE GRANULOCYTES-RELATIVE PERCENT (BEAKER) 0 % 0-1 (test vxnu=5231) OXYGEN SATURATION, [id number] 18:31:00 Test Item Value Reference Range Comments O2 SATURATION (MEASURED) (BEAKER) (test xtez=2401) 66.2 % BLOOD GAS, [id number] 18:31:00 Test Item Value Reference Range Comments PH ARTERIAL (BEAKER) (test lbxk=517) 7.35 7.35-7.45 PCO2 ARTERIAL (BEAKER) (test koku=020) 37 mmHg 35-45 PO2 ARTERIAL (BEAKER) (test tanw=031) 88 mmHg 80-90 O2 SATURATION ARTERIAL (BEAKER) (test wonv=388) 96.8 % 96.0-97.0 HCO3 ARTERIAL (BEAKER) (test hjgx=336) 20 mmol/L 21-29 BASE EXCESS ARTERIAL (BEAKER) (test lmlf=805) -5.1 mmol/L -2.0-3.0 PATIENT TEMPERATURE (BEAKER) (test btdp=2119) 36.0 C FIO2 (BEAKER) (test sfsb=6677) 85.0 % GLUCOSE-STAT [id number] 18:31:00 Test Item Value Reference Range Comments GLUCOSE RANDOM (BEAKER) (test hpns=800) 116 mg/dL 70-110 HEMOGLOBIN-STAT [id number] 18:31:00 Test Item Value Reference Range Comments HEMOGLOBIN (BEAKER) (test hqaq=601) 10.2 g/dL 13.0-16.8 HGB/HCT (H&H) - STAT [id number] 18:31:00 Test Item Value Reference Range Comments HEMOGLOBIN (BEAKER) (test wnps=554) 10.2 GM/DL 13.0-16.8 HEMATOCRIT (BEAKER) (test qwdg=045) 30.0 % 40.0-50.0 CALCIUM, [id number] 18:31:00 Test Item Value Reference Range Comments CALCIUM IONIZED (BEAKER) (test jbku=648) 1.20 mmol/L 1.12-1.27 PH, BLOOD (BEAKER) (test iwyl=0110) 7.35 SODIUM NA-STAT [id number] 18:30:00 Test Item Value Reference Range Comments SODIUM (BEAKER) (test skfq=147) 135 meq/L 135-148 POTASSIUM-STAT [id number] 18:30:00 Test Item Value Reference Range Comments POTASSIUM (BEAKER) (test rded=684) 4.6 meq/L 3.6-5.5 THROMBOELASTOGRAPH (TEG)[id number] 17:55:00 Test Item Value Reference Range Comments TEG ACTIVATED CLOTTING TIME (BEAKER) (test 4.9 minutes 4.0-7.0 bbyr=1398) TEG FIBRINOGEN ACTIVITY (BEAKER) (test 72.6 degrees 61.0-73.0 aljx=8083) TEG PLT. AGGREGATION (BEAKER) (test dpbl=1312) 66.1 MM 55.0-65.0 TGH ACTIVATED CLOTTING TIME (BEAKER) (test 5.1 minutes 4.0-7.0 ywkm=7187) TGH FIBRINOGEN ACTIVITY (BEAKER) (test 72.3 degrees 61.0-73.0 suxr=7704) TGH PLT. AGGREGATION (BEAKER) (test kgba=7785) 62.8 MM 55.0-65.0 [id number] 17:36:00 Test Item Value Reference Range Comments ACTIVATED CLOTTING TIME [address] [facility] [address] (BEAKER) (test fdty=727) [place] [address] [id number] 17:36:00 Test Item Value Reference Range Comments ACTIVATED CLOTTING TIME 466 sec TESTED AT [place] [id number] (BEAKER) (test fltl=041) [place] [address] [id number] 17:36:00 Test Item Value Reference Range Comments ACTIVATED CLOTTING TIME 461 sec TESTED AT [place] [id number] (BEAKER) (test ashz=492) [place] [address] [id number] 17:36:00 Test Item Value Reference Range Comments ACTIVATED CLOTTING TIME 461 sec TESTED AT [place] [id number] (BEAKER) (test mkjm=471) [place] [id number] CALCIUM, [id number] 17:09:00 Test Item Value Reference Range Comments CALCIUM IONIZED (BEAKER) (test ufzu=380) 1.19 mmol/L 1.12-1.27 PH, BLOOD (BEAKER) (test dsnn=9639) 7.30 SODIUM NA-STAT [id number] 17:09:00 Test Item Value Reference Range Comments SODIUM (BEAKER) (test ljbi=155) 135 meq/L 135-148 BLOOD GAS, [id number] 17:09:00 Test Item Value Reference Range Comments PH ARTERIAL (BEAKER) (test cubp=624) 7.32 7.35-7.45 PCO2 ARTERIAL (BEAKER) (test atih=446) 43 mmHg 35-45 PO2 ARTERIAL (BEAKER) (test vued=903) 92 mmHg 80-90 O2 SATURATION ARTERIAL (BEAKER) (test zenh=825) 96.9 % 96.0-97.0 HCO3 ARTERIAL (BEAKER) (test hodi=156) 22 mmol/L 21-29 BASE EXCESS ARTERIAL (BEAKER) (test jjfy=355) -4.7 mmol/L -2.0-3.0 PATIENT TEMPERATURE (BEAKER) (test jlnh=9725) 35.7 C FIO2 (BEAKER) (test cvfv=7636) 100.0 % POTASSIUM-STAT [id number] 17:09:00 Test Item Value Reference Range Comments POTASSIUM (BEAKER) (test nubs=719) 5.6 meq/L 3.6-5.5 GLUCOSE-STAT [id number] 17:09:00 Test Item Value Reference Range Comments GLUCOSE RANDOM (BEAKER) (test xxoz=433) 125 mg/dL 70-110 HGB/HCT (H&H) - STAT [id number] 17:09:00 Test Item Value Reference Range Comments HEMOGLOBIN (BEAKER) (test pteo=866) 10.2 g/dL 13.0-16.8 HEMATOCRIT (BEAKER) (test erai=908) 30.0 % 40.0-50.0 PLATELET AGGREGATION: FUNCTION [id number] 17:04:00 Test Item Value Reference Range Comments WEAK ADP RESULT(BEAKER) (test 48 % 60-91 xqoo=9227) PLATELET FUNCTION SCREEN 40-49% indicates moderate INTERP (BEAKER) (test platelet dysfunction gyxb=8562) [id number]-[id number] Sandrine Hickey MD (electronic (BEAKER) (test suhp=1578) signature) PLATELET COUNT AGG (BEAKER) 178 K/CU MM 150-450 (test iihb=0304) [id number] 16:48:00 Test Item Value Reference Range Comments FIBRINOGEN LEVEL (BEAKER) (test guve=087) 269 mg/dl 225-434 [id number] 16:48:00 Test Item Value Reference Range Comments PARTIAL THROMBOPLASTIN TIME (BEAKER) (test 40.2 seconds 22.5-36.0 mxsx=480) PROTHROMBIN [id number] 16:47:00 Test Item Value Reference Range Comments PROTIME (BEAKER) (test drjj=915) 17.9 seconds 11.7-14.7 INR (BEAKER) (test wvao=726) 1.5 <=5.9 RECOMMENDED COUMADIN/WARFARIN INR THERAPY RANGESSTANDARD DOSE: 2.0 - 3.0 Includes: PROPHYLAXIS forvenous thrombosis, systemic embolization; TREATMENT for venous thrombosis and/or pulmonary embolus.HIGH RISK: Target INR is 2.5-3.5 for patients with mechanical heart valves.PLATELET [id number] 16:21:00 Test Item Value Reference Range Comments PLATELET COUNT (BEAKER) (test ahpx=068) 169 K/CU MM 150-450 BLOOD GAS, [id number] 16:15:00 Test Item Value Reference Range Comments PH ARTERIAL (BEAKER) (test dwgb=383) 7.36 7.35-7.45 PCO2 ARTERIAL (BEAKER) (test uzmh=733) 37 mmHg 35-45 PO2 ARTERIAL (BEAKER) (test iknf=728) 381 mmHg 80-90 O2 SATURATION ARTERIAL (BEAKER) (test qqjg=206) 99.8 % 96.0-97.0 HCO3 ARTERIAL (BEAKER) (test dcdx=849) 21 mmol/L 21-29 BASE EXCESS ARTERIAL (BEAKER) (test zvjv=091) -4.6 mmol/L -2.0-3.0 PATIENT TEMPERATURE (BEAKER) (test bpil=6935) 35.7 C FIO2 (BEAKER) (test tsvw=9263) 100.0 % SODIUM NA-STAT [id number] 16:15:00 Test Item Value Reference Range Comments SODIUM (BEAKER) (test aklh=148) 132 meq/L 135-148 POTASSIUM-STAT [id number] 16:15:00 Test Item Value Reference Range Comments POTASSIUM (BEAKER) (test wmbe=700) 5.7 meq/L 3.6-5.5 GLUCOSE-STAT [id number] 16:15:00 Test Item Value Reference Range Comments GLUCOSE RANDOM (BEAKER) (test hsuj=188) 113 mg/dL 70-110 HGB/HCT (H&H) - STAT [id number] 16:15:00 Test Item Value Reference Range Comments HEMOGLOBIN (BEAKER) (test izxg=321) 9.3 g/dL 13.0-16.8 HEMATOCRIT (BEAKER) (test akyg=304) 27.0 % 40.0-50.0 CALCIUM, [id number] 16:14:00 Test Item Value Reference Range Comments CALCIUM IONIZED (BEAKER) (test wwqb=142) 1.01 mmol/L 1.12-1.27 PH, BLOOD (BEAKER) (test auhp=6847) 7.34 HGB/HCT (H&H) - STAT [id number] 15:45:00 Test Item Value Reference Range Comments HEMOGLOBIN (BEAKER) (test rmyc=706) 8.8 g/dL 13.0-16.8 HEMATOCRIT (BEAKER) (test qpzz=966) 26.0 % 40.0-50.0 BLOOD GAS, [id number] 15:44:00 Test Item Value Reference Range Comments PH ARTERIAL (BEAKER) (test ptnu=929) 7.44 7.35-7.45 PCO2 ARTERIAL (BEAKER) (test unlo=339) 33 mmHg 35-45 PO2 ARTERIAL (BEAKER) (test yssn=528) 358 mmHg 80-90 O2 SATURATION ARTERIAL (BEAKER) (test fmuk=991) 99.8 % 96.0-97.0 HCO3 ARTERIAL (BEAKER) (test smmf=525) 22 mmol/L 21-29 BASE EXCESS ARTERIAL (BEAKER) (test luho=486) -1.9 mmol/L -2.0-3.0 PATIENT TEMPERATURE (BEAKER) (test jtjh=6303) 35.0 C FIO2 (BEAKER) (test btoa=4646) 70.0 % SODIUM NA-STAT [id number] 15:44:00 Test Item Value Reference Range Comments SODIUM (BEAKER) (test hgeg=992) 127 meq/L 135-148 POTASSIUM-STAT [id number] 15:44:00 Test Item Value Reference Range Comments POTASSIUM (BEAKER) (test cpfq=110) 7.3 meq/L 3.6-5.5 Specimen NOT hemolyzed.GLUCOSE-STAT [id number] 15:42:00 Test Item Value Reference Range Comments GLUCOSE RANDOM (BEAKER) (test tjmk=926) 104 mg/dL 70-110 POTASSIUM-STAT [id number] 15:25:00 Test Item Value Reference Range Comments POTASSIUM (BEAKER) (test ifrm=604) 6.3 meq/L 3.6-5.5 Specimen NOT hemolyzed.BLOOD GAS, [id number] 15:24:00 Test Item Value Reference Range Comments PH VENOUS (BEAKER) (test jppq=170) 7.42 7.32-7.42 PCO2 VENOUS (BEAKER) (test yljc=161) 33 mmHg 41-51 PO2 VENOUS (BEAKER) (test fvpf=466) 38 mmHg 25-40 O2 SATURATION VENOUS (BEAKER) (test xgsj=898) 91.4 % 40.0-70.0 HCO3 VENOUS (BEAKER) (test qwmu=771) 23 mmol/L 21-29 BASE EXCESS VENOUS (BEAKER) (test ezhr=043) -3.4 mmol/L -2.0-3.0 PATIENT TEMPERATURE (BEAKER) (test kztq=0909) 28.6 C FIO2 (BEAKER) (test kzta=2470) 70.0 % BLOOD GAS, [id number] 15:24:00 Test Item Value Reference Range Comments PH ARTERIAL (BEAKER) (test wpqi=430) 7.47 7.35-7.45 PCO2 ARTERIAL (BEAKER) (test zeor=497) 29 mmHg 35-45 PO2 ARTERIAL (BEAKER) (test jhic=650) 412 mmHg 80-90 O2 SATURATION ARTERIAL (BEAKER) (test nggj=839) 99.8 % 96.0-97.0 HCO3 ARTERIAL (BEAKER) (test vkzu=496) 22 mmol/L 21-29 BASE EXCESS ARTERIAL (BEAKER) (test bqta=393) -2.9 mmol/L -2.0-3.0 PATIENT TEMPERATURE (BEAKER) (test mcyo=7879) 28.6 C FIO2 (BEAKER) (test stcu=3285) 70.0 % SODIUM NA-STAT [id number] 15:24:00 Test Item Value Reference Range Comments SODIUM (BEAKER) (test qrxq=270) 127 meq/L 135-148 HGB/HCT (H&H) - STAT [id number] 15:24:00 Test Item Value Reference Range Comments HEMOGLOBIN (BEAKER) (test yqer=215) 8.8 g/dL 13.0-16.8 HEMATOCRIT (BEAKER) (test rnhu=266) 26.0 % 40.0-50.0 GLUCOSE-STAT [id number] 15:21:00 Test Item Value Reference Range Comments GLUCOSE RANDOM (BEAKER) (test hkux=267) 90 mg/dL 70-110 PLATELET AGGREGATION: FUNCTION [id number] 14:44:00 Test Item Value Reference Range Comments WEAK ADP RESULT(BEAKER) (test 34 % 60-91 dpyw=7424) PLATELET FUNCTION SCREEN 0-39% indicates marked platelet INTERP (BEAKER) (test dysfunction rcyb=8563) [id number] Zach Thrasher M.D. (electonic (BEAKER) (test wugi=5022) signature) PLATELET COUNT AGG (BEAKER) 217 K/CU MM 150-450 (test rldw=6542) PLATELET AGGREGATION: FUNCTION [id number] 14:43:00 Test Item Value Reference Range Comments WEAK ADP RESULT(BEAKER) (test 14 % 60-91 koxs=4632) PLATELET FUNCTION SCREEN 0-39% indicates marked platelet INTERP (BEAKER) (test dysfunction hwxq=4814) [id number] Zach Thrasher M.D. (electonic (BEAKER) (test hdrm=1155) signature) PLATELET COUNT AGG (BEAKER) 207 K/CU MM 150-450 (test cqeg=4472) CALCIUM, [id number] 14:02:00 Test Item Value Reference Range Comments CALCIUM IONIZED (BEAKER) (test cqhs=293) 1.16 mmol/L 1.12-1.27 PH, BLOOD (BEAKER) (test guyq=7923) 7.44 BLOOD GAS, [id number] 14:02:00 Test Item Value Reference Range Comments PH ARTERIAL (BEAKER) (test zubp=429) 7.46 7.35-7.45 PCO2 ARTERIAL (BEAKER) (test oxaq=650) 35 mmHg 35-45 PO2 ARTERIAL (BEAKER) (test ascg=923) 372 mmHg 80-90 O2 SATURATION ARTERIAL (BEAKER) (test xfss=833) 99.8 % 96.0-97.0 HCO3 ARTERIAL (BEAKER) (test rgpc=216) 24 mmol/L 21-29 BASE EXCESS ARTERIAL (BEAKER) (test dkuh=152) 0.3 mmol/L -2.0-3.0 PATIENT TEMPERATURE (BEAKER) (test dzwo=2308) 35.8 C FIO2 (BEAKER) (test vbpl=0753) 99.0 % GLUCOSE-STAT [id number] 14:01:00 Test Item Value Reference Range Comments GLUCOSE RANDOM (BEAKER) (test agen=804) 94 mg/dL 70-110 SODIUM NA-STAT [id number] 14:01:00 Test Item Value Reference Range Comments SODIUM (BEAKER) (test dsvl=891) 135 meq/L 135-148 POTASSIUM-STAT [id number] 14:01:00 Test Item Value Reference Range Comments POTASSIUM (BEAKER) (test xgnb=371) 4.5 meq/L 3.6-5.5 HGB/HCT (H&H) - STAT [id number] 14:01:00 Test Item Value Reference Range Comments HEMOGLOBIN (BEAKER) (test vnte=263) 15.0 g/dL 13.0-16.8 HEMATOCRIT (BEAKER) (test qclu=043) 44.0 % 40.0-50.0 HEPATIC FUNCTION [id number] 04:45:00 Test Item Value Reference Range Comments TOTAL PROTEIN (BEAKER) (test 7.5 gm/dL 6.0-8.3 Specimen slightly hemolyzed iupc=633) ALBUMIN (BEAKER) (test 3.6 g/dL 3.5-5.0 Specimen slightly hemolyzed lrue=2377) BILIRUBIN TOTAL (BEAKER) (test < mg/dL 0.2-1.2 Specimen slightly hemolyzed gmvg=604) BILIRUBIN DIRECT (BEAKER) (test 0.1 mg/dL 0.1-0.5 Specimen slightly hemolyzed xpll=143) ALKALINE PHOSPHATASE (BEAKER) 101 U/L 40-150 (test hqjn=494) AST (SGOT) (BEAKER) (test 34 U/L 5-34 Specimen slightly hemolyzed lohr=494) ALT (SGPT) (BEAKER) (test 81 U/L 6-55 Specimen slightly hemolyzed nott=508) CREATINE KINASE (CK)2017-03-28 04:45:00 Test Item Value Reference Range Comments CREATINE KINASE TOTAL (BEAKER) (test uozp=601) 42 U/L 29-200 [id number] 04:31:00 Test Item Value Reference Range Comments PARTIAL THROMBOPLASTIN TIME (BEAKER) (test 68.3 seconds 22.5-36.0 rhrj=390) [id number] 04:30:00 Test Item Value Reference Range Comments FIBRINOGEN LEVEL (BEAKER) (test nkpd=918) 525 mg/dl 225-434 PROTHROMBIN [id number] 04:29:00 Test Item Value Reference Range Comments PROTIME (BEAKER) (test nhac=162) 13.6 seconds 11.7-14.7 INR (BEAKER) (test cdur=423) 1.1 <=5.9 RECOMMENDED COUMADIN/WARFARIN INR THERAPY RANGESSTANDARD DOSE: 2.0 - 3.0 Includes: PROPHYLAXIS forvenous thrombosis, systemic embolization; TREATMENT for venous thrombosis and/or pulmonary embolus.HIGH RISK: Target INR is 2.5-3.5 for patients with mechanical heart valves.PLATELET [id number] 04:21:00 Test Item Value Reference Range Comments PLATELET COUNT (BEAKER) (test wars=414) 211 K/CU MM 150-450 [id number] 05:03:00 Test Item Value Reference Range Comments MAGNESIUM (BEAKER) (test 2.1 mg/dL 1.6-2.6 Specimen slightly hemolyzed vxoi=467) BASIC METABOLIC [id number] 05:03:00 Test Item Value Reference Range Comments SODIUM (BEAKER) (test 137 meq/L 136-145 mgst=779) POTASSIUM (BEAKER) (test 5.3 meq/L 3.5-5.1 Specimen slightly qylv=834) hemolyzed CHLORIDE (BEAKER) (test 105 meq/L 98-107 zqdu=520) CO2 (BEAKER) (test 23 meq/L 22-29 ojxg=399) BLOOD UREA NITROGEN 24 mg/dL 7-21 (BEAKER) (test jtmr=202) CREATININE (BEAKER) (test 1.24 mg/dL 0.57-1.25 Specimen slightly yrpq=513) hemolyzed GLUCOSE RANDOM (BEAKER) 91 mg/dL 70-105 (test ixot=089) CALCIUM (BEAKER) (test 9.1 mg/dL 8.4-10.2 dgvy=586) EGFR (BEAKER) (test 59 mL/min/1.73 sq m ESTIMATED GFR IS NOT mvhy=2328) ACCURATE CREATININE CLEARANCE IN PREDICTING GLOMERULAR FILTRATION RATE. ESTIMATED GFR IS NOT APPLICABLE FOR DIALYSIS PATIENTS. HEPATIC FUNCTION [id number] 05:03:00 Test Item Value Reference Range Comments TOTAL PROTEIN (BEAKER) (test 7.6 gm/dL 6.0-8.3 Specimen slightly hemolyzed lkxf=948) ALBUMIN (BEAKER) (test 3.6 g/dL 3.5-5.0 Specimen slightly hemolyzed yylq=7991) BILIRUBIN TOTAL (BEAKER) (test 0.4 mg/dL 0.2-1.2 Specimen slightly hemolyzed wsvo=038) BILIRUBIN DIRECT (BEAKER) (test 0.2 mg/dL 0.1-0.5 Specimen slightly hemolyzed wbgz=313) ALKALINE PHOSPHATASE (BEAKER) 80 U/L 40-150 (test djzo=175) AST (SGOT) (BEAKER) (test 47 U/L 5-34 Specimen slightly hemolyzed ukvo=770) ALT (SGPT) (BEAKER) (test 87 U/L 6-55 Specimen slightly hemolyzed dblv=133) CREATINE KINASE (CK)2017-03-27 05:03:00 Test Item Value Reference Range Comments CREATINE KINASE TOTAL (BEAKER) (test npdh=300) 51 U/L 29-200 [id number] 05:00:00 Test Item Value Reference Range Comments PARTIAL THROMBOPLASTIN TIME (BEAKER) (test 81.9 seconds 22.5-36.0 ortg=558) CALCIUM, [id number] 06:12:00 Test Item Value Reference Range Comments CALCIUM IONIZED (BEAKER) (test xldc=321) 1.21 mmol/L 1.12-1.27 PH, BLOOD (BEAKER) (test nqnv=4199) 7.34 [id number] 05:57:00 Test Item Value Reference Range Comments PHOSPHORUS (BEAKER) (test kpxh=818) 3.0 mg/dL 2.3-4.7 [id number] 05:57:00 Test Item Value Reference Range Comments MAGNESIUM (BEAKER) (test amjb=615) 2.2 mg/dL 1.6-2.6 BASIC METABOLIC [id number] 05:57:00 Test Item Value Reference Range Comments SODIUM (BEAKER) (test 137 meq/L 136-145 prfy=041) POTASSIUM (BEAKER) (test 4.6 meq/L 3.5-5.1 xnmp=273) CHLORIDE (BEAKER) (test 106 meq/L 98-107 rcur=848) CO2 (BEAKER) (test 22 meq/L 22-29 ianp=746) BLOOD UREA NITROGEN 24 mg/dL 7-21 (BEAKER) (test ghkl=610) CREATININE (BEAKER) (test 1.26 mg/dL 0.57-1.25 qjrm=646) GLUCOSE RANDOM (BEAKER) 88 mg/dL 70-105 (test xnov=946) CALCIUM (BEAKER) (test 8.7 mg/dL 8.4-10.2 vfiz=530) EGFR (BEAKER) (test 58 mL/min/1.73 sq m ESTIMATED GFR IS NOT igaz=9295) ACCURATE CREATININE CLEARANCE IN PREDICTING GLOMERULAR FILTRATION RATE. ESTIMATED GFR IS NOT APPLICABLE FOR DIALYSIS PATIENTS. HEPATIC FUNCTION [id number] 05:57:00 Test Item Value Reference Range Comments TOTAL PROTEIN (BEAKER) (test fqaa=480) 7.4 gm/dL 6.0-8.3 ALBUMIN (BEAKER) (test crax=9749) 3.6 g/dL 3.5-5.0 BILIRUBIN TOTAL (BEAKER) (test kkqc=778) 0.4 mg/dL 0.2-1.2 BILIRUBIN DIRECT (BEAKER) (test jgfy=453) 0.2 mg/dL 0.1-0.5 ALKALINE PHOSPHATASE (BEAKER) (test ylod=805) 77 U/L 40-150 AST (SGOT) (BEAKER) (test ieit=926) 40 U/L 5-34 ALT (SGPT) (BEAKER) (test pzrm=702) 86 U/L 6-55 CREATINE KINASE (CK)2017-03-26 05:57:00 Test Item Value Reference Range Comments CREATINE KINASE TOTAL (BEAKER) (test fpvv=524) 59 U/L 29-200 [id number] 04:51:00 Test Item Value Reference Range Comments PARTIAL THROMBOPLASTIN TIME (BEAKER) (test 76.6 seconds 22.5-36.0 yiof=156) CBC W/PLT COUNT & AUTO [id number] 04:37:00 Test Item Value Reference Range Comments WHITE BLOOD CELL COUNT (BEAKER) (test iklt=180) 6.2 K/ L 3.5-10.5 RED BLOOD CELL COUNT (BEAKER) (test ntui=491) 4.54 M/ L 4.63-6.08 HEMOGLOBIN (BEAKER) (test bjru=743) 14.4 GM/DL 13.7-17.5 HEMATOCRIT (BEAKER) (test hues=443) 42.6 % 40.1-51.0 MEAN CORPUSCULAR VOLUME (BEAKER) (test vdnj=949) 93.8 fL 79.0-92.2 MEAN CORPUSCULAR HEMOGLOBIN (BEAKER) (test 31.7 pg 25.7-32.2 jujt=025) MEAN CORPUSCULAR HEMOGLOBIN CONC (BEAKER) (test 33.8 GM/DL 32.3-36.5 gjli=017) RED CELL DISTRIBUTION WIDTH (BEAKER) (test 12.2 % 11.6-14.4 tdnd=493) PLATELET COUNT (BEAKER) (test inwm=683) 207 K/CU MM 150-450 MEAN PLATELET VOLUME (BEAKER) (test vjoc=210) 11.0 fL 9.4-12.4 NUCLEATED RED BLOOD CELLS (BEAKER) (test 0 /100 WBC 0-0 ibwp=354) NEUTROPHILS RELATIVE PERCENT (BEAKER) (test 60 % bdln=527) LYMPHOCYTES RELATIVE PERCENT (BEAKER) (test 23 % aokg=757) MONOCYTES RELATIVE PERCENT (BEAKER) (test 10 % sxhq=786) EOSINOPHILS RELATIVE PERCENT (BEAKER) (test 7 % yyfd=677) BASOPHILS RELATIVE PERCENT (BEAKER) (test 1 % zqyg=521) NEUTROPHILS ABSOLUTE COUNT (BEAKER) (test 3.68 K/ L 1.78-5.38 qldf=512) LYMPHOCYTES ABSOLUTE COUNT (BEAKER) (test 1.41 K/ L 1.32-3.57 vyyb=633) MONOCYTES ABSOLUTE COUNT (BEAKER) (test 0.60 K/ L 0.30-0.82 wftl=890) EOSINOPHILS ABSOLUTE COUNT (BEAKER) (test 0.41 K/ L 0.04-0.54 kxxd=383) BASOPHILS ABSOLUTE COUNT (BEAKER) (test 0.04 K/ L 0.01-0.08 bela=597) IMMATURE GRANULOCYTES-RELATIVE PERCENT (BEAKER) 0 % 0-1 (test kfnk=2425) BASIC METABOLIC [id number] 05:19:00 Test Item Value Reference Range Comments SODIUM (BEAKER) (test 138 meq/L 136-145 mueb=357) POTASSIUM (BEAKER) (test 3.9 meq/L 3.5-5.1 qqyx=686) CHLORIDE (BEAKER) (test 109 meq/L 98-107 znsw=699) CO2 (BEAKER) (test 23 meq/L 22-29 xtnz=566) BLOOD UREA NITROGEN 28 mg/dL 7-21 (BEAKER) (test aoig=432) CREATININE (BEAKER) (test 1.18 mg/dL 0.57-1.25 megi=393) GLUCOSE RANDOM (BEAKER) 84 mg/dL 70-105 (test ckal=659) CALCIUM (BEAKER) (test 7.8 mg/dL 8.4-10.2 hoqi=828) EGFR (BEAKER) (test 62 mL/min/1.73 sq m ESTIMATED GFR IS NOT psid=4956) ACCURATE CREATININE CLEARANCE IN PREDICTING GLOMERULAR FILTRATION RATE. ESTIMATED GFR IS NOT APPLICABLE FOR DIALYSIS PATIENTS. [id number] 05:17:00 Test Item Value Reference Range Comments PHOSPHORUS (BEAKER) (test bwtk=465) 2.6 mg/dL 2.3-4.7 [id number] 05:17:00 Test Item Value Reference Range Comments MAGNESIUM (BEAKER) (test nlrd=373) 1.8 mg/dL 1.6-2.6 HEPATIC FUNCTION [id number] 05:17:00 Test Item Value Reference Range Comments TOTAL PROTEIN (BEAKER) (test xedd=104) 6.6 gm/dL 6.0-8.3 ALBUMIN (BEAKER) (test buwd=2502) 3.2 g/dL 3.5-5.0 BILIRUBIN TOTAL (BEAKER) (test tvme=225) < mg/dL 0.2-1.2 BILIRUBIN DIRECT (BEAKER) (test mqvf=904) 0.1 mg/dL 0.1-0.5 ALKALINE PHOSPHATASE (BEAKER) (test ghab=960) 76 U/L 40-150 AST (SGOT) (BEAKER) (test assh=745) 48 U/L 5-34 ALT (SGPT) (BEAKER) (test fxjr=050) 97 U/L 6-55 [id number] 04:22:00 Test Item Value Reference Range Comments PHOSPHORUS (BEAKER) (test sxfl=382) 1.8 mg/dL 2.3-4.7 [id number] 04:22:00 Test Item Value Reference Range Comments MAGNESIUM (BEAKER) (test gtte=933) 1.2 mg/dL 1.6-2.6 CREATINE KINASE (CK)2017-03-25 04:22:00 Test Item Value Reference Range Comments CREATINE KINASE TOTAL (BEAKER) (test xtku=258) 39 U/L 29-200 [id number] 04:13:00 Test Item Value Reference Range Comments PARTIAL THROMBOPLASTIN TIME (BEAKER) (test 80.9 seconds 22.5-36.0 ayhh=929) CALCIUM, [id number] 04:03:00 Test Item Value Reference Range Comments CALCIUM IONIZED (BEAKER) (test tvlj=266) 1.15 mmol/L 1.12-1.27 PH, BLOOD (BEAKER) (test qred=1216) 7.37 CBC W/PLT COUNT & AUTO [id number] 04:02:00 Test Item Value Reference Range Comments WHITE BLOOD CELL COUNT (BEAKER) (test vlfj=024) 6.7 K/ L 3.5-10.5 RED BLOOD CELL COUNT (BEAKER) (test ntuk=912) 4.71 M/ L 4.63-6.08 HEMOGLOBIN (BEAKER) (test idfl=090) 14.5 GM/DL 13.7-17.5 HEMATOCRIT (BEAKER) (test teir=789) 43.8 % 40.1-51.0 MEAN CORPUSCULAR VOLUME (BEAKER) (test vqsu=500) 93.0 fL 79.0-92.2 MEAN CORPUSCULAR HEMOGLOBIN (BEAKER) (test 30.8 pg 25.7-32.2 rppy=299) MEAN CORPUSCULAR HEMOGLOBIN CONC (BEAKER) (test 33.1 GM/DL 32.3-36.5 wdxx=032) RED CELL DISTRIBUTION WIDTH (BEAKER) (test 12.3 % 11.6-14.4 pucy=368) PLATELET COUNT (BEAKER) (test dokf=180) 195 K/CU MM 150-450 MEAN PLATELET VOLUME (BEAKER) (test lmkp=921) 10.9 fL 9.4-12.4 NUCLEATED RED BLOOD CELLS (BEAKER) (test 0 /100 WBC 0-0 wtmj=911) NEUTROPHILS RELATIVE PERCENT (BEAKER) (test 59 % vfvz=581) LYMPHOCYTES RELATIVE PERCENT (BEAKER) (test 24 % poni=696) MONOCYTES RELATIVE PERCENT (BEAKER) (test 9 % lboc=424) EOSINOPHILS RELATIVE PERCENT (BEAKER) (test 7 % hmts=923) BASOPHILS RELATIVE PERCENT (BEAKER) (test 1 % upje=619) NEUTROPHILS ABSOLUTE COUNT (BEAKER) (test 3.98 K/ L 1.78-5.38 wvps=254) LYMPHOCYTES ABSOLUTE COUNT (BEAKER) (test 1.61 K/ L 1.32-3.57 ldrk=972) MONOCYTES ABSOLUTE COUNT (BEAKER) (test 0.63 K/ L 0.30-0.82 tddu=312) EOSINOPHILS ABSOLUTE COUNT (BEAKER) (test 0.46 K/ L 0.04-0.54 ylee=412) BASOPHILS ABSOLUTE COUNT (BEAKER) (test 0.04 K/ L 0.01-0.08 bkub=738) IMMATURE GRANULOCYTES-RELATIVE PERCENT (BEAKER) 0 % 0-1 (test uyry=3941) TROPONIN [id number] 20:50:00 Test Item Value Reference Range Comments TROPONIN I (BEAKER) (test crgq=592) 0.64 ng/mL 0.00-0.03 Effective 06/25/2014: Reference Range [...] neurological disease, and persistent tachyarrhythmia.PLATELET AGGREGATION: DRUG [id number] 14:47:00 Test Item Value Reference Range Comments STRONG ADP RESULT(BEAKER) (test 44 % 70-94 tdzq=9059) WEAK ADP RESULT(BEAKER) (test 37 % 60-91 qvbi=7614) ARACHADONIC ACID RESULT(BEAKER) < % 63-89 (test rixm=9015) PLATELET AGG DRUG INTERPRETATION Decreased response to ADP (BEAKER) (test cijz=7261) suggest a V3D63-npnfxorbl drug effect. PLATELET AGG DRUG INTERPRETATION Decreased response to (BEAKER) (test onpg=138524) arachidonic acid suggests aspirin-like effect. [id number] (BEAKER) Sandrine Hickey MD (test yhmn=7687) (electronic signature) PLATELET COUNT AGG (BEAKER) 214 K/CU MM 150-450 (test bmbe=5412) [id number] 07:12:00 Test Item Value Reference Range Comments PARTIAL THROMBOPLASTIN TIME (BEAKER) (test 110.7 seconds 22.5-36.0 pgii=003) [id number] 02:22:00 Test Item Value Reference Range Comments MAGNESIUM (BEAKER) (test qgzr=749) 1.9 mg/dL 1.6-2.6 BASIC METABOLIC [id number] 02:22:00 Test Item Value Reference Range Comments SODIUM (BEAKER) (test 139 meq/L 136-145 uudm=639) POTASSIUM (BEAKER) (test 4.0 meq/L 3.5-5.1 zmor=361) CHLORIDE (BEAKER) (test 106 meq/L 98-107 zlxa=852) CO2 (BEAKER) (test 23 meq/L 22-29 ogrv=435) BLOOD UREA NITROGEN 28 mg/dL 7-21 (BEAKER) (test xbut=769) CREATININE (BEAKER) (test 1.31 mg/dL 0.57-1.25 fstw=582) GLUCOSE RANDOM (BEAKER) 95 mg/dL 70-105 (test bzrn=952) CALCIUM (BEAKER) (test 8.4 mg/dL 8.4-10.2 mryy=274) EGFR (BEAKER) (test 55 mL/min/1.73 sq m ESTIMATED GFR IS NOT pege=5773) ACCURATE CREATININE CLEARANCE IN PREDICTING GLOMERULAR FILTRATION RATE. ESTIMATED GFR IS NOT APPLICABLE FOR DIALYSIS PATIENTS. HEPATIC FUNCTION [id number] 02:22:00 Test Item Value Reference Range Comments TOTAL PROTEIN (BEAKER) (test yipn=896) 6.9 gm/dL 6.0-8.3 ALBUMIN (BEAKER) (test xvyb=9474) 3.4 g/dL 3.5-5.0 BILIRUBIN TOTAL (BEAKER) (test ldpc=125) 0.3 mg/dL 0.2-1.2 BILIRUBIN DIRECT (BEAKER) (test rmrq=214) 0.2 mg/dL 0.1-0.5 ALKALINE PHOSPHATASE (BEAKER) (test vsar=390) 72 U/L 40-150 AST (SGOT) (BEAKER) (test zuoe=894) 89 U/L 5-34 ALT (SGPT) (BEAKER) (test jkgu=225) 134 U/L 6-55 CREATINE KINASE (CK)2017-03-24 02:22:00 Test Item Value Reference Range Comments CREATINE KINASE TOTAL (BEAKER) (test jean=557) 57 U/L 29-200 CBC (HEMOGRAM ONLY)2017-03-24 02:02:00 Test Item Value Reference Range Comments WHITE BLOOD CELL COUNT (BEAKER) (test ycrw=397) 6.7 K/ L 3.5-10.5 RED BLOOD CELL COUNT (BEAKER) (test kddk=432) 4.71 M/ L 4.63-6.08 HEMOGLOBIN (BEAKER) (test uspy=744) 14.7 GM/DL 13.7-17.5 HEMATOCRIT (BEAKER) (test afvl=922) 44.1 % 40.1-51.0 MEAN CORPUSCULAR VOLUME (BEAKER) (test uhcw=921) 93.6 fL 79.0-92.2 MEAN CORPUSCULAR HEMOGLOBIN (BEAKER) (test 31.2 pg 25.7-32.2 dqli=009) MEAN CORPUSCULAR HEMOGLOBIN CONC (BEAKER) (test 33.3 GM/DL 32.3-36.5 xzvn=442) RED CELL DISTRIBUTION WIDTH (BEAKER) (test 12.3 % 11.6-14.4 uycx=374) PLATELET COUNT (BEAKER) (test ajkn=953) 209 K/CU MM 150-450 MEAN PLATELET VOLUME (BEAKER) (test true=709) 10.7 fL 9.4-12.4 NUCLEATED RED BLOOD CELLS (BEAKER) (test 0 /100 WBC 0-0 cram=114) HEPATITIS PANEL, [id number] 12:12:00 Test Item Value Reference Range Comments HEPATITIS A IGM ANTIBODY (BEAKER) (test Nonreactive Nonreactive hrpz=445) HEPATITIS B CORE IGM ANTIBODY (BEAKER) (test Nonreactive Nonreactive ezat=949) HEPATITIS C ANTIBODY (BEAKER) (test teoi=701) Nonreactive Nonreactive HEPATITIS B SURFACE ANTIGEN (2) (BEAKER) (test Nonreactive Nonreactive yhmi=9073) PLATELET AGGREGATION: DRUG [id number] 11:04:00 Test Item Value Reference Range Comments STRONG ADP RESULT(BEAKER) (test 30 % 70-94 oivl=6883) WEAK ADP RESULT(BEAKER) (test 20 % 60-91 bbht=9522) ARACHADONIC ACID RESULT(BEAKER) 6 % 63-89 (test wlap=6792) PLATELET AGG DRUG INTERPRETATION Decreased response to (BEAKER) (test jzpi=4829) arachidonic acid suggests aspirin-like effect. PLATELET AGG DRUG INTERPRETATION Decreased response to ADP (BEAKER) (test miey=698533) suggest a T1M42-besprvltb drug effect. [id number] (BEAKER) Sandrine Hickey MD (test jxtt=9646) (electronic signature) PLATELET COUNT AGG (BEAKER) 221 K/CU MM 150-450 (test udcy=5984) CREATINE KINASE (CK)2017-03-23 10:42:00 Test Item Value Reference Range Comments CREATINE KINASE TOTAL (BEAKER) (test itff=644) 59 U/L 29-200 COMPREHENSIVE METABOLIC [id number] 10:10:00 Test Item Value Reference Range Comments TOTAL PROTEIN (BEAKER) 7.7 gm/dL 6.0-8.3 (test yqct=005) ALBUMIN (BEAKER) (test 3.8 g/dL 3.5-5.0 gkiv=5271) ALKALINE PHOSPHATASE 78 U/L 40-150 (BEAKER) (test jgkq=089) BILIRUBIN TOTAL (BEAKER) 0.5 mg/dL 0.2-1.2 (test jrmg=366) SODIUM (BEAKER) (test 136 meq/L 136-145 jjjs=618) POTASSIUM (BEAKER) (test 4.6 meq/L 3.5-5.1 fkqn=679) CHLORIDE (BEAKER) (test 106 meq/L 98-107 uwtg=868) CO2 (BEAKER) (test 22 meq/L 22-29 xvyt=659) BLOOD UREA NITROGEN 23 mg/dL 7-21 (BEAKER) (test xxij=239) CREATININE (BEAKER) (test 1.17 mg/dL 0.57-1.25 bmba=927) GLUCOSE RANDOM (BEAKER) 88 mg/dL 70-105 (test wyty=396) CALCIUM (BEAKER) (test 9.3 mg/dL 8.4-10.2 ofbh=215) AST (SGOT) (BEAKER) (test 133 U/L 5-34 jult=279) ALT (SGPT) (BEAKER) (test 148 U/L 6-55 pequ=596) EGFR (BEAKER) (test 63 mL/min/1.73 sq m ESTIMATED GFR IS NOT pbql=1870) ACCURATE CREATININE CLEARANCE IN PREDICTING GLOMERULAR FILTRATION RATE. ESTIMATED GFR IS NOT APPLICABLE FOR DIALYSIS PATIENTS. URINALYSIS W/ [id number] 08:54:00 Test Item Value Reference Range Comments COLOR (BEAKER) (test vfaz=722) Red CLARITY (BEAKER) (test qtyn=907) Hazy SPECIFIC GRAVITY UA (BEAKER) (test fbre=833) 1.014 1.001-1.035 PH UA (BEAKER) (test ouqb=962) 6.0 5.0-8.0 PROTEIN UA (BEAKER) (test glxx=539) 50 mg/dL Negative GLUCOSE UA (BEAKER) (test npki=126) Negative Negative KETONES UA (BEAKER) (test qmst=941) Trace Negative BILIRUBIN UA (BEAKER) (test ixfp=703) Negative Negative BLOOD UA (BEAKER) (test ougv=650) Large Negative NITRITE UA (BEAKER) (test rfsu=573) Negative Negative LEUKOCYTE ESTERASE UA (BEAKER) (test rwmh=802) Small Negative UROBILINOGEN UA (BEAKER) (test nxcg=631) 0.2 mg/dL 0.2-1.0 RBC UA (BEAKER) (test oaby=224) 697 /HPF WBC UA (BEAKER) (test ynnk=287) 0 /HPF SOURCE(BEAKER) (test paqb=3017) Urine, Voided [id number] 07:48:00 Test Item Value Reference Range Comments PARTIAL THROMBOPLASTIN TIME (BEAKER) (test 77.2 seconds 22.5-36.0 jhpg=300) [id number] 05:30:00 Test Item Value Reference Range Comments FIBRINOGEN LEVEL (BEAKER) (test ffzi=952) 462 mg/dl 225-434 PROTHROMBIN TIME/[id number] 05:29:00 Test Item Value Reference Range Comments PROTIME (BEAKER) (test qrdx=894) 13.0 seconds 11.7-14.7 INR (BEAKER) (test tbra=406) 1.0 <=5.9 RECOMMENDED COUMADIN/WARFARIN INR THERAPY RANGESSTANDARD DOSE: 2.0 - 3.0 Includes: PROPHYLAXIS forvenous thrombosis, systemic embolization; TREATMENT for venous thrombosis and/or pulmonary embolus.HIGH RISK: Target INR is 2.5-3.5 for patients with mechanical heart valves.[id number] 05:24:00 Test Item Value Reference Range Comments PHOSPHORUS (BEAKER) (test 2.6 mg/dL 2.3-4.7 Specimen slightly hemolyzed wzio=497) BASIC METABOLIC [id number] 05:24:00 Test Item Value Reference Range Comments SODIUM (BEAKER) (test 136 meq/L 136-145 fhgx=317) POTASSIUM (BEAKER) (test 4.7 meq/L 3.5-5.1 Specimen slightly bxbv=679) hemolyzed CHLORIDE (BEAKER) (test 108 meq/L 98-107 mnpn=991) CO2 (BEAKER) (test 19 meq/L 22-29 wxfm=470) BLOOD UREA NITROGEN 23 mg/dL 7-21 (BEAKER) (test encn=996) CREATININE (BEAKER) (test 1.09 mg/dL 0.57-1.25 Specimen slightly gvwn=099) hemolyzed GLUCOSE RANDOM (BEAKER) 93 mg/dL 70-105 (test halk=375) CALCIUM (BEAKER) (test 8.6 mg/dL 8.4-10.2 raaw=586) EGFR (BEAKER) (test 68 mL/min/1.73 sq m ESTIMATED GFR IS NOT uxjc=4168) ACCURATE CREATININE CLEARANCE IN PREDICTING GLOMERULAR FILTRATION RATE. ESTIMATED GFR IS NOT APPLICABLE FOR DIALYSIS PATIENTS. HEPATIC FUNCTION [id number] 05:24:00 Test Item Value Reference Range Comments TOTAL PROTEIN (BEAKER) (test 7.1 gm/dL 6.0-8.3 Specimen slightly hemolyzed aysu=207) ALBUMIN (BEAKER) (test 3.4 g/dL 3.5-5.0 Specimen slightly hemolyzed yukh=9922) BILIRUBIN TOTAL (BEAKER) (test 0.5 mg/dL 0.2-1.2 Specimen slightly hemolyzed cqvr=858) BILIRUBIN DIRECT (BEAKER) (test 0.2 mg/dL 0.1-0.5 Specimen slightly hemolyzed eawo=138) ALKALINE PHOSPHATASE (BEAKER) 69 U/L 40-150 (test qamg=582) AST (SGOT) (BEAKER) (test 121 U/L 5-34 Specimen slightly hemolyzed rkvd=493) ALT (SGPT) (BEAKER) (test 123 U/L 6-55 Specimen slightly hemolyzed mjuu=269) CBC (HEMOGRAM ONLY)2017-03-23 05:06:00 Test Item Value Reference Range Comments WHITE BLOOD CELL COUNT (BEAKER) (test aidy=472) 7.1 K/ L 3.5-10.5 RED BLOOD CELL COUNT (BEAKER) (test diqp=094) 5.04 M/ L 4.63-6.08 HEMOGLOBIN (BEAKER) (test kaat=028) 15.7 GM/DL 13.7-17.5 HEMATOCRIT (BEAKER) (test sorb=314) 47.2 % 40.1-51.0 MEAN CORPUSCULAR VOLUME (BEAKER) (test zcml=569) 93.7 fL 79.0-92.2 MEAN CORPUSCULAR HEMOGLOBIN (BEAKER) (test 31.2 pg 25.7-32.2 hajd=334) MEAN CORPUSCULAR HEMOGLOBIN CONC (BEAKER) (test 33.3 GM/DL 32.3-36.5 gglv=057) RED CELL DISTRIBUTION WIDTH (BEAKER) (test 12.4 % 11.6-14.4 dyqx=412) PLATELET COUNT (BEAKER) (test bbwa=721) 221 K/CU MM 150-450 MEAN PLATELET VOLUME (BEAKER) (test uahs=558) 10.5 fL 9.4-12.4 NUCLEATED RED BLOOD CELLS (BEAKER) (test 0 /100 WBC 0-0 iiac=743) [id number] 00:39:00 Test Item Value Reference Range Comments PARTIAL THROMBOPLASTIN TIME (BEAKER) (test 66.0 seconds 22.5-36.0 nakb=001) [id number] 17:41:00 Test Item Value Reference Range Comments PARTIAL THROMBOPLASTIN TIME (BEAKER) (test 57.6 seconds 22.5-36.0 swom=814) PLATELET AGGREGATION: DRUG [id number] 11:12:00 Test Item Value Reference Range Comments STRONG ADP RESULT(BEAKER) (test 23 % 70-94 zznr=0804) WEAK ADP RESULT(BEAKER) (test 31 % 60-91 bnjg=1127) ARACHADONIC ACID RESULT(BEAKER) 13 % 63-89 (test salr=4319) PLATELET AGG DRUG INTERPRETATION Decreased response to (BEAKER) (test nxjm=7777) arachidonic acid suggests aspirin-like effect. PLATELET AGG DRUG INTERPRETATION Decreased response to ADP (BEAKER) (test srrc=782647) suggest a O6J11-pofekzmtm drug effect. [id number] (BEAKER) Sandrine Hickey MD (test pepm=1887) (electronic signature) PLATELET COUNT AGG (BEAKER) 226 K/CU MM 150-450 (test rici=8260) HEMOGLOBIN [id number] 08:29:00 Test Item Value Reference Range Comments HEMOGLOBIN A1C (BEAKER) (test szsz=555) 5.1 % 4.3-6.1 [id number] 04:39:00 Test Item Value Reference Range Comments PHOSPHORUS (BEAKER) (test uawa=669) 3.1 mg/dL 2.3-4.7 BASIC METABOLIC [id number] 04:39:00 Test Item Value Reference Range Comments SODIUM (BEAKER) (test 135 meq/L 136-145 ioac=897) POTASSIUM (BEAKER) (test 4.5 meq/L 3.5-5.1 pifx=683) CHLORIDE (BEAKER) (test 108 meq/L 98-107 gbge=120) CO2 (BEAKER) (test 20 meq/L 22-29 tuol=929) BLOOD UREA NITROGEN 27 mg/dL 7-21 (BEAKER) (test oafi=437) CREATININE (BEAKER) (test 1.26 mg/dL 0.57-1.25 bvfr=344) GLUCOSE RANDOM (BEAKER) 95 mg/dL 70-105 (test vnqk=149) CALCIUM (BEAKER) (test 9.1 mg/dL 8.4-10.2 wzsf=646) EGFR (BEAKER) (test 58 mL/min/1.73 sq m ESTIMATED GFR IS NOT jikg=1801) ACCURATE CREATININE CLEARANCE IN PREDICTING GLOMERULAR FILTRATION RATE. ESTIMATED GFR IS NOT APPLICABLE FOR DIALYSIS PATIENTS. HEPATIC FUNCTION [id number] 04:39:00 Test Item Value Reference Range Comments TOTAL PROTEIN (BEAKER) (test gvhr=395) 7.5 gm/dL 6.0-8.3 ALBUMIN (BEAKER) (test bdad=1603) 3.6 g/dL 3.5-5.0 BILIRUBIN TOTAL (BEAKER) (test wrwc=225) 0.4 mg/dL 0.2-1.2 BILIRUBIN DIRECT (BEAKER) (test othb=436) 0.2 mg/dL 0.1-0.5 ALKALINE PHOSPHATASE (BEAKER) (test yvla=940) 74 U/L 40-150 AST (SGOT) (BEAKER) (test jubf=185) 23 U/L 5-34 ALT (SGPT) (BEAKER) (test qscg=502) 20 U/L 6-55 [id number] 04:33:00 Test Item Value Reference Range Comments PARTIAL THROMBOPLASTIN TIME (BEAKER) (test 50.1 seconds 22.5-36.0 eyrs=679) CBC (HEMOGRAM ONLY)2017-03-22 04:22:00 Test Item Value Reference Range Comments WHITE BLOOD CELL COUNT (BEAKER) (test yizh=590) 7.4 K/ L 3.5-10.5 RED BLOOD CELL COUNT (BEAKER) (test lrjk=323) 5.10 M/ L 4.63-6.08 HEMOGLOBIN (BEAKER) (test medz=462) 16.1 GM/DL 13.7-17.5 HEMATOCRIT (BEAKER) (test osnk=873) 47.8 % 40.1-51.0 MEAN CORPUSCULAR VOLUME (BEAKER) (test hmlp=102) 93.7 fL 79.0-92.2 MEAN CORPUSCULAR HEMOGLOBIN (BEAKER) (test 31.6 pg 25.7-32.2 svlf=810) MEAN CORPUSCULAR HEMOGLOBIN CONC (BEAKER) (test 33.7 GM/DL 32.3-36.5 cyqo=753) RED CELL DISTRIBUTION WIDTH (BEAKER) (test 12.5 % 11.6-14.4 saoh=995) PLATELET COUNT (BEAKER) (test assu=799) 208 K/CU MM 150-450 MEAN PLATELET VOLUME (BEAKER) (test dfgj=126) 10.3 fL 9.4-12.4 NUCLEATED RED BLOOD CELLS (BEAKER) (test 0 /100 WBC 0-0 jjhi=592) TROPONIN [id number] 21:48:00 Test Item Value Reference Range Comments TROPONIN I (BEAKER) (test frbq=193) 0.63 ng/mL 0.00-0.03 Effective 06/25/2014: Reference Range [...] NATRIURETIC PEPTIDE (BEAKER) (test 135 pg/mL 0-100 npyv=205) CREATINE KINASE (CK), TOTAL AND [id number] 21:43:00 Test Item Value Reference Range Comments CREATINE KINASE TOTAL (BEAKER) (test cjgg=253) 52 U/L 29-200 CREATINE KINASE-MB (BEAKER) (test dfmn=201) 1.8 ng/mL 0.0-6.6 CREATINE KINASE-MB INDEX (BEAKER) (test ikre=342) 3.5 % Effective 06/25/2014: CK-MB Reference Range ChangeNew: 0.0-6.6 Previous: 0.0- 4.9CK-MB Reference Range:<6.7 Normal6.7-10.0 Borderline>10.0 [id number] 21:37:00 Test Item Value Reference Range Comments PHOSPHORUS (BEAKER) (test pcpn=202) 3.3 mg/dL 2.3-4.7 [id number] 21:37:00 Test Item Value Reference Range Comments MAGNESIUM (BEAKER) (test qglt=142) 1.8 mg/dL 1.6-2.6 BASIC METABOLIC [id number] 21:37:00 Test Item Value Reference Range Comments SODIUM (BEAKER) (test 136 meq/L 136-145 mani=619) POTASSIUM (BEAKER) (test 4.5 meq/L 3.5-5.1 bass=935) CHLORIDE (BEAKER) (test 105 meq/L 98-107 soey=731) CO2 (BEAKER) (test 24 meq/L 22-29 ymxs=578) BLOOD UREA NITROGEN 25 mg/dL 7-21 (BEAKER) (test frkk=996) CREATININE (BEAKER) (test 1.36 mg/dL 0.57-1.25 brxq=793) GLUCOSE RANDOM (BEAKER) 83 mg/dL 70-105 (test npgx=271) CALCIUM (BEAKER) (test 9.2 mg/dL 8.4-10.2 irvj=322) EGFR (BEAKER) (test 53 mL/min/1.73 sq m ESTIMATED GFR IS NOT bpdg=6864) ACCURATE CREATININE CLEARANCE IN PREDICTING GLOMERULAR FILTRATION RATE. ESTIMATED GFR IS NOT APPLICABLE FOR DIALYSIS PATIENTS. LIPID [id number] 21:37:00 Test Item Value Reference Range Comments TRIGLYCERIDES (BEAKER) (test iyys=611) 289 mg/dL CHOLESTEROL (BEAKER) (test oxor=740) 228 mg/dL HDL CHOLESTEROL (BEAKER) (test hlqy=910) 28 mg/dL LDL CHOLESTEROL CALCULATED (BEAKER) (test 142 mg/dL fugv=471) Triglyceride Reference Range: Low Risk <150 Borderline 150- 199 High Risk 200-499 Very High Risk >=500Cholesterol Reference Range: Low Risk <200 Borderline 200-239 High Risk > 240HDL Cholesterol Reference Range: Low Risk >=60 High Risk <40LDL Cholesterol Reference Range: Optimal <100 Near Optimal 100-129 Borderline 130-159 High 160-189 Very High >=190HEPATIC FUNCTION [id number] 21:37:00 Test Item Value Reference Range Comments TOTAL PROTEIN (BEAKER) (test pyyq=555) 7.5 gm/dL 6.0-8.3 ALBUMIN (BEAKER) (test cske=7213) 3.7 g/dL 3.5-5.0 BILIRUBIN TOTAL (BEAKER) (test wjsa=380) 0.3 mg/dL 0.2-1.2 BILIRUBIN DIRECT (BEAKER) (test jqzb=070) 0.1 mg/dL 0.1-0.5 ALKALINE PHOSPHATASE (BEAKER) (test gmcd=611) 75 U/L 40-150 AST (SGOT) (BEAKER) (test wija=459) 17 U/L 5-34 ALT (SGPT) (BEAKER) (test rvzd=514) 16 U/L 6-55 [id number] 21:31:00 Test Item Value Reference Range Comments PARTIAL THROMBOPLASTIN TIME (BEAKER) (test 37.6 seconds 22.5-36.0 lhtq=726) Prior to initiating heparinCBC (HEMOGRAM ONLY)2017-03-21 21:24:00 Test Item Value Reference Range Comments WHITE BLOOD CELL COUNT (BEAKER) (test zfqh=939) 7.0 K/ L 3.5-10.5 RED BLOOD CELL COUNT (BEAKER) (test lsxy=437) 5.21 M/ L 4.63-6.08 HEMOGLOBIN (BEAKER) (test wgcx=382) 16.1 GM/DL 13.7-17.5 HEMATOCRIT (BEAKER) (test kevp=154) 48.2 % 40.1-51.0 MEAN CORPUSCULAR VOLUME (BEAKER) (test suhx=470) 92.5 fL 79.0-92.2 MEAN CORPUSCULAR HEMOGLOBIN (BEAKER) (test 30.9 pg 25.7-32.2 fcbn=465) MEAN CORPUSCULAR HEMOGLOBIN CONC (BEAKER) (test 33.4 GM/DL 32.3-36.5 gevy=784) RED CELL DISTRIBUTION WIDTH (BEAKER) (test 12.3 % 11.6-14.4 ofxw=144) PLATELET COUNT (BEAKER) (test ncrk=305) 226 K/CU MM 150-450 MEAN PLATELET VOLUME (BEAKER) (test qsfx=801) 10.3 fL 9.4-12.4 NUCLEATED RED BLOOD CELLS (BEAKER) (test 0 /100 WBC 0-0 tsvx=705)
--- OUTSIDE RECORDS SUMMARY | 2019-08-20 21:18 | XMS REPORT | Summary of Care ---
:1950 Author Organization [facility] [place] [address] Care Team Providers Name Role Phone Soham Baker MD Primary Care Provider Reason for Visit Reason Comments Prostate Cancer Consult, Test & Treat (Routine) Status Reason Specialty Diagnoses / Referred By Referred To Contact Procedures Contact Authorized Urology Diagnoses prostate cancer prostate cancer Soham Baker MD Kadmon, Dov, MD Procedures ESTABLISHED OFFICE VISIT [address] [place] [address] [address]LO[address], [address] [place] [address] Phone: Encounter Details Date Type Department Care Team Description 05/25/2019 Office Visit [facility] Dylan Stubbs MD Prostate Cancer Medicine Urology [address] [place] [address] [address] FLO[address], [address], [address] [id number] Allergies Active Allergy Reactions Severity Noted Date Comments Atorvastatin Other (See Comments) High 03/31/2017 Elevated LFTs documented as of this encounter (statuses as of 05/25/2019) Medications Medication Sig Dispensed Refills Start Date End Date Status ciprofloxacin (CIPRO) Take 1 Tab by 6 Tab 0 01/27/2018 Active 500 MG tablet mouth two times daily. Start the day before the procedure amlodipine (NORVASC) 5 TAKE 1 TABLET BY 3 11/08/2017 Active MG tabletIndications: ORAL ROUTE 2 TIMES Elevated prostate EVERY DAY specific antigen (PSA) aspirin EC 81 MG Take 81 mg by 0 Active TBECIndications: mouth. Elevated prostate specific antigen (PSA) metoprolol (TOPROL-XL) TAKE 1 TABLET BY 3 11/20/2017 Active 25 MG XL MOUTH EVERY DAY IN tabletIndications: THE MORNING Elevated prostate specific antigen (PSA) ATORVASTATIN CALCIUM Take by mouth. 0 Active OR documented as of this encounter (statuses as of 05/25/2019) Active Problems Not on filedocumented as of this encounter (statuses as of 05/25/2019) Social History Tobacco Use Types Packs/Day Years Used Date Never Smoker Smokeless Tobacco: Never Used Alcohol Use Drinks/Week oz/Week Comments No Sex Assigned at Date Recorded Not on file Job Start Date Occupation Industry Not on file Not on file Not on file Travel History Travel Start Travel End No recent travel history available. documented as of this encounter Last Filed Vital Signs Not on filedocumented in this encounter Progress Notes Dylan Stubbs MD - 05/25/2019 1:45 PM [id number] - [facility] + PLND, DINAA / Hima Estrada, 2+ / 4+ Path: 34 G prostate GL 3+4, 20% volume Confined, Capsule L1 ( - ) LN's - 0 / 15 ( - ) SV ( - ) [facility] Labs - 08/2018 - PSA < 0.006, T - 420 11/2018 - PSA - < 0.006, T - 373 Recovered most of his bladder control, no pads Rectal - smooth UA - negative dip P: Labs, , FU documented in this encounter Plan of Treatment Health Maintenance Due Date Last Done Comments COLON CANCER SCREENING: COLONOSCOPY 1950 MEDICARE AWV 1950 TETANUS SHOT (ADULT) 1967 BMI FOLLOW UP PLAN 1970 HEPATITIS C SCREENING 1970 FALL SCREEN 2017 PNEUMOVAX >=65 (PPSV23) 2017 PREVNAR >=65 (PCV13) 2017 FLU VACCINE > 6 MONTHS 03/08/2019 documented as of this encounter Results Not on filedocumented in this encounter Visit Diagnoses Diagnosis Prostate cancer (HCCode) - Primary Malignant neoplasm of prostate documented in this encounter Insurance Payer Benefit Plan / Subscriber ID Effective Phone Address Type Group Dates [place] [employer] MEDICARE xxxxxxxxx 2017-[place] [address] [address] Medicare [place] [address] documented as of this encounter
--- NOTE | 2019-08-20 21:47 | ER ---
Nurse's Notes [facility] Name: George Trujillo Age: 68 yrs Sex: Male : 1950 Arrival Date: 08/20/2019 Time: 21:16 Bed 16 Private MD: Diagnosis: Dental caries Presentation: 08/20 21:20 Presenting complaint: Patient states: I broke my tooth Tuesday, I went to the Dr. gauthier today and the pain medication he gave me isn't helping, I just need something to get me through the night. 21:20 Transition of care: patient was not received from another setting of care. Onset of jb4 symptoms was August 18, 2019. Risk Assessment: Do you want to hurt yourself or someone else? Patient reports no desire to harm self or others. Initial Sepsis Screen: Does the patient meet any 2 criteria? No. Patient's initial sepsis screen is negative. Does the patient have a suspected source of infection? No. Patient's initial sepsis screen is negative. Care prior to arrival: None. 21:20 Method Of Arrival: Ambulatory jb4 21:20 Acuity: LORI 4 jb4 Triage Assessment: 21:20 EENT: Reports pain in mouth. jb4 Historical: - Allergies: 21:20 No Known Allergies; jb4 - Home Meds: 21:20 atorvastatin 80 mg oral tab 1 tab once daily [Active]; Tylenol #3 Oral [Active]; jb4 amlodipine 5 mg tab 1 tab twice a day [Active]; carvedilol 6.25 mg oral tab 1 tab 2 times per day [Active]; amoxicillin 500 mg Oral cap 1 cap every 8 hours [Active]; - PMHx: 21:20 CAD; Hyperlipidemia; Hypertension; Prostate Cancer; High Cholesterol; jb4 - PSHx: 21:20 CABG; Knee surgery; shoulder; prostectomy; jb4 - Immunization history:: Adult Immunizations up to date. - Social history:: Smoking status: Patient/guardian denies using tobacco, Patient uses alcohol, but reports only rare drinking. - Ebola Screening: : No symptoms or risks identified at this time. Screenin:20 Abuse screen: Denies threats or abuse. Nutritional screening: No deficits noted. jb4 Tuberculosis screening: No symptoms or risk factors identified. Fall Risk None identified. Assessment: 21:20 General: Appears in no apparent distress. uncomfortable, Behavior is calm, cooperative, jb4 appropriate for age. Pain: Complains of pain in mouth Pain does not radiate. Pain currently is 9 out of 10 on a pain scale. Neuro: Level of Consciousness is awake, alert, obeys commands, Oriented to person, place, time, situation. Cardiovascular: Patient's skin is warm and dry. Respiratory: Airway is patent Respiratory effort is even, unlabored, Respiratory pattern is regular, symmetrical. GI: No signs and/or symptoms were reported involving the gastrointestinal system. : No signs and/or symptoms were reported regarding the genitourinary system. EENT: Poor dentition noted. Derm: Skin is intact, Skin is pink, warm \T\ dry. Musculoskeletal: Circulation, motion, and sensation intact. Range of motion: intact in all extremities. 22:12 Reassessment: Patient appears in no apparent distress at this time. Patient and/or jb4 family updated on plan of care and expected duration. Pain level reassessed. Patient is alert, oriented x 3, equal unlabored respirations, skin warm/dry/pink. PT discharged home with , verbalized understanding of d/c and follow up instructions. Pt vomited after morphine administration. Refused further medications. Vital Signs: 21:20 BP 193 / 98; Pulse 76; Resp 16; Temp 99.8(O); Pulse Ox 97% on R/A; Weight 81.65 kg (R); jb4 Height 5 ft. 8 in. (172.72 cm) (R); Pain 9/10; 22:12 BP 167 / 78; Pulse 82; Resp 18; Pulse Ox 100% on R/A; jb4 21:20 Body Mass Index 27.37 (81.65 kg, 172.72 cm) jb4 ED Course: 21:16 Patient arrived in ED. cl3 21:19 Karolina Mcdermott MD is Attending Physician. ma2 21:20 Arm band placed on right wrist. jb4 21:20 Patient has correct armband on for positive identification. Bed in low position. Call jb4 light in reach. Pulse ox on. NIBP on. 21:20 No provider procedures requiring assistance completed. jb4 21:35 Jaydon Cassidy RN is Primary Nurse. jb4 21:37 Triage completed. jb4 22:12 Patient did not have IV access during this emergency room visit. jb4 Administered Medications: 21:48 Not Given (Other Intervention Used): morphine 4 mg IVP once; RASS on ADMIN: Combtv4, jb4 Very Agttd3, Agttd2, Rstlss1, AlertClm0, Drwsy-1, Lt Sdtn-2, Mod Sdtn-3, Dp Sdtn-4, UnArsble-5 21:51 Drug: Zofran 4 mg Route: PO; jb4 22:11 Follow up: Response: No adverse reaction jb4 21:51 Drug: morphine 4 mg {Note: Rass score 0.} Route: IM; Site: left gluteus; jb4 22:11 Follow up: Response: No adverse reaction; Pain is decreased; RASS: Alert and Calm (0) jb4 Outcome: 21:46 Discharge ordered by . victor manuel 22:12 Discharged to home ambulatory, with significant other. jb4 22:12 Condition: stable 22:12 Discharge instructions given to patient, significant other, Instructed on discharge instructions, follow up and referral plans. medication usage, Demonstrated understanding of instructions, follow-up care, medications, Prescriptions given X 1. 22:16 Patient left the ED. jb4 Signatures: Jaydon Cassidy RN RN jb4 Karolina Mcdermott MD MD ma2 Coby More cl3
--- NOTE | 2019-08-20 21:47 | EDPHYS ---
Physician Documentation [facility] Name: George Trujillo Age: 68 yrs Sex: Male : 1950 Arrival Date: 08/20/2019 Time: 21:16 Bed 16 Private MD: ED Physician Karolina Mcdermott HPI: 08/20 21:45 This 68 yrs old Male presents to ER via Ambulatory with complaints of ma2 Toothache. 21:45 The patient presents with pain. Onset: The symptoms/episode began/occurred gradually, 2 ma2 hour(s) ago. Associated signs and symptoms: Pertinent negatives: dysphagia, inability to eat. Historical: - Allergies: 21:20 No Known Allergies; jb4 - Home Meds: 21:20 atorvastatin 80 mg oral tab 1 tab once daily [Active]; Tylenol #3 Oral [Active]; jb4 amlodipine 5 mg tab 1 tab twice a day [Active]; carvedilol 6.25 mg oral tab 1 tab 2 times per day [Active]; amoxicillin 500 mg Oral cap 1 cap every 8 hours [Active]; - PMHx: 21:20 CAD; Hyperlipidemia; Hypertension; Prostate Cancer; High Cholesterol; jb4 - PSHx: 21:20 CABG; Knee surgery; shoulder; prostectomy; jb4 - Immunization history:: Adult Immunizations up to date. - Social history:: Smoking status: Patient/guardian denies using tobacco, Patient uses alcohol, but reports only rare drinking. - Ebola Screening: : No symptoms or risks identified at this time. ROS: 21:45 Constitutional: Negative for fever, chills, and weight loss. ma2 21:45 All other systems are negative. Exam: 21:45 Constitutional: This is a well developed, well nourished patient who is awake, alert, ma2 and in no acute distress. Head/Face: Normocephalic, atraumatic. Eyes: Pupils equal round and reactive to light, extra-ocular motions intact. Lids and lashes normal. Conjunctiva and sclera are non-icteric and not injected. Cornea within normal limits. Periorbital areas with no swelling, redness, or edema. ENT: Nares patent. No nasal discharge, no septal abnormalities noted. Tympanic membranes are normal and external auditory canals are clear. Oropharynx with no redness, swelling, or masses, exudates, or evidence of obstruction, uvula midline. Mucous membranes moist. Neck: Trachea midline, no thyromegaly or masses palpated, and no cervical lymphadenopathy. Supple, full range of motion without nuchal rigidity, or vertebral point tenderness. No Meningismus. Chest/axilla: Normal chest wall appearance and motion. Nontender with no deformity. No lesions are appreciated. Cardiovascular: Regular rate and rhythm with a normal S1 and S2. No gallops, murmurs, or rubs. Normal PMI, no JVD. No pulse deficits. Respiratory: Lungs have equal breath sounds bilaterally, clear to auscultation and percussion. No rales, rhonchi or wheezes noted. No increased work of breathing, no retractions or nasal flaring. Abdomen/GI: Soft, non-tender, with normal bowel sounds. No distension or tympany. No guarding or rebound. No evidence of tenderness throughout. Vital Signs: 21:20 BP 193 / 98; Pulse 76; Resp 16; Temp 99.8(O); Pulse Ox 97% on R/A; Weight 81.65 kg (R); jb4 Height 5 ft. 8 in. (172.72 cm) (R); Pain 9/10; 22:12 BP 167 / 78; Pulse 82; Resp 18; Pulse Ox 100% on R/A; jb4 21:20 Body Mass Index 27.37 (81.65 kg, 172.72 cm) jb4 MDM: 21:19 Patient medically screened. ma2 21:45 Differential diagnosis: dental caries, gingivitis, pericoronitis, gingivostomatitis. ma2 Data reviewed: vital signs, nurses notes. Counseling: I had a detailed discussion with the patient and/or guardian regarding: the historical points, exam findings, and any diagnostic results supporting the discharge/admit diagnosis, the presence of at least one elevated blood pressure reading (>120/80) during this emergency department visit, the need for outpatient follow up. Response to treatment: the patient's symptoms have markedly improved after treatment. Administered Medications: 21:48 Not Given (Other Intervention Used): morphine 4 mg IVP once; RASS on ADMIN: Combtv4, jb4 Very Agttd3, Agttd2, Rstlss1, AlertClm0, Drwsy-1, Lt Sdtn-2, Mod Sdtn-3, Dp Sdtn-4, UnArsble-5 21:51 Drug: Zofran 4 mg Route: PO; jb4 22:11 Follow up: Response: No adverse reaction jb4 21:51 Drug: morphine 4 mg {Note: Rass score 0.} Route: IM; Site: left gluteus; jb4 22:11 Follow up: Response: No adverse reaction; Pain is decreased; RASS: Alert and Calm (0) [facility], [place] Disposition: 08/20/19 21:46 Discharged to Home. Impression: Dental caries. - Condition is Stable. - Discharge Instructions: Dental Pain. - Prescriptions for Tramadol 50 mg Oral Tablet - take 1 tablet by ORAL route every 8 hours as needed; 12 tablet. - Medication Reconciliation Form, Thank You Letter, Antibiotic Education, Prescription Opioid Use form. - Follow up: Private Physician; When: Tomorrow; Reason: Continuance of care. Signatures: Jaydon Cassidy RN RN jb4 Karolina Mcdermott MD MD ma2 Corrections: (The following items were deleted from the chart) 22:16 21:46 08/20/2019 21:46 Discharged to Home. Impression: Dental caries. Condition is jb4 Stable. Forms are Medication Reconciliation Form, Thank You Letter, Antibiotic Education, Prescription Opioid Use. Follow up: Private Physician; When: Tomorrow; Reason: Continuance of care. ma2
[2019-08-20] MEDS ORDERED: ONDANSETRON 4 MG (ODT) TAB ONE (21:48)
[2019-08-20] MEDS ORDERED: MORPHINE 4 MG/ML SYR ONE (21:48)
[2019-08-20 22:53] VITALS: TEMP 99.8
[2019-08-20 22:54] VITALS: BP 167/78; O2SAT 100
== END 2019-08-20 22:16 | disposition home or self-care (01) ==
LOC: ER 21:13
DX: K02.9 Dental caries, unspecified (principal); I10 Essential (primary) hypertension; E78.5 Hyperlipidemia, unspecified; Z85.46 Personal history of malignant neoplasm of prostate; Z95.1 Presence of aortocoronary bypass graft
CPT/HCPCS: 96372; 99283

== ENCOUNTER 2019-11-26 10:00 | Emergency (ER) | payer MEDICARE ==
--- OUTSIDE RECORDS SUMMARY | 2019-11-26 10:09 | XMS REPORT ---
:1950 Author Organization [facility] t Address [address] [place] [address] Dr. Huang [address] [place] [id number] Care Team Providers Name Role Phone DREW Unavailable Unavailable CATHIE Unavailable Unavailable JEROME Unavailable Unavailable Problems This patient has no known problems. Allergies, Adverse Reactions, Alerts This patient has no known allergies or adverse reactions. Medications This patient has no known medications. Results Test Description Test Time Test Comments Text Results Atomic Results Result Comments TISSUE EXAM 2018-05-24 11:25:00 Surgical Pathology Re port Case: [id number] Authorizing Provider: Dylan Mayo MD Collected: [id number] Ordering Location: [facility] PERIOPERATIVE Received: 018 1002 SERVICE S Pathologist: Yolanda kaufman, Osvaldo Pérez MD Specimens: A) - Lymph Node , Right External Iliac Lymph Node - Gross Exa m, Frozen If Indicated B) - Lymph Node, Right Obturator Lymph Node - Gross Exam, Frozen If Indicated C) - Soft Tissue, Other, right hypogastric lym ph node- gross exam and frozen if indicated D) - Vas Deferens, Left E) - Soft Tissue, Other, left external iliac l ymph node for gross exam, frozen if indicated F) - Soft Tissue, Other, left obturator for gr oss exam, frozen if indicated G) - Lymph Node, right obturator lymph node H) - Lymph Node, Carmen-Prostatic Lymph Node I) - Prostate, Prostate and seminal vesicle s A. LYMPH NODES, RIGHT EXTERNAL ILIAC, DISSECTION: - FOUR BENIGN LYMPH NODES (0/4)B. LYMPH NODES, R IGHT OBTURATOR, DISSECTION: - TWO BENIGN L YMPH NODES (0/2)C. LYMPH NODES, RIGHT HYPOGASTR IC, DISSECTION: - SIX BENIGN LYMPH NODES (0/6) D. VAS DEFERENS, LEFT, RESECTION: - NO PATH OLOGIC DIAGNOSISE. LYMPH NODE, LEFT EXTERNAL IL IAC, EXCISION: - ONE BENIGN LYMPH NODE (0/1)F . LYMPH NODES, LEFT OBTURATOR, DISSECTION: - T WO BENIGN LYMPH NODES (0/2)G. SOFT TISSUE, "RIGHT OBTURATOR LYMPH NODE", EXCISION: - BENIGN FIBROADIPOSE TISSUE, NO LYMPH NODES PRESENTH. SOF T TISSUE, "CARMEN-PROSTATIC LYMPH NODE", EXCISION: - BENIGN FIBROADIPOSE TISSUE, NO LYMP H NODES PRESENTI. 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 All tumors are confined to the p rostate but the tumor in the leftt peripheral show s invasion into but not the capsule. PROSTATE GLAND: Radical Prostatectomy (Prostate Res - All Specimens)SPECIMEN Procedu re: Radical prostatectomy Prostate Si ze: Prostate Weight (g): 34.2 g Pr ostate Greatest Dimension in Centimeters (cm ): 3.6 Centimeters (cm) Additional Dimensio n in Centimeters (cm): 3.5 Centimeters (cm ) Additional Dimension in Centimeters (cm ): 2.6 Centimeters (cm)TUMOR Histologic Type: Acinar adenocarcinoma Histologic Grade: Leonard Pattern: P rimary Bristol Pattern: Pattern 3 Secondary Leonard Pattern: Pattern 4 Tertiary Bristol Pattern: Not applicable Total Leonard Score: 7 Grade Rose up: 2 Intraductal Carcinoma (IDC): Not identified Tumor Extent: Tumor Quantitation: Estimated percentage of pros lee involved by tumor: 20 % Extraprostat ic Extension (EPE): Not identified Urinary Bladder Neck Invasion: Not identified Seminal Vesicle Invasion: Not identified Accessory Findings: Treatment Effect: No known presurgical therapy Lym phovascular Invasion: Not Identified Perin eural Invasion: Present MARGINS Margins: Uninvolved by invasive carcinoma : Benign prostate glands present at surgical m argin LYMPH NODES Number of Lymph Nodes Involv ed: 0 Number of Lymph Nodes Examined: 15 PATHOLOGIC STAGE CLASSIFICATION (pTNM, AJCC 8 th Edition) TNM Descriptors: Not applicab le Primary Tumor (pT): pT2 Regional Lym ph Nodes (pN): pN0 Distant Metastasis (pM): Not applicable - pM cannot be determined from the submitted specimen(s) ADDITIONAL FINDI NGS Additional Pathologic Findings: Nodu lar prostatic hyperplasia A. 57913, 14533S . 81118, 33292U. 80977, 06107P. 22889I. 48111 , 89027F. 47816, 50265Z. 95775K. 41997W. 8830 9Procedure cancerA. Right external iliac lymph n ode. B. Right obturator lymph node. C. Rig ht hypogastric lymphnode. D. Left vas defer ens. E. Left external iliac lymph node. F. Left ob turator. G. Right obturator lymph node. H. Per iprostatic lymph node. I. Prostate and semina l vesicle.A. The specimen is received fresh l abeled "lymph node" is a 5 x 2.5 x 0.5 cm desouza-pi nk soft tissue. The specimen consists with four lymph nodes measuring 1 x 1 x 0.5 cm each. The spe cimen is submitted in cassettes as follows:A1: Lym ph node, bisected, submitted for frozen and luis ch prep.A2: Two lymph nodes, one green and one red , bisected.A3: Lymph node, bisected.A4: Remainder of the specimen.B. The specimen is received [facility] labeled "lymph node" is a 7 x 1 x 0.5 cm ta n-pink soft tissue consists with two lymph node s measuring 1.5 cm and 0.5 cm. The specimen is submitted as follows:B1: 1.5 cm lymph nod e, bisected and submitted entirely for froze n and touch prep.B2: 0.3 cm lymph node, bisected and submitted entirely.C. The specimen is received fresh labeled "soft tissue" is a 6 x 2 x 0.5 cm desouza-pink soft tissue consist ent with four lymph nodes measuring from 1.5 cm in greatest dimension to 0.8 cm. The specimen is s ubmitted as follows:C1FS and C3: Two bis ected lymph nodes (one half of each lymph node frozen in C1FS)C2FS and C4: Two bisected lymph n odes (one half of each lymph node frozen in C2 FS)C5: Remainder of the specimen. WM/ew D: Label ed "left vas deferens" consists of a segm ent of off-white tubular shaped soft tissue m easuring 1.7 cm in length x 0.3 cm in diameter. No suspicious areas are seen grossly. The specim en is sectioned and submitted entirely in D1. CG /ewE. The specimen is received fresh labeled "soft tissue" consists of two pieces of soft tissue me asuring 1 x 1 x 0.5 cm and 2 x 1 x 0.5 cm. The s oft tissue is consistent with one lymph no de measuring 2 x 0.5 x 0.3 cm. The specimen is stevenson bmitted as follows: The lymph node is bisected a nd half of it is submitted for frozen in E1 a nd submitted for permanent in E2. E3: Remaind er of the specimen.F. The specimen is received loly labeled "soft tissue" is a 4 x 3 x 0.5 cm desouza-pink soft tissue. The specimen is consists wit h one lymph node measuring 2 x 1 x 0.5 cm. Th e specimen is submitted as follows, the ly mph node is bisected and submitted as follows: F1 for frozen section and F2 for permanent, F3 is the remainder of the specimen. WM/ewG. Labeled "r ight obturator lymph node" consists of adipose ti ssue measuring 1.5 x 1 x 0.5 cm. Grossly no lymph node tissue is palpated or seen. The adipos e tissue is entirely submitted in G1.H. Labeled " periprostatic lymph node" consists of adipose ti ssue measuring 4 x 2.5 x 1 cm in aggregate yiel ding no grossly apparent lymph node tissue. The adipose tissue is entirely submitted in H1 thr ough H4. CG/ewI. Received in formalin labeled with the patient's name (Rica Trujillo) i s a prostate with bilateral seminal vesicles a nd vas deferentia.The prostate weighs 34.2 gm and measures 3.5 cm apex to base, 3.6 cm transversely and 2.6 cm anterior to posterior. The right and left seminal vesicles measure 2.7 x 1.2 x 0.5 cm a nd 2.5 x 1.5 x 0.5 cm respectively.The right and l eft vasa deferentia measure 4.0 cm and 4.0 cm in length respectively and 0.5 cm in diameter. The capsular surface of the prostate is purple-desouza t o red, dusky, and focally ragged. Ink code: Ri ght-black, left-blue. The prostate is serially sec tioned from apex to base in entirety. The total number of slices including seminal vesicles a nd vas deferentia are 10.The sections of the prost ate reveal pink-desouza to peralta-white, homogeneous, focally nodular prostatic parenchyma through out. No discrete masses are identified.The se ctioning of the seminal vesicles reveals a p ink-desouza unremarkable cut surface. Section code: A pical margins are submitted in cassette I1, bl adder neck margins are submitted in cassette I2 . The prostate slices are submitted in cassette I3 through I8. The right and left seminal vesic les at the base of the prostate are submitted i n cassette I9, seminal vesicle tips along w ith vas deferentia are submitted in cassette I1 0. SDH/Loan-I. Performed. CREATININE, BODY FLUID 2018-05-20 09:11:00 Test Item Value Reference Range Comments CREATININE FLUID (BEAKER) (test code = 677) 0.91 mg/dL Reference Range: No Normals Assay performance has not been validated for this type of specimen.BASIC METABOLIC [id number] 06:46:00 Test Item Value Reference Range Comments SODIUM (BEAKER) (test 131 meq/L 136-145 code = 381) POTASSIUM (BEAKER) (test 3.9 meq/L 3.5-5.1 code = 379) CHLORIDE (BEAKER) (test 103 meq/L 98-107 code = 382) CO2 (BEAKER) (test code = 22 meq/L 22-29 355) BLOOD UREA NITROGEN 20 mg/dL 7-21 (BEAKER) (test code = 354) CREATININE (BEAKER) (test 1.06 mg/dL 0.57-1.25 code = 358) GLUCOSE RANDOM (BEAKER) 95 mg/dL 70-105 (test code = 652) CALCIUM (BEAKER) (test 8.3 mg/dL 8.4-10.2 code = 697) EGFR (BEAKER) (test code 70 mL/min/1.73 sq m EST IMATED GFR IS NOT = 1092) ACCURATE CREA TININE CLEARANCE IN PRE DICTING GLOMERULAR FILTR ATION RATE. ESTIMATED GFR IS NOT APPLICABLE F OR DIALYSIS PATIENT S. HEMOGLOBIN AND [id number] 06:04:00 Test Item Value Reference Range Comments HEMOGLOBIN (BEAKER) (test code = 410) 14.4 GM/DL 13.7-17.5 HEMATOCRIT (BEAKER) (test code = 411) 44.1 % 40.1-51.0 BASIC METABOLIC [id number] 04:47:00 Test Item Value Reference Range Comments SODIUM (BEAKER) (test 138 meq/L 136-145 code = 381) POTASSIUM (BEAKER) (test 4.4 meq/L 3.5-5.1 code = 379) CHLORIDE (BEAKER) (test 108 meq/L 98-107 code = 382) CO2 (BEAKER) (test code = 22 meq/L 22-29 355) BLOOD UREA NITROGEN 23 mg/dL 7-21 (BEAKER) (test code = 354) CREATININE (BEAKER) (test 1.29 mg/dL 0.57-1.25 code = 358) GLUCOSE RANDOM (BEAKER) 105 mg/dL 70-105 (test code = 652) CALCIUM (BEAKER) (test 8.2 mg/dL 8.4-10.2 code = 697) EGFR (BEAKER) (test code 56 mL/min/1.73 sq m EST IMATED GFR IS NOT = 1092) ACCURATE CREA TININE CLEARANCE IN PRE DICTING GLOMERULAR FILTR ATION RATE. ESTIMATED GFR IS NOT APPLICABLE F OR DIALYSIS PATIENT S. HEMOGLOBIN AND [id number] 04:22:00 Test Item Value Reference Range Comments HEMOGLOBIN (BEAKER) (test code = 410) 14.1 GM/DL 13.7-17.5 HEMATOCRIT (BEAKER) (test code = 411) 43.0 % 40.1-51.0 BASIC METABOLIC [id number] 14:47:00 Test Item Value Reference Range Comments SODIUM (BEAKER) (test 137 meq/L 136-145 code = 381) POTASSIUM (BEAKER) (test 5.1 meq/L 3.5-5.1 code = 379) CHLORIDE (BEAKER) (test 108 meq/L 98-107 code = 382) CO2 (BEAKER) (test code = 24 meq/L 22-29 355) BLOOD UREA NITROGEN 27 mg/dL 7-21 (BEAKER) (test code = 354) CREATININE (BEAKER) (test 1.44 mg/dL 0.57-1.25 code = 358) GLUCOSE RANDOM (BEAKER) 125 mg/dL 70-105 (test code = 652) CALCIUM (BEAKER) (test 7.9 mg/dL 8.4-10.2 code = 697) EGFR (BEAKER) (test code 49 mL/min/1.73 sq m EST IMATED GFR IS NOT = 1092) ACCURATE CREA TININE CLEARANCE IN PRE DICTING GLOMERULAR FILTR ATION RATE. ESTIMATED GFR IS NOT APPLICABLE F OR DIALYSIS PATIENT S. HEMOGLOBIN AND [id number] 14:03:00 Test Item Value Reference Range Comments HEMOGLOBIN (BEAKER) (test code = 410) 14.4 GM/DL 13.7-17.5 HEMATOCRIT (BEAKER) (test code = 411) 43.8 % 40.1-51.0 URINE [id number] 15:18:00 Test Item Value Reference Range Comments CULTURE (BEAKER) (test code = <10,000 col/mL skin clare 1095) COMPREHENSIVE METABOLIC [id number] 14:47:00 Test Item Value Reference Range Comments TOTAL PROTEIN (BEAKER) 8.1 gm/dL 6.0-8.3 Specimen slightly (test code = 770) hemolyzed ALBUMIN (BEAKER) (test 4.2 g/dL 3.5-5.0 Specimen slightly code = 1145) hemolyzed ALKALINE PHOSPHATASE 112 U/L 40-150 (BEAKER) (test code = 346) BILIRUBIN TOTAL (BEAKER) 0.4 mg/dL 0.2-1.2 Specime n slightly (test code = 377) hemolyzed SODIUM (BEAKER) (test code 138 meq/L 136-145 = 381) POTASSIUM (BEAKER) (test 4.6 meq/L 3.5-5.1 Specime n slightly code = 379) hemolyzed CHLORIDE (BEAKER) (test 105 meq/L 98-107 code = 382) CO2 (BEAKER) (test code = 27 meq/L 22-29 355) BLOOD UREA NITROGEN 24 mg/dL 7-21 (BEAKER) (test code = 354) CREATININE (BEAKER) (test 1.32 mg/dL 0.57-1.25 Specim en slightly code = 358) hemolyzed GLUCOSE RANDOM (BEAKER) 71 mg/dL 70-105 (test code = 652) CALCIUM (BEAKER) (test 9.7 mg/dL 8.4-10.2 code = 697) AST (SGOT) (BEAKER) (test 18 U/L 5-34 Specim en slightly code = 353) hemolyzed ALT (SGPT) (BEAKER) (test 18 U/L 6-55 Specim en slightly code = 347) hemolyzed EGFR (BEAKER) (test code = 54 mL/min/1.73 sq m E STIMATED GFR IS NOT 1092) ACCURATE CREA TININE CLEARANCE IN PRE DICTING GLOMERULAR FILTR ATION RATE. ESTIMATED GFR IS NOT APPLICABLE F OR DIALYSIS PATIENT S. CBC W/PLT COUNT & AUTO [id number] 14:28:00 Test Item Value Reference Range Comments WHITE BLOOD CELL COUNT (BEAKER) (test code = 5.3 K/ L 3.5 -10.5 775) RED BLOOD CELL COUNT (BEAKER) (test code = 761) 5.14 M/ L 4.63-6.08 HEMOGLOBIN (BEAKER) (test code = 410) 15.8 GM/DL 13.7-17.5 HEMATOCRIT (BEAKER) (test code = 411) 48.2 % 40.1-51.0 MEAN CORPUSCULAR VOLUME (BEAKER) (test code = 93.8 fL 79 .0-92.2 753) MEAN CORPUSCULAR HEMOGLOBIN (BEAKER) (test code 30.7 pg 25.7-32.2 = 751) MEAN CORPUSCULAR HEMOGLOBIN CONC (BEAKER) (test 32.8 GM/DL 32.3-36.5 code = 752) RED CELL DISTRIBUTION WIDTH (BEAKER) (test code 12.3 % 11.6-14.4 = 412) PLATELET COUNT (BEAKER) (test code = 756) 223 K/CU MM 150-45 0 MEAN PLATELET VOLUME (BEAKER) (test code = 754) 10.3 fL 9.4-12.4 NUCLEATED RED BLOOD CELLS (BEAKER) (test code = 0 /100 WBC 0-0 413) NEUTROPHILS RELATIVE PERCENT (BEAKER) (test code 55 % = 429) LYMPHOCYTES RELATIVE PERCENT (BEAKER) (test code 24 % = 430) MONOCYTES RELATIVE PERCENT (BEAKER) (test code = 11 % 431) EOSINOPHILS RELATIVE PERCENT (BEAKER) (test code 9 % = 432) BASOPHILS RELATIVE PERCENT (BEAKER) (test code = 1 % 437) NEUTROPHILS ABSOLUTE COUNT (BEAKER) (test code = 2.87 K/ L 1.78-5.38 670) LYMPHOCYTES ABSOLUTE COUNT (BEAKER) (test code = 1.28 K/ L 1.32-3.57 414) MONOCYTES ABSOLUTE COUNT (BEAKER) (test code = 0.56 K/ L 0 .30-0.82 415) EOSINOPHILS ABSOLUTE COUNT (BEAKER) (test code = 0.48 K/ L 0.04-0.54 416) BASOPHILS ABSOLUTE COUNT (BEAKER) (test code = 0.07 K/ L 0 .01-0.08 417) IMMATURE GRANULOCYTES-RELATIVE PERCENT (BEAKER) 0 % 0-1 (test code = 2801) PROTHROMBIN [id number] 14:23:00 Test Item Value Reference Range Comments PROTIME (BEAKER) (test code = 759) 14.5 seconds 11.7-14.7 INR (BEAKER) (test code = 370) 1.1 <=5.9 RECOMMENDED COUMADIN/WARFARIN INR THERAPY RANGESSTANDARD DOSE: 2.0 - 3.0 Includes: PROPHYLAXIS forvenous thrombosis, systemic embolization; TREATMENT for venous thrombosis and/or pulmonary embolus.HIGH RISK: Target INR is 2.5-3.5 for patients with mechanical heart valves.[id number] 14:23:00 Test Item Value Reference Range Comments PARTIAL THROMBOPLASTIN TIME (BEAKER) (test code 33.7 seconds 22.5-36.0 = 760) [id number] 14:13:00 Test Item Value Reference Range Comments MAGNESIUM (BEAKER) (test code = 627) 2.1 mg/dL 1.6-2.6 BASIC METABOLIC [id number] 14:13:00 Test Item Value Reference Range Comments SODIUM (BEAKER) (test 138 meq/L 136-145 code = 381) POTASSIUM (BEAKER) (test 5.3 meq/L 3.5-5.1 code = 379) CHLORIDE (BEAKER) (test 103 meq/L 98-107 code = 382) CO2 (BEAKER) (test code = 26 meq/L 22-29 355) BLOOD UREA NITROGEN 31 mg/dL 7-21 (BEAKER) (test code = 354) CREATININE (BEAKER) (test 1.48 mg/dL 0.57-1.25 code = 358) GLUCOSE RANDOM (BEAKER) 88 mg/dL 70-105 (test code = 652) CALCIUM (BEAKER) (test 10.3 mg/dL 8.4-10.2 code = 697) EGFR (BEAKER) (test code 48 mL/min/1.73 sq m EST IMATED GFR IS NOT = 1092) ACCURATE CREA TININE CLEARANCE IN PRE DICTING GLOMERULAR FILTR ATION RATE. ESTIMATED GFR IS NOT APPLICABLE F OR DIALYSIS PATIENT S. B-TYPE NATRIURETIC FACTOR (BNP)2017-04-15 13:56:00 Test Item Value Reference Range Comments B-TYPE NATRIURETIC PEPTIDE (BEAKER) (test code = 430 pg/mL 0-100 700) TISSUE [id number] 10:36:00Surgical Pathology Report Case: [id number] Authorizing Provider: Balwinder Amanda MD Collected: 03/28/2017 1639 Ordering Location: [facility] Received: 03/29/2017 0937 PERIOPERATIVE SERVICES Pathologist: Harrison Mosqueda MD Specimen: Plaque, RIGHT CAROTID PLAQUE ARTERY, RIGHT CAROTID, ATHERECTOMY:CALCIFIC ATHEROSCLEROTIC PLAQUE Signing Pathologist Direct Phone Line: [phone] signed by Harrison Mosqueda MD on 04/08/2017 at 10:36 [id number]; [id number] carotid plaqueThe specimen is received in saline labeled with the patient's information labeled "right carotid plaque" and consists of two tubular-shaped segment of calcified tissues ranging only from 2 to 3 cm in radial diameter, from 0.5 to 0.8 cm. Doorperson sections submitted A1 for decalcification. CG/pl PerformedCOMPREHENSIVE METABOLIC PANEL 2017-04-02 05:36:00 Test Item Value Reference Range Comments TOTAL PROTEIN (BEAKER) 7.5 gm/dL 6.0-8.3 (test code = 770) ALBUMIN (BEAKER) (test 3.8 g/dL 3.5-5.0 code = 1145) ALKALINE PHOSPHATASE 306 U/L 40-150 (BEAKER) (test code = 346) BILIRUBIN TOTAL (BEAKER) 0.9 mg/dL 0.2-1.2 (test code = 377) SODIUM (BEAKER) (test code 135 meq/L 136-145 = 381) POTASSIUM (BEAKER) (test 4.2 meq/L 3.5-5.1 code = 379) CHLORIDE (BEAKER) (test 96 meq/L 98-107 code = 382) CO2 (BEAKER) (test code = 28 meq/L 22-29 355) BLOOD UREA NITROGEN 30 mg/dL 7-21 (BEAKER) (test code = 354) CREATININE (BEAKER) (test 1.25 mg/dL 0.57-1.25 code = 358) GLUCOSE RANDOM (BEAKER) 93 mg/dL 70-105 (test code = 652) CALCIUM (BEAKER) (test 9.3 mg/dL 8.4-10.2 code = 697) AST (SGOT) (BEAKER) (test 70 U/L 5-34 code = 353) ALT (SGPT) (BEAKER) (test 75 U/L 6-55 code = 347) EGFR (BEAKER) (test code = 58 mL/min/1.73 sq m E STIMATED GFR IS NOT 1092) ACCURATE CREA TININE CLEARANCE IN PRE DICTING GLOMERULAR FILTR ATION RATE. ESTIMATED GFR IS NOT APPLICABLE F OR DIALYSIS PATIENT S. HEPATIC FUNCTION [id number] 05:35:00 Test Item Value Reference Range Comments TOTAL PROTEIN (BEAKER) (test code = 770) 7.4 gm/dL 6.0-8.3 ALBUMIN (BEAKER) (test code = 1145) 3.8 g/dL 3.5-5.0 BILIRUBIN TOTAL (BEAKER) (test code = 377) 1.0 mg/dL 0.2-1 .2 BILIRUBIN DIRECT (BEAKER) (test code = 706) 0.6 mg/dL 0.1- 0.5 ALKALINE PHOSPHATASE (BEAKER) (test code = 346) 307 U/L 40-150 AST (SGOT) (BEAKER) (test code = 353) 72 U/L 5-34 ALT (SGPT) (BEAKER) (test code = 347) 74 U/L 6-55 CBC W/PLT COUNT & AUTO [id number] 05:21:00 Test Item Value Reference Range Comments WHITE BLOOD CELL COUNT (BEAKER) (test code = 6.2 K/ L 3.5 -10.5 775) RED BLOOD CELL COUNT (BEAKER) (test code = 761) 3.16 M/ L 4.63-6.08 HEMOGLOBIN (BEAKER) (test code = 410) 9.9 GM/DL 13.7-17.5 HEMATOCRIT (BEAKER) (test code = 411) 29.8 % 40.1-51.0 MEAN CORPUSCULAR VOLUME (BEAKER) (test code = 94.3 fL 79 .0-92.2 753) MEAN CORPUSCULAR HEMOGLOBIN (BEAKER) (test code 31.3 pg 25.7-32.2 = 751) MEAN CORPUSCULAR HEMOGLOBIN CONC (BEAKER) (test 33.2 GM/DL 32.3-36.5 code = 752) RED CELL DISTRIBUTION WIDTH (BEAKER) (test code 12.2 % 11.6-14.4 = 412) PLATELET COUNT (BEAKER) (test code = 756) 292 K/CU MM 150-45 0 MEAN PLATELET VOLUME (BEAKER) (test code = 754) 9.9 fL 9.4-12.4 NUCLEATED RED BLOOD CELLS (BEAKER) (test code = 0 /100 WBC 0-0 413) NEUTROPHILS RELATIVE PERCENT (BEAKER) (test code 75 % = 429) LYMPHOCYTES RELATIVE PERCENT (BEAKER) (test code 12 % = 430) MONOCYTES RELATIVE PERCENT (BEAKER) (test code = 9 % 431) EOSINOPHILS RELATIVE PERCENT (BEAKER) (test code 3 % = 432) BASOPHILS RELATIVE PERCENT (BEAKER) (test code = 0 % 437) NEUTROPHILS ABSOLUTE COUNT (BEAKER) (test code = 4.69 K/ L 1.78-5.38 670) LYMPHOCYTES ABSOLUTE COUNT (BEAKER) (test code = 0.73 K/ L 1.32-3.57 414) MONOCYTES ABSOLUTE COUNT (BEAKER) (test code = 0.55 K/ L 0 .30-0.82 415) EOSINOPHILS ABSOLUTE COUNT (BEAKER) (test code = 0.21 K/ L 0.04-0.54 416) BASOPHILS ABSOLUTE COUNT (BEAKER) (test code = 0.02 K/ L 0 .01-0.08 417) IMMATURE GRANULOCYTES-RELATIVE PERCENT (BEAKER) 1 % 0-1 (test code = 5721) [id number] 07:28:00 Test Item Value Reference Range Comments MAGNESIUM (BEAKER) (test code = 627) 1.9 mg/dL 1.6-2.6 BASIC METABOLIC [id number] 07:28:00 Test Item Value Reference Range Comments SODIUM (BEAKER) (test 135 meq/L 136-145 code = 381) POTASSIUM (BEAKER) (test 4.3 meq/L 3.5-5.1 code = 379) CHLORIDE (BEAKER) (test 98 meq/L 98-107 code = 382) CO2 (BEAKER) (test code = 28 meq/L 22-29 355) BLOOD UREA NITROGEN 24 mg/dL 7-21 (BEAKER) (test code = 354) CREATININE (BEAKER) (test 1.31 mg/dL 0.57-1.25 code = 358) GLUCOSE RANDOM (BEAKER) 92 mg/dL 70-105 (test code = 652) CALCIUM (BEAKER) (test 8.6 mg/dL 8.4-10.2 code = 697) EGFR (BEAKER) (test code 55 mL/min/1.73 sq m EST IMATED GFR IS NOT = 1092) ACCURATE CREA TININE CLEARANCE IN PRE DICTING GLOMERULAR FILTR ATION RATE. ESTIMATED GFR IS NOT APPLICABLE F OR DIALYSIS PATIENT S. HEPATIC FUNCTION [id number] 07:28:00 Test Item Value Reference Range Comments TOTAL PROTEIN (BEAKER) (test code = 770) 6.3 gm/dL 6.0-8.3 ALBUMIN (BEAKER) (test code = 1145) 3.3 g/dL 3.5-5.0 BILIRUBIN TOTAL (BEAKER) (test code = 377) 0.7 mg/dL 0.2-1 .2 BILIRUBIN DIRECT (BEAKER) (test code = 706) 0.4 mg/dL 0.1- 0.5 ALKALINE PHOSPHATASE (BEAKER) (test code = 346) 176 U/L 40-150 AST (SGOT) (BEAKER) (test code = 353) 45 U/L 5-34 ALT (SGPT) (BEAKER) (test code = 347) 41 U/L 6-55 CBC (HEMOGRAM ONLY)2017-04-01 06:53:00 Test Item Value Reference Range Comments WHITE BLOOD CELL COUNT (BEAKER) (test code = 6.6 K/ L 3.5 -10.5 775) RED BLOOD CELL COUNT (BEAKER) (test code = 761) 2.87 M/ L 4.63-6.08 HEMOGLOBIN (BEAKER) (test code = 410) 9.0 GM/DL 13.7-17.5 HEMATOCRIT (BEAKER) (test code = 411) 27.2 % 40.1-51.0 MEAN CORPUSCULAR VOLUME (BEAKER) (test code = 94.8 fL 79 .0-92.2 753) MEAN CORPUSCULAR HEMOGLOBIN (BEAKER) (test code 31.4 pg 25.7-32.2 = 751) MEAN CORPUSCULAR HEMOGLOBIN CONC (BEAKER) (test 33.1 GM/DL 32.3-36.5 code = 752) RED CELL DISTRIBUTION WIDTH (BEAKER) (test code 12.5 % 11.6-14.4 = 412) PLATELET COUNT (BEAKER) (test code = 756) 226 K/CU MM 150-45 0 MEAN PLATELET VOLUME (BEAKER) (test code = 754) 10.7 fL 9.4-12.4 NUCLEATED RED BLOOD CELLS (BEAKER) (test code = 0 /100 WBC 0-0 413) [id number] 05:09:00 Test Item Value Reference Range Comments MAGNESIUM (BEAKER) (test code = 627) 1.8 mg/dL 1.6-2.6 BASIC METABOLIC [id number] 05:09:00 Test Item Value Reference Range Comments SODIUM (BEAKER) (test 135 meq/L 136-145 code = 381) POTASSIUM (BEAKER) (test 4.4 meq/L 3.5-5.1 code = 379) CHLORIDE (BEAKER) (test 99 meq/L 98-107 code = 382) CO2 (BEAKER) (test code = 28 meq/L 22-29 355) BLOOD UREA NITROGEN 18 mg/dL 7-21 (BEAKER) (test code = 354) CREATININE (BEAKER) (test 1.18 mg/dL 0.57-1.25 code = 358) GLUCOSE RANDOM (BEAKER) 97 mg/dL 70-105 (test code = 652) CALCIUM (BEAKER) (test 9.4 mg/dL 8.4-10.2 code = 697) EGFR (BEAKER) (test code 62 mL/min/1.73 sq m EST IMATED GFR IS NOT = 1092) ACCURATE CREA TININE CLEARANCE IN PRE DICTING GLOMERULAR FILTR ATION RATE. ESTIMATED GFR IS NOT APPLICABLE F OR DIALYSIS PATIENT S. HEPATIC FUNCTION [id number] 05:09:00 Test Item Value Reference Range Comments TOTAL PROTEIN (BEAKER) (test code = 770) 7.1 gm/dL 6.0-8.3 ALBUMIN (BEAKER) (test code = 1145) 3.7 g/dL 3.5-5.0 BILIRUBIN TOTAL (BEAKER) (test code = 377) 0.8 mg/dL 0.2-1 .2 BILIRUBIN DIRECT (BEAKER) (test code = 706) 0.4 mg/dL 0.1- 0.5 ALKALINE PHOSPHATASE (BEAKER) (test code = 346) 61 U/L 40-150 AST (SGOT) (BEAKER) (test code = 353) 24 U/L 5-34 ALT (SGPT) (BEAKER) (test code = 347) 32 U/L 6-55 CBC (HEMOGRAM ONLY)[id number] 04:44:00 Test Item Value Reference Range Comments WHITE BLOOD CELL COUNT (BEAKER) (test code = 9.8 K/ L 3.5 -10.5 775) RED BLOOD CELL COUNT (BEAKER) (test code = 761) 3.15 M/ L 4.63-6.08 HEMOGLOBIN (BEAKER) (test code = 410) 9.8 GM/DL 13.7-17.5 HEMATOCRIT (BEAKER) (test code = 411) 29.6 % 40.1-51.0 MEAN CORPUSCULAR VOLUME (BEAKER) (test code = 94.0 fL 79 .0-92.2 753) MEAN CORPUSCULAR HEMOGLOBIN (BEAKER) (test code 31.1 pg 25.7-32.2 = 751) MEAN CORPUSCULAR HEMOGLOBIN CONC (BEAKER) (test 33.1 GM/DL 32.3-36.5 code = 752) RED CELL DISTRIBUTION WIDTH (BEAKER) (test code 12.5 % 11.6-14.4 = 412) PLATELET COUNT (BEAKER) (test code = 756) 222 K/CU MM 150-45 0 MEAN PLATELET VOLUME (BEAKER) (test code = 754) 10.7 fL 9.4-12.4 NUCLEATED RED BLOOD CELLS (BEAKER) (test code = 0 /100 WBC 0-0 413) POCT-GLUCOSE [id number] 21:33:00 Test Item Value Reference Range Comments POC-GLUCOSE METER (BEAKER) 96 mg/dL 70-110 TESTE D AT [address] (test code = 1538) [place] [address] POCT-GLUCOSE [id number] 17:09:00 Test Item Value Reference Range Comments POC-GLUCOSE METER (BEAKER) 122 mg/dL 70-110 TESTE D AT [address] (test code = 1538) [place] [address] BASIC METABOLIC [id number] 13:23:00 Test Item Value Reference Range Comments SODIUM (BEAKER) (test 133 meq/L 136-145 code = 381) POTASSIUM (BEAKER) (test 4.4 meq/L 3.5-5.1 code = 379) CHLORIDE (BEAKER) (test 102 meq/L 98-107 code = 382) CO2 (BEAKER) (test code = 24 meq/L 22-29 355) BLOOD UREA NITROGEN 18 mg/dL 7-21 (BEAKER) (test code = 354) CREATININE (BEAKER) (test 0.98 mg/dL 0.57-1.25 code = 358) GLUCOSE RANDOM (BEAKER) 133 mg/dL 70-105 (test code = 652) CALCIUM (BEAKER) (test 8.6 mg/dL 8.4-10.2 code = 697) EGFR (BEAKER) (test code 77 mL/min/1.73 sq m EST IMATED GFR IS NOT = 1092) ACCURATE CREA TININE CLEARANCE IN PRE DICTING GLOMERULAR FILTR ATION RATE. ESTIMATED GFR IS NOT APPLICABLE F OR DIALYSIS PATIENT S. POCT-GLUCOSE [id number] 13:02:00 Test Item Value Reference Range Comments POC-GLUCOSE METER (BEAKER) 123 mg/dL 70-110 TESTE D AT [address] (test code = 1538) [place] [address] POCT-GLUCOSE [id number] 08:01:00 Test Item Value Reference Range Comments POC-GLUCOSE METER (BEAKER) 109 mg/dL 70-110 TESTE D AT [facility] [address] (test code = 1538) [place] [address] [id number] 07:16:00 Test Item Value Reference Range Comments MAGNESIUM (BEAKER) (test code = 627) 1.8 mg/dL 1.6-2.6 HEPATIC FUNCTION [id number] 07:16:00 Test Item Value Reference Range Comments TOTAL PROTEIN (BEAKER) (test code = 770) 6.3 gm/dL 6.0-8.3 ALBUMIN (BEAKER) (test code = 1145) 3.6 g/dL 3.5-5.0 BILIRUBIN TOTAL (BEAKER) (test code = 377) 0.6 mg/dL 0.2-1 .2 BILIRUBIN DIRECT (BEAKER) (test code = 706) 0.3 mg/dL 0.1- 0.5 ALKALINE PHOSPHATASE (BEAKER) (test code = 346) 49 U/L 40-150 AST (SGOT) (BEAKER) (test code = 353) 35 U/L 5-34 ALT (SGPT) (BEAKER) (test code = 347) 37 U/L 6-55 CBC (HEMOGRAM ONLY)2017-03-30 06:31:00 Test Item Value Reference Range Comments WHITE BLOOD CELL COUNT (BEAKER) (test code = 9.8 K/ L 3.5 -10.5 775) RED BLOOD CELL COUNT (BEAKER) (test code = 761) 2.87 M/ L 4.63-6.08 HEMOGLOBIN (BEAKER) (test code = 410) 9.0 GM/DL 13.7-17.5 HEMATOCRIT (BEAKER) (test code = 411) 26.9 % 40.1-51.0 MEAN CORPUSCULAR VOLUME (BEAKER) (test code = 93.7 fL 79 .0-92.2 753) MEAN CORPUSCULAR HEMOGLOBIN (BEAKER) (test code 31.4 pg 25.7-32.2 = 751) MEAN CORPUSCULAR HEMOGLOBIN CONC (BEAKER) (test 33.5 GM/DL 32.3-36.5 code = 752) RED CELL DISTRIBUTION WIDTH (BEAKER) (test code 13.1 % 11.6-14.4 = 412) PLATELET COUNT (BEAKER) (test code = 756) 203 K/CU MM 150-45 0 MEAN PLATELET VOLUME (BEAKER) (test code = 754) 11.4 fL 9.4-12.4 NUCLEATED RED BLOOD CELLS (BEAKER) (test code = 0 /100 WBC 0-0 413) POCT-GLUCOSE [id number] 05:33:00 Test Item Value Reference Range Comments POC-GLUCOSE METER (BEAKER) 132 mg/dL 70-110 TESTE D AT [address] (test code = 1538) [place] [address] HEMOGLOBIN AND [id number] 10:52:00 Test Item Value Reference Range Comments HEMOGLOBIN (BEAKER) (test code = 410) 9.3 GM/DL 13.7-17.5 HEMATOCRIT (BEAKER) (test code = 411) 27.4 % 40.1-51.0 POCT-GLUCOSE [id number] 07:51:00 Test Item Value Reference Range Comments POC-GLUCOSE METER (BEAKER) 147 mg/dL 70-110 TESTE D AT [address] (test code = 1538) [place] [address] POCT-GLUCOSE [id number] 07:22:00 Test Item Value Reference Range Comments POC-GLUCOSE METER (BEAKER) 168 mg/dL 70-110 TESTE D AT [address] (test code = 1538) [facility] [address] CBC W/PLT COUNT & AUTO [id number] 05:26:00 Test Item Value Reference Range Comments WHITE BLOOD CELL COUNT (BEAKER) (test code = 9.8 K/ L 3.5 -10.5 775) RED BLOOD CELL COUNT (BEAKER) (test code = 761) 2.44 M/ L 4.63-6.08 HEMOGLOBIN (BEAKER) (test code = 410) 7.8 GM/DL 13.7-17.5 HEMATOCRIT (BEAKER) (test code = 411) 23.0 % 40.1-51.0 MEAN CORPUSCULAR VOLUME (BEAKER) (test code = 94.3 fL 79 .0-92.2 753) MEAN CORPUSCULAR HEMOGLOBIN (BEAKER) (test code 32.0 pg 25.7-32.2 = 751) MEAN CORPUSCULAR HEMOGLOBIN CONC (BEAKER) (test 33.9 GM/DL 32.3-36.5 code = 752) RED CELL DISTRIBUTION WIDTH (BEAKER) (test code 12.4 % 11.6-14.4 = 412) PLATELET COUNT (BEAKER) (test code = 756) 208 K/CU MM 150-45 0 MEAN PLATELET VOLUME (BEAKER) (test code = 754) 10.3 fL 9.4-12.4 NUCLEATED RED BLOOD CELLS (BEAKER) (test code = 0 /100 WBC 0-0 413) NEUTROPHILS RELATIVE PERCENT (BEAKER) (test code 92 % = 429) LYMPHOCYTES RELATIVE PERCENT (BEAKER) (test code 3 % = 430) MONOCYTES RELATIVE PERCENT (BEAKER) (test code = 5 % 431) EOSINOPHILS RELATIVE PERCENT (BEAKER) (test code 0 % = 432) BASOPHILS RELATIVE PERCENT (BEAKER) (test code = 0 % 437) NEUTROPHILS ABSOLUTE COUNT (BEAKER) (test code = 9.05 K/ L 1.78-5.38 670) LYMPHOCYTES ABSOLUTE COUNT (BEAKER) (test code = 0.25 K/ L 1.32-3.57 414) MONOCYTES ABSOLUTE COUNT (BEAKER) (test code = 0.46 K/ L 0 .30-0.82 415) EOSINOPHILS ABSOLUTE COUNT (BEAKER) (test code = 0.01 K/ L 0.04-0.54 416) BASOPHILS ABSOLUTE COUNT (BEAKER) (test code = 0.01 K/ L 0 .01-0.08 417) IMMATURE GRANULOCYTES-RELATIVE PERCENT (BEAKER) 1 % 0-1 (test code = 2801) OXYGEN SATURATION, [id number] 04:58:00 Test Item Value Reference Range Comments O2 SATURATION (MEASURED) (BEAKER) (test code = 1455) 75.9 % [id number] 04:55:00 Test Item Value Reference Range Comments MAGNESIUM (BEAKER) (test code = 627) 1.9 mg/dL 1.6-2.6 BASIC METABOLIC [id number] 04:55:00 Test Item Value Reference Range Comments SODIUM (BEAKER) (test 140 meq/L 136-145 code = 381) POTASSIUM (BEAKER) (test 4.6 meq/L 3.5-5.1 code = 379) CHLORIDE (BEAKER) (test 112 meq/L 98-107 code = 382) CO2 (BEAKER) (test code = 20 meq/L 22-29 355) BLOOD UREA NITROGEN 21 mg/dL 7-21 (BEAKER) (test code = 354) CREATININE (BEAKER) (test 1.38 mg/dL 0.57-1.25 code = 358) GLUCOSE RANDOM (BEAKER) 136 mg/dL 70-105 (test code = 652) CALCIUM (BEAKER) (test 8.4 mg/dL 8.4-10.2 code = 697) EGFR (BEAKER) (test code 52 mL/min/1.73 sq m EST IMATED GFR IS NOT = 1092) ACCURATE CREA TININE CLEARANCE IN PRE DICTING GLOMERULAR FILTR ATION RATE. ESTIMATED GFR IS NOT APPLICABLE F OR DIALYSIS PATIENT S. LACTIC ACID, ARTERIAL, WHOLE [id number] 04:52:00 Test Item Value Reference Range Comments LACTATE BLOOD ARTERIAL (2) (BEAKER) (test code = 1.2 mmol/L 0.5-2.2 2874) Effective 12/10/2015: Units/Reference Range ChangeNew: 0.5-2.2 mmol/L Previous: 5-20 mg/dLBLOOD GAS, [id number] 02:31:00 Test Item Value Reference Range Comments PH ARTERIAL (BEAKER) (test code = 383) 7.38 7.35-7.45 PCO2 ARTERIAL (BEAKER) (test code = 384) 41 mmHg 35-45 PO2 ARTERIAL (BEAKER) (test code = 385) 134 mmHg 80-90 O2 SATURATION ARTERIAL (BEAKER) (test code = 98.5 % 96. 0-97.0 386) HCO3 ARTERIAL (BEAKER) (test code = 388) 23 mmol/L 21-29 BASE EXCESS ARTERIAL (BEAKER) (test code = 387) -1.7 mmol/L -2.0-3.0 PATIENT TEMPERATURE (BEAKER) (test code = 1818) 37.9 C FIO2 (BEAKER) (test code = 1819) 36.0 % Post extubation ABGBLOOD GAS, [id number] 01:21:00 Test Item Value Reference Range Comments PH ARTERIAL (BEAKER) (test code = 383) 7.48 7.35-7.45 PCO2 ARTERIAL (BEAKER) (test code = 384) 28 mmHg 35-45 PO2 ARTERIAL (BEAKER) (test code = 385) 155 mmHg 80-90 O2 SATURATION ARTERIAL (BEAKER) (test code = 99.1 % 96. 0-97.0 386) HCO3 ARTERIAL (BEAKER) (test code = 388) 20 mmol/L 21-29 BASE EXCESS ARTERIAL (BEAKER) (test code = 387) -2.2 mmol/L -2.0-3.0 PATIENT TEMPERATURE (BEAKER) (test code = 1818) 37.3 C FIO2 (BEAKER) (test code = 1819) 40.0 % BLOOD GAS, [id number] 21:32:00 Test Item Value Reference Range Comments PH ARTERIAL (BEAKER) (test code = 383) 7.32 7.35-7.45 PCO2 ARTERIAL (BEAKER) (test code = 384) 43 mmHg 35-45 PO2 ARTERIAL (BEAKER) (test code = 385) 90 mmHg 80-90 O2 SATURATION ARTERIAL (BEAKER) (test code = 96.5 % 96. 0-97.0 386) HCO3 ARTERIAL (BEAKER) (test code = 388) 22 mmol/L 21-29 BASE EXCESS ARTERIAL (BEAKER) (test code = 387) -4.4 mmol/L -2.0-3.0 PATIENT TEMPERATURE (BEAKER) (test code = 1818) 36.4 C FIO2 (BEAKER) (test code = 1819) 60.0 % [id number] 19:17:00 Test Item Value Reference Range Comments PHOSPHORUS (BEAKER) (test code = 604) 3.3 mg/dL 2.3-4.7 [id number] 19:17:00 Test Item Value Reference Range Comments MAGNESIUM (BEAKER) (test code = 627) 1.9 mg/dL 1.6-2.6 BASIC METABOLIC [id number] 19:17:00 Test Item Value Reference Range Comments SODIUM (BEAKER) (test 139 meq/L 136-145 code = 381) POTASSIUM (BEAKER) (test 4.8 meq/L 3.5-5.1 code = 379) CHLORIDE (BEAKER) (test 111 meq/L 98-107 code = 382) CO2 (BEAKER) (test code = 18 meq/L 22-29 355) BLOOD UREA NITROGEN 23 mg/dL 7-21 (BEAKER) (test code = 354) CREATININE (BEAKER) (test 1.12 mg/dL 0.57-1.25 code = 358) GLUCOSE RANDOM (BEAKER) 125 mg/dL 70-105 (test code = 652) CALCIUM (BEAKER) (test 8.9 mg/dL 8.4-10.2 code = 697) EGFR (BEAKER) (test code 66 mL/min/1.73 sq m EST IMATED GFR IS NOT = 1092) ACCURATE CREA TININE CLEARANCE IN PRE DICTING GLOMERULAR FILTR ATION RATE. ESTIMATED GFR IS NOT APPLICABLE F OR DIALYSIS PATIENT S. LACTIC ACID, ARTERIAL, WHOLE [id number] 19:13:00 Test Item Value Reference Range Comments LACTATE BLOOD ARTERIAL (2) (BEAKER) (test code = 1.3 mmol/L 0.5-2.2 2874) Effective 12/10/2015: Units/Reference Range ChangeNew: 0.5-2.2 mmol/L Previous: 5-20 mg/dLCBC W/PLT COUNT & AUTO [id number] 18:59:00 Test Item Value Reference Range Comments WHITE BLOOD CELL COUNT (BEAKER) (test code = 5.1 K/ L 3.5 -10.5 775) RED BLOOD CELL COUNT (BEAKER) (test code = 761) 3.02 M/ L 4.63-6.08 HEMOGLOBIN (BEAKER) (test code = 410) 9.6 GM/DL 13.7-17.5 HEMATOCRIT (BEAKER) (test code = 411) 27.8 % 40.1-51.0 MEAN CORPUSCULAR VOLUME (BEAKER) (test code = 92.1 fL 79 .0-92.2 753) MEAN CORPUSCULAR HEMOGLOBIN (BEAKER) (test code 31.8 pg 25.7-32.2 = 751) MEAN CORPUSCULAR HEMOGLOBIN CONC (BEAKER) (test 34.5 GM/DL 32.3-36.5 code = 752) RED CELL DISTRIBUTION WIDTH (BEAKER) (test code 12.3 % 11.6-14.4 = 412) PLATELET COUNT (BEAKER) (test code = 756) 237 K/CU MM 150-45 0 MEAN PLATELET VOLUME (BEAKER) (test code = 754) 10.3 fL 9.4-12.4 NUCLEATED RED BLOOD CELLS (BEAKER) (test code = 0 /100 WBC 0-0 413) NEUTROPHILS RELATIVE PERCENT (BEAKER) (test code 88 % = 429) LYMPHOCYTES RELATIVE PERCENT (BEAKER) (test code 11 % = 430) MONOCYTES RELATIVE PERCENT (BEAKER) (test code = 1 % 431) EOSINOPHILS RELATIVE PERCENT (BEAKER) (test code 0 % = 432) BASOPHILS RELATIVE PERCENT (BEAKER) (test code = 0 % 437) NEUTROPHILS ABSOLUTE COUNT (BEAKER) (test code = 4.49 K/ L 1.78-5.38 670) LYMPHOCYTES ABSOLUTE COUNT (BEAKER) (test code = 0.56 K/ L 1.32-3.57 414) MONOCYTES ABSOLUTE COUNT (BEAKER) (test code = 0.03 K/ L 0 .30-0.82 415) EOSINOPHILS ABSOLUTE COUNT (BEAKER) (test code = 0.02 K/ L 0.04-0.54 416) BASOPHILS ABSOLUTE COUNT (BEAKER) (test code = 0.01 K/ L 0 .01-0.08 417) IMMATURE GRANULOCYTES-RELATIVE PERCENT (BEAKER) 0 % 0-1 (test code = 2801) OXYGEN SATURATION, [id number] 18:31:00 Test Item Value Reference Range Comments O2 SATURATION (MEASURED) (BEAKER) (test code = 1455) 66.2 % BLOOD GAS, [id number] 18:31:00 Test Item Value Reference Range Comments PH ARTERIAL (BEAKER) (test code = 383) 7.35 7.35-7.45 PCO2 ARTERIAL (BEAKER) (test code = 384) 37 mmHg 35-45 PO2 ARTERIAL (BEAKER) (test code = 385) 88 mmHg 80-90 O2 SATURATION ARTERIAL (BEAKER) (test code = 96.8 % 96. 0-97.0 386) HCO3 ARTERIAL (BEAKER) (test code = 388) 20 mmol/L 21-29 BASE EXCESS ARTERIAL (BEAKER) (test code = 387) -5.1 mmol/L -2.0-3.0 PATIENT TEMPERATURE (BEAKER) (test code = 1818) 36.0 C FIO2 (BEAKER) (test code = 1819) 85.0 % GLUCOSE-STAT [id number] 18:31:00 Test Item Value Reference Range Comments GLUCOSE RANDOM (BEAKER) (test code = 652) 116 mg/dL 70-110 HEMOGLOBIN-STAT [id number] 18:31:00 Test Item Value Reference Range Comments HEMOGLOBIN (BEAKER) (test code = 410) 10.2 g/dL 13.0-16.8 HGB/HCT (H&H) - STAT [id number] 18:31:00 Test Item Value Reference Range Comments HEMOGLOBIN (BEAKER) (test code = 410) 10.2 GM/DL 13.0-16.8 HEMATOCRIT (BEAKER) (test code = 411) 30.0 % 40.0-50.0 CALCIUM, [id number] 18:31:00 Test Item Value Reference Range Comments CALCIUM IONIZED (BEAKER) (test code = 698) 1.20 mmol/L 1.12- 1.27 PH, BLOOD (BEAKER) (test code = 1810) 7.35 SODIUM NA-STAT [id number] 18:30:00 Test Item Value Reference Range Comments SODIUM (BEAKER) (test code = 381) 135 meq/L 135-148 POTASSIUM-STAT [id number] 18:30:00 Test Item Value Reference Range Comments POTASSIUM (BEAKER) (test code = 379) 4.6 meq/L 3.6-5.5 THROMBOELASTOGRAPH (TEG)[id number] 17:55:00 Test Item Value Reference Range Comments TEG ACTIVATED CLOTTING TIME (BEAKER) (test code 4.9 minutes 4.0-7.0 = 1407) TEG FIBRINOGEN ACTIVITY (BEAKER) (test code = 72.6 degrees 61 .0-73.0 1408) TEG PLT. AGGREGATION (BEAKER) (test code = 66.1 MM 55.0- 65.0 1409) TGH ACTIVATED CLOTTING TIME (BEAKER) (test code 5.1 minutes 4.0-7.0 = 1411) TGH FIBRINOGEN ACTIVITY (BEAKER) (test code = 72.3 degrees 61 .0-73.0 1412) TGH PLT. AGGREGATION (BEAKER) (test code = 62.8 MM 55.0- 65.0 1413) [id number] 17:36:00 Test Item Value Reference Range Comments ACTIVATED CLOTTING TIME 103 sec TESTED A T [facility] [address] (BEAKER) (test code = 441) [place] [address] [id number] 17:36:00 Test Item Value Reference Range Comments ACTIVATED CLOTTING TIME 466 sec TESTED A T [facility] [address] (BEAKER) (test code = 441) [place] [address] [id number] 17:36:00 Test Item Value Reference Range Comments ACTIVATED CLOTTING TIME 461 sec TESTED A T [facility] [address] (BEAKER) (test code = 441) [place] [address] [id number] 17:36:00 Test Item Value Reference Range Comments ACTIVATED CLOTTING TIME 461 sec TESTED A T [facility] [address] (BEAKER) (test code = 441) [place] [address] CALCIUM, [id number] 17:09:00 Test Item Value Reference Range Comments CALCIUM IONIZED (BEAKER) (test code = 698) 1.19 mmol/L 1.12- 1.27 PH, BLOOD (BEAKER) (test code = 1810) 7.30 SODIUM NA-STAT [id number] 17:09:00 Test Item Value Reference Range Comments SODIUM (BEAKER) (test code = 381) 135 meq/L 135-148 BLOOD GAS, [id number] 17:09:00 Test Item Value Reference Range Comments PH ARTERIAL (BEAKER) (test code = 383) 7.32 7.35-7.45 PCO2 ARTERIAL (BEAKER) (test code = 384) 43 mmHg 35-45 PO2 ARTERIAL (BEAKER) (test code = 385) 92 mmHg 80-90 O2 SATURATION ARTERIAL (BEAKER) (test code = 96.9 % 96. 0-97.0 386) HCO3 ARTERIAL (BEAKER) (test code = 388) 22 mmol/L 21-29 BASE EXCESS ARTERIAL (BEAKER) (test code = 387) -4.7 mmol/L -2.0-3.0 PATIENT TEMPERATURE (BEAKER) (test code = 1818) 35.7 C FIO2 (BEAKER) (test code = 1819) 100.0 % POTASSIUM-STAT [id number] 17:09:00 Test Item Value Reference Range Comments POTASSIUM (BEAKER) (test code = 379) 5.6 meq/L 3.6-5.5 GLUCOSE-STAT [id number] 17:09:00 Test Item Value Reference Range Comments GLUCOSE RANDOM (BEAKER) (test code = 652) 125 mg/dL 70-110 HGB/HCT (H&H) - STAT [id number] 17:09:00 Test Item Value Reference Range Comments HEMOGLOBIN (BEAKER) (test code = 410) 10.2 g/dL 13.0-16.8 HEMATOCRIT (BEAKER) (test code = 411) 30.0 % 40.0-50.0 PLATELET AGGREGATION: FUNCTION [id number] 17:04:00 Test Item Value Reference Range Comments WEAK ADP RESULT(BEAKER) (test 48 % 60-91 code = 2236) PLATELET FUNCTION SCREEN 40-49% indicates moderate INTERP (BEAKER) (test code = platelet dysfunction 8970) [id number] Sandrine Hickey MD (electronic (BEAKER) (test code = 2622) signature) PLATELET COUNT AGG (BEAKER) 178 K/CU MM 150-450 (test code = 2656) [id number] 16:48:00 Test Item Value Reference Range Comments FIBRINOGEN LEVEL (BEAKER) (test code = 658) 269 mg/dl 225- 434 [id number] 16:48:00 Test Item Value Reference Range Comments PARTIAL THROMBOPLASTIN TIME (BEAKER) (test code 40.2 seconds 22.5-36.0 = 760) PROTHROMBIN [id number] 16:47:00 Test Item Value Reference Range Comments PROTIME (BEAKER) (test code = 759) 17.9 seconds 11.7-14.7 INR (BEAKER) (test code = 370) 1.5 <=5.9 RECOMMENDED COUMADIN/WARFARIN INR THERAPY RANGESSTANDARD DOSE: 2.0 - 3.0 Includes: PROPHYLAXIS forvenous thrombosis, systemic embolization; TREATMENT for venous thrombosis and/or pulmonary embolus.HIGH RISK: Target INR is 2.5-3.5 for patients with mechanical heart valves.PLATELET [id number] 16:21:00 Test Item Value Reference Range Comments PLATELET COUNT (BEAKER) (test code = 756) 169 K/CU MM 150-45 0 BLOOD GAS, [id number] 16:15:00 Test Item Value Reference Range Comments PH ARTERIAL (BEAKER) (test code = 383) 7.36 7.35-7.45 PCO2 ARTERIAL (BEAKER) (test code = 384) 37 mmHg 35-45 PO2 ARTERIAL (BEAKER) (test code = 385) 381 mmHg 80-90 O2 SATURATION ARTERIAL (BEAKER) (test code = 99.8 % 96. 0-97.0 386) HCO3 ARTERIAL (BEAKER) (test code = 388) 21 mmol/L 21-29 BASE EXCESS ARTERIAL (BEAKER) (test code = 387) -4.6 mmol/L -2.0-3.0 PATIENT TEMPERATURE (BEAKER) (test code = 1818) 35.7 C FIO2 (BEAKER) (test code = 1819) 100.0 % SODIUM NA-STAT [id number] 16:15:00 Test Item Value Reference Range Comments SODIUM (BEAKER) (test code = 381) 132 meq/L 135-148 POTASSIUM-STAT [id number] 16:15:00 Test Item Value Reference Range Comments POTASSIUM (BEAKER) (test code = 379) 5.7 meq/L 3.6-5.5 GLUCOSE-STAT [id number] 16:15:00 Test Item Value Reference Range Comments GLUCOSE RANDOM (BEAKER) (test code = 652) 113 mg/dL 70-110 HGB/HCT (H&H) - STAT [id number] 16:15:00 Test Item Value Reference Range Comments HEMOGLOBIN (BEAKER) (test code = 410) 9.3 g/dL 13.0-16.8 HEMATOCRIT (BEAKER) (test code = 411) 27.0 % 40.0-50.0 CALCIUM, [id number] 16:14:00 Test Item Value Reference Range Comments CALCIUM IONIZED (BEAKER) (test code = 698) 1.01 mmol/L 1.12- 1.27 PH, BLOOD (BEAKER) (test code = 1810) 7.34 HGB/HCT (H&H) - STAT [id number] 15:45:00 Test Item Value Reference Range Comments HEMOGLOBIN (BEAKER) (test code = 410) 8.8 g/dL 13.0-16.8 HEMATOCRIT (BEAKER) (test code = 411) 26.0 % 40.0-50.0 BLOOD GAS, [id number] 15:44:00 Test Item Value Reference Range Comments PH ARTERIAL (BEAKER) (test code = 383) 7.44 7.35-7.45 PCO2 ARTERIAL (BEAKER) (test code = 384) 33 mmHg 35-45 PO2 ARTERIAL (BEAKER) (test code = 385) 358 mmHg 80-90 O2 SATURATION ARTERIAL (BEAKER) (test code = 99.8 % 96. 0-97.0 386) HCO3 ARTERIAL (BEAKER) (test code = 388) 22 mmol/L 21-29 BASE EXCESS ARTERIAL (BEAKER) (test code = 387) -1.9 mmol/L -2.0-3.0 PATIENT TEMPERATURE (BEAKER) (test code = 1818) 35.0 C FIO2 (BEAKER) (test code = 1819) 70.0 % SODIUM NA-STAT [id number] 15:44:00 Test Item Value Reference Range Comments SODIUM (BEAKER) (test code = 381) 127 meq/L 135-148 POTASSIUM-STAT [id number] 15:44:00 Test Item Value Reference Range Comments POTASSIUM (BEAKER) (test code = 379) 7.3 meq/L 3.6-5.5 Specimen NOT hemolyzed.GLUCOSE-STAT [id number] 15:42:00 Test Item Value Reference Range Comments GLUCOSE RANDOM (BEAKER) (test code = 652) 104 mg/dL 70-110 POTASSIUM-STAT [id number] 15:25:00 Test Item Value Reference Range Comments POTASSIUM (BEAKER) (test code = 379) 6.3 meq/L 3.6-5.5 Specimen NOT hemolyzed.BLOOD GAS, [id number] 15:24:00 Test Item Value Reference Range Comments PH VENOUS (BEAKER) (test code = 701) 7.42 7.32-7.42 PCO2 VENOUS (BEAKER) (test code = 755) 33 mmHg 41-51 PO2 VENOUS (BEAKER) (test code = 702) 38 mmHg 25-40 O2 SATURATION VENOUS (BEAKER) (test code = 703) 91.4 % 40.0-70.0 HCO3 VENOUS (BEAKER) (test code = 705) 23 mmol/L 21-29 BASE EXCESS VENOUS (BEAKER) (test code = 704) -3.4 mmol/L -2 .0-3.0 PATIENT TEMPERATURE (BEAKER) (test code = 1818) 28.6 C FIO2 (BEAKER) (test code = 1819) 70.0 % BLOOD GAS, [id number] 15:24:00 Test Item Value Reference Range Comments PH ARTERIAL (BEAKER) (test code = 383) 7.47 7.35-7.45 PCO2 ARTERIAL (BEAKER) (test code = 384) 29 mmHg 35-45 PO2 ARTERIAL (BEAKER) (test code = 385) 412 mmHg 80-90 O2 SATURATION ARTERIAL (BEAKER) (test code = 99.8 % 96. 0-97.0 386) HCO3 ARTERIAL (BEAKER) (test code = 388) 22 mmol/L 21-29 BASE EXCESS ARTERIAL (BEAKER) (test code = 387) -2.9 mmol/L -2.0-3.0 PATIENT TEMPERATURE (BEAKER) (test code = 1818) 28.6 C FIO2 (BEAKER) (test code = 1819) 70.0 % SODIUM NA-STAT [id number] 15:24:00 Test Item Value Reference Range Comments SODIUM (BEAKER) (test code = 381) 127 meq/L 135-148 HGB/HCT (H&H) - STAT [id number] 15:24:00 Test Item Value Reference Range Comments HEMOGLOBIN (BEAKER) (test code = 410) 8.8 g/dL 13.0-16.8 HEMATOCRIT (BEAKER) (test code = 411) 26.0 % 40.0-50.0 GLUCOSE-STAT [id number] 15:21:00 Test Item Value Reference Range Comments GLUCOSE RANDOM (BEAKER) (test code = 652) 90 mg/dL 70-110 PLATELET AGGREGATION: FUNCTION [id number] 14:44:00 Test Item Value Reference Range Comments WEAK ADP RESULT(BEAKER) (test 34 % 60-91 code = 9624) PLATELET FUNCTION SCREEN 0-39% indicates marked platelet INTERP (BEAKER) (test code = dysfunction 1306) [id number] Zach Thrasher M.D. (electonic (BEAKER) (test code = 2622) signature) PLATELET COUNT AGG (BEAKER) 217 K/CU MM 150-450 (test code = 2656) PLATELET AGGREGATION: FUNCTION [id number] 14:43:00 Test Item Value Reference Range Comments WEAK ADP RESULT(BEAKER) (test 14 % 60-91 code = 2135) PLATELET FUNCTION SCREEN 0-39% indicates marked platelet INTERP (BEAKER) (test code = dysfunction 0218) [id number] Zach Thrasher M.D. (electonic (BEAKER) (test code = 2622) signature) PLATELET COUNT AGG (BEAKER) 207 K/CU MM 150-450 (test code = 2656) CALCIUM, [id number] 14:02:00 Test Item Value Reference Range Comments CALCIUM IONIZED (BEAKER) (test code = 698) 1.16 mmol/L 1.12- 1.27 PH, BLOOD (BEAKER) (test code = 1810) 7.44 BLOOD GAS, [id number] 14:02:00 Test Item Value Reference Range Comments PH ARTERIAL (BEAKER) (test code = 383) 7.46 7.35-7.45 PCO2 ARTERIAL (BEAKER) (test code = 384) 35 mmHg 35-45 PO2 ARTERIAL (BEAKER) (test code = 385) 372 mmHg 80-90 O2 SATURATION ARTERIAL (BEAKER) (test code = 386) 99.8 % 96.0-97.0 HCO3 ARTERIAL (BEAKER) (test code = 388) 24 mmol/L 21-29 BASE EXCESS ARTERIAL (BEAKER) (test code = 387) 0.3 mmol/L -2.0-3.0 PATIENT TEMPERATURE (BEAKER) (test code = 1818) 35.8 C FIO2 (BEAKER) (test code = 1819) 99.0 % GLUCOSE-STAT [id number] 14:01:00 Test Item Value Reference Range Comments GLUCOSE RANDOM (BEAKER) (test code = 652) 94 mg/dL 70-110 SODIUM NA-STAT [id number] 14:01:00 Test Item Value Reference Range Comments SODIUM (BEAKER) (test code = 381) 135 meq/L 135-148 POTASSIUM-STAT [id number] 14:01:00 Test Item Value Reference Range Comments POTASSIUM (BEAKER) (test code = 379) 4.5 meq/L 3.6-5.5 HGB/HCT (H&H) - STAT [id number] 14:01:00 Test Item Value Reference Range Comments HEMOGLOBIN (BEAKER) (test code = 410) 15.0 g/dL 13.0-16.8 HEMATOCRIT (BEAKER) (test code = 411) 44.0 % 40.0-50.0 HEPATIC FUNCTION [id number] 04:45:00 Test Item Value Reference Range Comments TOTAL PROTEIN (BEAKER) (test 7.5 gm/dL 6.0-8.3 Spe cimen slightly hemolyzed code = 770) ALBUMIN (BEAKER) (test code = 3.6 g/dL 3.5-5.0 Sp ecimen slightly hemolyzed 1145) BILIRUBIN TOTAL (BEAKER) (test < mg/dL 0.2-1.2 S pecimen slightly hemolyzed code = 377) BILIRUBIN DIRECT (BEAKER) (test 0.1 mg/dL 0.1-0.5 Specimen slightly hemolyzed code = 706) ALKALINE PHOSPHATASE (BEAKER) 101 U/L 40-150 (test code = 346) AST (SGOT) (BEAKER) (test code 34 U/L 5-34 S pecimen slightly hemolyzed = 353) ALT (SGPT) (BEAKER) (test code 81 U/L 6-55 S pecimen slightly hemolyzed = 347) CREATINE KINASE (CK)[id number] 04:45:00 Test Item Value Reference Range Comments CREATINE KINASE TOTAL (BEAKER) (test code = 380) 42 U/L 29-200 [id number] 04:31:00 Test Item Value Reference Range Comments PARTIAL THROMBOPLASTIN TIME (BEAKER) (test code 68.3 seconds 22.5-36.0 = 760) [id number] 04:30:00 Test Item Value Reference Range Comments FIBRINOGEN LEVEL (BEAKER) (test code = 658) 525 mg/dl 225- 434 PROTHROMBIN [id number] 04:29:00 Test Item Value Reference Range Comments PROTIME (BEAKER) (test code = 759) 13.6 seconds 11.7-14.7 INR (BEAKER) (test code = 370) 1.1 <=5.9 RECOMMENDED COUMADIN/WARFARIN INR THERAPY RANGESSTANDARD DOSE: 2.0 - 3.0 Includes: PROPHYLAXIS forvenous thrombosis, systemic embolization; TREATMENT for venous thrombosis and/or pulmonary embolus.HIGH RISK: Target INR is 2.5-3.5 for patients with mechanical heart valves.PLATELET [id number] 04:21:00 Test Item Value Reference Range Comments PLATELET COUNT (BEAKER) (test code = 756) 211 K/CU MM 150-45 0 [id number] 05:03:00 Test Item Value Reference Range Comments MAGNESIUM (BEAKER) (test code = 2.1 mg/dL 1.6-2.6 Specimen slightly hemolyzed 627) BASIC METABOLIC [id number] 05:03:00 Test Item Value Reference Range Comments SODIUM (BEAKER) (test 137 meq/L 136-145 code = 381) POTASSIUM (BEAKER) (test 5.3 meq/L 3.5-5.1 Specime n slightly code = 379) hemolyzed CHLORIDE (BEAKER) (test 105 meq/L 98-107 code = 382) CO2 (BEAKER) (test code = 23 meq/L 22-29 355) BLOOD UREA NITROGEN 24 mg/dL 7-21 (BEAKER) (test code = 354) CREATININE (BEAKER) (test 1.24 mg/dL 0.57-1.25 Specim en slightly code = 358) hemolyzed GLUCOSE RANDOM (BEAKER) 91 mg/dL 70-105 (test code = 652) CALCIUM (BEAKER) (test 9.1 mg/dL 8.4-10.2 code = 697) EGFR (BEAKER) (test code 59 mL/min/1.73 sq m EST IMATED GFR IS NOT = 1092) ACCURATE CREA TININE CLEARANCE IN PRE DICTING GLOMERULAR FILTR ATION RATE. ESTIMATED GFR IS NOT APPLICABLE F OR DIALYSIS PATIENT S. HEPATIC FUNCTION [id number] 05:03:00 Test Item Value Reference Range Comments TOTAL PROTEIN (BEAKER) (test 7.6 gm/dL 6.0-8.3 Spe cimen slightly hemolyzed code = 770) ALBUMIN (BEAKER) (test code = 3.6 g/dL 3.5-5.0 Sp ecimen slightly hemolyzed 1145) BILIRUBIN TOTAL (BEAKER) (test 0.4 mg/dL 0.2-1.2 S pecimen slightly hemolyzed code = 377) BILIRUBIN DIRECT (BEAKER) (test 0.2 mg/dL 0.1-0.5 Specimen slightly hemolyzed code = 706) ALKALINE PHOSPHATASE (BEAKER) 80 U/L 40-150 (test code = 346) AST (SGOT) (BEAKER) (test code 47 U/L 5-34 S pecimen slightly hemolyzed = 353) ALT (SGPT) (BEAKER) (test code 87 U/L 6-55 S pecimen slightly hemolyzed = 347) CREATINE KINASE (CK)2017-03-27 05:03:00 Test Item Value Reference Range Comments CREATINE KINASE TOTAL (BEAKER) (test code = 380) 51 U/L 29-200 [id number] 05:00:00 Test Item Value Reference Range Comments PARTIAL THROMBOPLASTIN TIME (BEAKER) (test code 81.9 seconds 22.5-36.0 = 760) CALCIUM, [id number] 06:12:00 Test Item Value Reference Range Comments CALCIUM IONIZED (BEAKER) (test code = 698) 1.21 mmol/L 1.12- 1.27 PH, BLOOD (BEAKER) (test code = 1810) 7.34 [id number] 05:57:00 Test Item Value Reference Range Comments PHOSPHORUS (BEAKER) (test code = 604) 3.0 mg/dL 2.3-4.7 [id number] 05:57:00 Test Item Value Reference Range Comments MAGNESIUM (BEAKER) (test code = 627) 2.2 mg/dL 1.6-2.6 BASIC METABOLIC [id number] 05:57:00 Test Item Value Reference Range Comments SODIUM (BEAKER) (test 137 meq/L 136-145 code = 381) POTASSIUM (BEAKER) (test 4.6 meq/L 3.5-5.1 code = 379) CHLORIDE (BEAKER) (test 106 meq/L 98-107 code = 382) CO2 (BEAKER) (test code = 22 meq/L 22-29 355) BLOOD UREA NITROGEN 24 mg/dL 7-21 (BEAKER) (test code = 354) CREATININE (BEAKER) (test 1.26 mg/dL 0.57-1.25 code = 358) GLUCOSE RANDOM (BEAKER) 88 mg/dL 70-105 (test code = 652) CALCIUM (BEAKER) (test 8.7 mg/dL 8.4-10.2 code = 697) EGFR (BEAKER) (test code 58 mL/min/1.73 sq m EST IMATED GFR IS NOT = 1092) ACCURATE CREA TININE CLEARANCE IN PRE DICTING GLOMERULAR FILTR ATION RATE. ESTIMATED GFR IS NOT APPLICABLE F OR DIALYSIS PATIENT S. HEPATIC FUNCTION [id number] 05:57:00 Test Item Value Reference Range Comments TOTAL PROTEIN (BEAKER) (test code = 770) 7.4 gm/dL 6.0-8.3 ALBUMIN (BEAKER) (test code = 1145) 3.6 g/dL 3.5-5.0 BILIRUBIN TOTAL (BEAKER) (test code = 377) 0.4 mg/dL 0.2-1 .2 BILIRUBIN DIRECT (BEAKER) (test code = 706) 0.2 mg/dL 0.1- 0.5 ALKALINE PHOSPHATASE (BEAKER) (test code = 346) 77 U/L 40-150 AST (SGOT) (BEAKER) (test code = 353) 40 U/L 5-34 ALT (SGPT) (BEAKER) (test code = 347) 86 U/L 6-55 CREATINE KINASE (CK)2017-03-26 05:57:00 Test Item Value Reference Range Comments CREATINE KINASE TOTAL (BEAKER) (test code = 380) 59 U/L 29-200 [id number] 04:51:00 Test Item Value Reference Range Comments PARTIAL THROMBOPLASTIN TIME (BEAKER) (test code 76.6 seconds 22.5-36.0 = 760) CBC W/PLT COUNT & AUTO [id number] 04:37:00 Test Item Value Reference Range Comments WHITE BLOOD CELL COUNT (BEAKER) (test code = 6.2 K/ L 3.5 -10.5 775) RED BLOOD CELL COUNT (BEAKER) (test code = 761) 4.54 M/ L 4.63-6.08 HEMOGLOBIN (BEAKER) (test code = 410) 14.4 GM/DL 13.7-17.5 HEMATOCRIT (BEAKER) (test code = 411) 42.6 % 40.1-51.0 MEAN CORPUSCULAR VOLUME (BEAKER) (test code = 93.8 fL 79 .0-92.2 753) MEAN CORPUSCULAR HEMOGLOBIN (BEAKER) (test code 31.7 pg 25.7-32.2 = 751) MEAN CORPUSCULAR HEMOGLOBIN CONC (BEAKER) (test 33.8 GM/DL 32.3-36.5 code = 752) RED CELL DISTRIBUTION WIDTH (BEAKER) (test code 12.2 % 11.6-14.4 = 412) PLATELET COUNT (BEAKER) (test code = 756) 207 K/CU MM 150-45 0 MEAN PLATELET VOLUME (BEAKER) (test code = 754) 11.0 fL 9.4-12.4 NUCLEATED RED BLOOD CELLS (BEAKER) (test code = 0 /100 WBC 0-0 413) NEUTROPHILS RELATIVE PERCENT (BEAKER) (test code 60 % = 429) LYMPHOCYTES RELATIVE PERCENT (BEAKER) (test code 23 % = 430) MONOCYTES RELATIVE PERCENT (BEAKER) (test code = 10 % 431) EOSINOPHILS RELATIVE PERCENT (BEAKER) (test code 7 % = 432) BASOPHILS RELATIVE PERCENT (BEAKER) (test code = 1 % 437) NEUTROPHILS ABSOLUTE COUNT (BEAKER) (test code = 3.68 K/ L 1.78-5.38 670) LYMPHOCYTES ABSOLUTE COUNT (BEAKER) (test code = 1.41 K/ L 1.32-3.57 414) MONOCYTES ABSOLUTE COUNT (BEAKER) (test code = 0.60 K/ L 0 .30-0.82 415) EOSINOPHILS ABSOLUTE COUNT (BEAKER) (test code = 0.41 K/ L 0.04-0.54 416) BASOPHILS ABSOLUTE COUNT (BEAKER) (test code = 0.04 K/ L 0 .01-0.08 417) IMMATURE GRANULOCYTES-RELATIVE PERCENT (BEAKER) 0 % 0-1 (test code = 2801) BASIC METABOLIC [id number] 05:19:00 Test Item Value Reference Range Comments SODIUM (BEAKER) (test 138 meq/L 136-145 code = 381) POTASSIUM (BEAKER) (test 3.9 meq/L 3.5-5.1 code = 379) CHLORIDE (BEAKER) (test 109 meq/L 98-107 code = 382) CO2 (BEAKER) (test code = 23 meq/L 22-29 355) BLOOD UREA NITROGEN 28 mg/dL 7-21 (BEAKER) (test code = 354) CREATININE (BEAKER) (test 1.18 mg/dL 0.57-1.25 code = 358) GLUCOSE RANDOM (BEAKER) 84 mg/dL 70-105 (test code = 652) CALCIUM (BEAKER) (test 7.8 mg/dL 8.4-10.2 code = 697) EGFR (BEAKER) (test code 62 mL/min/1.73 sq m EST IMATED GFR IS NOT = 1092) ACCURATE CREA TININE CLEARANCE IN PRE DICTING GLOMERULAR FILTR ATION RATE. ESTIMATED GFR IS NOT APPLICABLE F OR DIALYSIS PATIENT S. [id number] 05:17:00 Test Item Value Reference Range Comments PHOSPHORUS (BEAKER) (test code = 604) 2.6 mg/dL 2.3-4.7 [id number] 05:17:00 Test Item Value Reference Range Comments MAGNESIUM (BEAKER) (test code = 627) 1.8 mg/dL 1.6-2.6 HEPATIC FUNCTION [id number] 05:17:00 Test Item Value Reference Range Comments TOTAL PROTEIN (BEAKER) (test code = 770) 6.6 gm/dL 6.0-8.3 ALBUMIN (BEAKER) (test code = 1145) 3.2 g/dL 3.5-5.0 BILIRUBIN TOTAL (BEAKER) (test code = 377) < mg/dL 0.2-1 .2 BILIRUBIN DIRECT (BEAKER) (test code = 706) 0.1 mg/dL 0.1- 0.5 ALKALINE PHOSPHATASE (BEAKER) (test code = 346) 76 U/L 40-150 AST (SGOT) (BEAKER) (test code = 353) 48 U/L 5-34 ALT (SGPT) (BEAKER) (test code = 347) 97 U/L 6-55 [id number] 04:22:00 Test Item Value Reference Range Comments PHOSPHORUS (BEAKER) (test code = 604) 1.8 mg/dL 2.3-4.7 [id number] 04:22:00 Test Item Value Reference Range Comments MAGNESIUM (BEAKER) (test code = 627) 1.2 mg/dL 1.6-2.6 CREATINE KINASE (CK)2017-03-25 04:22:00 Test Item Value Reference Range Comments CREATINE KINASE TOTAL (BEAKER) (test code = 380) 39 U/L 29-200 [id number] 04:13:00 Test Item Value Reference Range Comments PARTIAL THROMBOPLASTIN TIME (BEAKER) (test code 80.9 seconds 22.5-36.0 = 760) CALCIUM, [id number] 04:03:00 Test Item Value Reference Range Comments CALCIUM IONIZED (BEAKER) (test code = 698) 1.15 mmol/L 1.12- 1.27 PH, BLOOD (BEAKER) (test code = 1810) 7.37 CBC W/PLT COUNT & AUTO [id number] 04:02:00 Test Item Value Reference Range Comments WHITE BLOOD CELL COUNT (BEAKER) (test code = 6.7 K/ L 3.5 -10.5 775) RED BLOOD CELL COUNT (BEAKER) (test code = 761) 4.71 M/ L 4.63-6.08 HEMOGLOBIN (BEAKER) (test code = 410) 14.5 GM/DL 13.7-17.5 HEMATOCRIT (BEAKER) (test code = 411) 43.8 % 40.1-51.0 MEAN CORPUSCULAR VOLUME (BEAKER) (test code = 93.0 fL 79 .0-92.2 753) MEAN CORPUSCULAR HEMOGLOBIN (BEAKER) (test code 30.8 pg 25.7-32.2 = 751) MEAN CORPUSCULAR HEMOGLOBIN CONC (BEAKER) (test 33.1 GM/DL 32.3-36.5 code = 752) RED CELL DISTRIBUTION WIDTH (BEAKER) (test code 12.3 % 11.6-14.4 = 412) PLATELET COUNT (BEAKER) (test code = 756) 195 K/CU MM 150-45 0 MEAN PLATELET VOLUME (BEAKER) (test code = 754) 10.9 fL 9.4-12.4 NUCLEATED RED BLOOD CELLS (BEAKER) (test code = 0 /100 WBC 0-0 413) NEUTROPHILS RELATIVE PERCENT (BEAKER) (test code 59 % = 429) LYMPHOCYTES RELATIVE PERCENT (BEAKER) (test code 24 % = 430) MONOCYTES RELATIVE PERCENT (BEAKER) (test code = 9 % 431) EOSINOPHILS RELATIVE PERCENT (BEAKER) (test code 7 % = 432) BASOPHILS RELATIVE PERCENT (BEAKER) (test code = 1 % 437) NEUTROPHILS ABSOLUTE COUNT (BEAKER) (test code = 3.98 K/ L 1.78-5.38 670) LYMPHOCYTES ABSOLUTE COUNT (BEAKER) (test code = 1.61 K/ L 1.32-3.57 414) MONOCYTES ABSOLUTE COUNT (BEAKER) (test code = 0.63 K/ L 0 .30-0.82 415) EOSINOPHILS ABSOLUTE COUNT (BEAKER) (test code = 0.46 K/ L 0.04-0.54 416) BASOPHILS ABSOLUTE COUNT (BEAKER) (test code = 0.04 K/ L 0 .01-0.08 417) IMMATURE GRANULOCYTES-RELATIVE PERCENT (BEAKER) 0 % 0-1 (test code = 2801) TROPONIN [id number] 20:50:00 Test Item Value Reference Range Comments TROPONIN I (BEAKER) (test code = 397) 0.64 ng/mL 0.00-0.03 Effective 06/25/2014: Reference Range [...] neurological disease, and persistent tachyarrhythmia.PLATELET AGGREGATION: DRUG EFFECT 2017-03-24 14:47:00 Test Item Value Reference Range Comments STRONG ADP RESULT(BEAKER) (test 44 % 70-94 code = 7) WEAK ADP RESULT(BEAKER) (test 37 % 60-91 code = 5) ARACHADONIC ACID RESULT(BEAKER) < % 63-89 (test code = 2138) PLATELET AGG DRUG INTERPRETATION Decreased response to ADP (BEAKER) (test code = 2408) suggest a [id number]-svsenzipp drug effect. PLATELET AGG DRUG INTERPRETATION Decreased response to (BEAKER) (test code = 029005) arachidonic acid suggests aspirin-like effect. [id number] (BEAKER) Sandrine Hickey MD (test code = 2621) (electronic signature) PLATELET COUNT AGG (BEAKER) 214 K/CU MM 150-450 (test code = 2656) [id number] 07:12:00 Test Item Value Reference Range Comments PARTIAL THROMBOPLASTIN TIME (BEAKER) (test 110.7 seconds 22.5- 36.0 code = 760) [id number] 02:22:00 Test Item Value Reference Range Comments MAGNESIUM (BEAKER) (test code = 627) 1.9 mg/dL 1.6-2.6 BASIC METABOLIC [id number] 02:22:00 Test Item Value Reference Range Comments SODIUM (BEAKER) (test 139 meq/L 136-145 code = 381) POTASSIUM (BEAKER) (test 4.0 meq/L 3.5-5.1 code = 379) CHLORIDE (BEAKER) (test 106 meq/L 98-107 code = 382) CO2 (BEAKER) (test code = 23 meq/L 22-29 355) BLOOD UREA NITROGEN 28 mg/dL 7-21 (BEAKER) (test code = 354) CREATININE (BEAKER) (test 1.31 mg/dL 0.57-1.25 code = 358) GLUCOSE RANDOM (BEAKER) 95 mg/dL 70-105 (test code = 652) CALCIUM (BEAKER) (test 8.4 mg/dL 8.4-10.2 code = 697) EGFR (BEAKER) (test code 55 mL/min/1.73 sq m EST IMATED GFR IS NOT = 1092) ACCURATE CREA TININE CLEARANCE IN PRE DICTING GLOMERULAR FILTR ATION RATE. ESTIMATED GFR IS NOT APPLICABLE F OR DIALYSIS PATIENT S. HEPATIC FUNCTION [id number] 02:22:00 Test Item Value Reference Range Comments TOTAL PROTEIN (BEAKER) (test code = 770) 6.9 gm/dL 6.0-8.3 ALBUMIN (BEAKER) (test code = 1145) 3.4 g/dL 3.5-5.0 BILIRUBIN TOTAL (BEAKER) (test code = 377) 0.3 mg/dL 0.2-1 .2 BILIRUBIN DIRECT (BEAKER) (test code = 706) 0.2 mg/dL 0.1- 0.5 ALKALINE PHOSPHATASE (BEAKER) (test code = 346) 72 U/L 40-150 AST (SGOT) (BEAKER) (test code = 353) 89 U/L 5-34 ALT (SGPT) (BEAKER) (test code = 347) 134 U/L 6-55 CREATINE KINASE (CK)2017-03-24 02:22:00 Test Item Value Reference Range Comments CREATINE KINASE TOTAL (BEAKER) (test code = 380) 57 U/L 29-200 CBC (HEMOGRAM ONLY)2017-03-24 02:02:00 Test Item Value Reference Range Comments WHITE BLOOD CELL COUNT (BEAKER) (test code = 6.7 K/ L 3.5 -10.5 775) RED BLOOD CELL COUNT (BEAKER) (test code = 761) 4.71 M/ L 4.63-6.08 HEMOGLOBIN (BEAKER) (test code = 410) 14.7 GM/DL 13.7-17.5 HEMATOCRIT (BEAKER) (test code = 411) 44.1 % 40.1-51.0 MEAN CORPUSCULAR VOLUME (BEAKER) (test code = 93.6 fL 79 .0-92.2 753) MEAN CORPUSCULAR HEMOGLOBIN (BEAKER) (test code 31.2 pg 25.7-32.2 = 751) MEAN CORPUSCULAR HEMOGLOBIN CONC (BEAKER) (test 33.3 GM/DL 32.3-36.5 code = 752) RED CELL DISTRIBUTION WIDTH (BEAKER) (test code 12.3 % 11.6-14.4 = 412) PLATELET COUNT (BEAKER) (test code = 756) 209 K/CU MM 150-45 0 MEAN PLATELET VOLUME (BEAKER) (test code = 754) 10.7 fL 9.4-12.4 NUCLEATED RED BLOOD CELLS (BEAKER) (test code = 0 /100 WBC 0-0 413) HEPATITIS PANEL, [id number] 12:12:00 Test Item Value Reference Range Comments HEPATITIS A IGM ANTIBODY (BEAKER) (test code = Nonreactive N onreactive 498) HEPATITIS B CORE IGM ANTIBODY (BEAKER) (test Nonreactive Non reactive code = 645) HEPATITIS C ANTIBODY (BEAKER) (test code = 367) Nonreactive Nonreactive HEPATITIS B SURFACE ANTIGEN (2) (BEAKER) (test Nonreactive N onreactive code = 2585) PLATELET AGGREGATION: DRUG [id number] 11:04:00 Test Item Value Reference Range Comments STRONG ADP RESULT(BEAKER) (test 30 % 70-94 code = 2137) WEAK ADP RESULT(BEAKER) (test 20 % 60-91 code = 2135) ARACHADONIC ACID RESULT(BEAKER) 6 % 63-89 (test code = 2138) PLATELET AGG DRUG INTERPRETATION Decreased response to (BEAKER) (test code = 2408) arachidonic acid suggests aspirin-like effect. PLATELET AGG DRUG INTERPRETATION Decreased response to ADP (BEAKER) (test code = 872610) suggest a A6O88-vqanowlcr drug effect. [id number] (BEAKER) Sandrine Hickey MD (test code = 2621) (electronic signature) PLATELET COUNT AGG (BEAKER) 221 K/CU MM 150-450 (test code = 2656) CREATINE KINASE (CK)2017-03-23 10:42:00 Test Item Value Reference Range Comments CREATINE KINASE TOTAL (BEAKER) (test code = 380) 59 U/L 29-200 COMPREHENSIVE METABOLIC [id number] 10:10:00 Test Item Value Reference Range Comments TOTAL PROTEIN (BEAKER) 7.7 gm/dL 6.0-8.3 (test code = 770) ALBUMIN (BEAKER) (test 3.8 g/dL 3.5-5.0 code = 1145) ALKALINE PHOSPHATASE 78 U/L 40-150 (BEAKER) (test code = 346) BILIRUBIN TOTAL (BEAKER) 0.5 mg/dL 0.2-1.2 (test code = 377) SODIUM (BEAKER) (test code 136 meq/L 136-145 = 381) POTASSIUM (BEAKER) (test 4.6 meq/L 3.5-5.1 code = 379) CHLORIDE (BEAKER) (test 106 meq/L 98-107 code = 382) CO2 (BEAKER) (test code = 22 meq/L 22-29 355) BLOOD UREA NITROGEN 23 mg/dL 7-21 (BEAKER) (test code = 354) CREATININE (BEAKER) (test 1.17 mg/dL 0.57-1.25 code = 358) GLUCOSE RANDOM (BEAKER) 88 mg/dL 70-105 (test code = 652) CALCIUM (BEAKER) (test 9.3 mg/dL 8.4-10.2 code = 697) AST (SGOT) (BEAKER) (test 133 U/L 5-34 code = 353) ALT (SGPT) (BEAKER) (test 148 U/L 6-55 code = 347) EGFR (BEAKER) (test code = 63 mL/min/1.73 sq m E STIMATED GFR IS NOT 1092) ACCURATE CREA TININE CLEARANCE IN PRE DICTING GLOMERULAR FILTR ATION RATE. ESTIMATED GFR IS NOT APPLICABLE F OR DIALYSIS PATIENT S. URINALYSIS W/ [id number] 08:54:00 Test Item Value Reference Range Comments COLOR (BEAKER) (test code = 470) Red CLARITY (BEAKER) (test code = 469) Hazy SPECIFIC GRAVITY UA (BEAKER) (test code = 468) 1.014 1 .001-1.035 PH UA (BEAKER) (test code = 467) 6.0 5.0-8.0 PROTEIN UA (BEAKER) (test code = 464) 50 mg/dL Negative GLUCOSE UA (BEAKER) (test code = 365) Negative Negative KETONES UA (BEAKER) (test code = 371) Trace Negative BILIRUBIN UA (BEAKER) (test code = 462) Negative Negative BLOOD UA (BEAKER) (test code = 461) Large Negative NITRITE UA (BEAKER) (test code = 465) Negative Negative LEUKOCYTE ESTERASE UA (BEAKER) (test code = Small Nega tive 466) UROBILINOGEN UA (BEAKER) (test code = 463) 0.2 mg/dL 0.2-1 .0 RBC UA (BEAKER) (test code = 519) 697 /HPF WBC UA (BEAKER) (test code = 520) 0 /HPF SOURCE(BEAKER) (test code = 2793) Urine, Voided [id number] 07:48:00 Test Item Value Reference Range Comments PARTIAL THROMBOPLASTIN TIME (BEAKER) (test code 77.2 seconds 22.5-36.0 = 760) [id number] 05:30:00 Test Item Value Reference Range Comments FIBRINOGEN LEVEL (BEAKER) (test code = 658) 462 mg/dl 225- 434 PROTHROMBIN TIME/[id number] 05:29:00 Test Item Value Reference Range Comments PROTIME (BEAKER) (test code = 759) 13.0 seconds 11.7-14.7 INR (BEAKER) (test code = 370) 1.0 <=5.9 RECOMMENDED COUMADIN/WARFARIN INR THERAPY RANGESSTANDARD DOSE: 2.0 - 3.0 Includes: PROPHYLAXIS forvenous thrombosis, systemic embolization; TREATMENT for venous thrombosis and/or pulmonary embolus.HIGH RISK: Target INR is 2.5-3.5 for patients with mechanical heart valves.[id number] 05:24:00 Test Item Value Reference Range Comments PHOSPHORUS (BEAKER) (test code 2.6 mg/dL 2.3-4.7 S pecimen slightly hemolyzed = 604) BASIC METABOLIC [id number] 05:24:00 Test Item Value Reference Range Comments SODIUM (BEAKER) (test 136 meq/L 136-145 code = 381) POTASSIUM (BEAKER) (test 4.7 meq/L 3.5-5.1 Specime n slightly code = 379) hemolyzed CHLORIDE (BEAKER) (test 108 meq/L 98-107 code = 382) CO2 (BEAKER) (test code = 19 meq/L 22-29 355) BLOOD UREA NITROGEN 23 mg/dL 7-21 (BEAKER) (test code = 354) CREATININE (BEAKER) (test 1.09 mg/dL 0.57-1.25 Specim en slightly code = 358) hemolyzed GLUCOSE RANDOM (BEAKER) 93 mg/dL 70-105 (test code = 652) CALCIUM (BEAKER) (test 8.6 mg/dL 8.4-10.2 code = 697) EGFR (BEAKER) (test code 68 mL/min/1.73 sq m EST IMATED GFR IS NOT = 1092) ACCURATE CREA TININE CLEARANCE IN PRE DICTING GLOMERULAR FILTR ATION RATE. ESTIMATED GFR IS NOT APPLICABLE F OR DIALYSIS PATIENT S. HEPATIC FUNCTION [id number] 05:24:00 Test Item Value Reference Range Comments TOTAL PROTEIN (BEAKER) (test 7.1 gm/dL 6.0-8.3 Spe cimen slightly hemolyzed code = 770) ALBUMIN (BEAKER) (test code = 3.4 g/dL 3.5-5.0 Sp ecimen slightly hemolyzed 1145) BILIRUBIN TOTAL (BEAKER) (test 0.5 mg/dL 0.2-1.2 S pecimen slightly hemolyzed code = 377) BILIRUBIN DIRECT (BEAKER) (test 0.2 mg/dL 0.1-0.5 Specimen slightly hemolyzed code = 706) ALKALINE PHOSPHATASE (BEAKER) 69 U/L 40-150 (test code = 346) AST (SGOT) (BEAKER) (test code 121 U/L 5-34 S pecimen slightly hemolyzed = 353) ALT (SGPT) (BEAKER) (test code 123 U/L 6-55 S pecimen slightly hemolyzed = 347) CBC (HEMOGRAM ONLY)2017-03-23 05:06:00 Test Item Value Reference Range Comments WHITE BLOOD CELL COUNT (BEAKER) (test code = 7.1 K/ L 3.5 -10.5 775) RED BLOOD CELL COUNT (BEAKER) (test code = 761) 5.04 M/ L 4.63-6.08 HEMOGLOBIN (BEAKER) (test code = 410) 15.7 GM/DL 13.7-17.5 HEMATOCRIT (BEAKER) (test code = 411) 47.2 % 40.1-51.0 MEAN CORPUSCULAR VOLUME (BEAKER) (test code = 93.7 fL 79 .0-92.2 753) MEAN CORPUSCULAR HEMOGLOBIN (BEAKER) (test code 31.2 pg 25.7-32.2 = 751) MEAN CORPUSCULAR HEMOGLOBIN CONC (BEAKER) (test 33.3 GM/DL 32.3-36.5 code = 752) RED CELL DISTRIBUTION WIDTH (BEAKER) (test code 12.4 % 11.6-14.4 = 412) PLATELET COUNT (BEAKER) (test code = 756) 221 K/CU MM 150-45 0 MEAN PLATELET VOLUME (BEAKER) (test code = 754) 10.5 fL 9.4-12.4 NUCLEATED RED BLOOD CELLS (BEAKER) (test code = 0 /100 WBC 0-0 413) [id number] 00:39:00 Test Item Value Reference Range Comments PARTIAL THROMBOPLASTIN TIME (BEAKER) (test code 66.0 seconds 22.5-36.0 = 760) [id number] 17:41:00 Test Item Value Reference Range Comments PARTIAL THROMBOPLASTIN TIME (BEAKER) (test code 57.6 seconds 22.5-36.0 = 760) PLATELET AGGREGATION: DRUG [id number] 11:12:00 Test Item Value Reference Range Comments STRONG ADP RESULT(BEAKER) (test 23 % 70-94 code = 2137) WEAK ADP RESULT(BEAKER) (test 31 % 60-91 code = 2135) ARACHADONIC ACID RESULT(BEAKER) 13 % 63-89 (test code = 2138) PLATELET AGG DRUG INTERPRETATION Decreased response to (BEAKER) (test code = 2408) arachidonic acid suggests aspirin-like effect. PLATELET AGG DRUG INTERPRETATION Decreased response to ADP (BEAKER) (test code = 511730) suggest a [id number] drug effect. [id number] (BEAKER) Sandrine Hickey MD (test code = 2621) (electronic signature) PLATELET COUNT AGG (BEAKER) 226 K/CU MM 150-450 (test code = 2656) HEMOGLOBIN [id number] 08:29:00 Test Item Value Reference Range Comments HEMOGLOBIN A1C (BEAKER) (test code = 368) 5.1 % 4.3-6. 1 [id number] 04:39:00 Test Item Value Reference Range Comments PHOSPHORUS (BEAKER) (test code = 604) 3.1 mg/dL 2.3-4.7 BASIC METABOLIC [id number] 04:39:00 Test Item Value Reference Range Comments SODIUM (BEAKER) (test 135 meq/L 136-145 code = 381) POTASSIUM (BEAKER) (test 4.5 meq/L 3.5-5.1 code = 379) CHLORIDE (BEAKER) (test 108 meq/L 98-107 code = 382) CO2 (BEAKER) (test code = 20 meq/L 22-29 355) BLOOD UREA NITROGEN 27 mg/dL 7-21 (BEAKER) (test code = 354) CREATININE (BEAKER) (test 1.26 mg/dL 0.57-1.25 code = 358) GLUCOSE RANDOM (BEAKER) 95 mg/dL 70-105 (test code = 652) CALCIUM (BEAKER) (test 9.1 mg/dL 8.4-10.2 code = 697) EGFR (BEAKER) (test code 58 mL/min/1.73 sq m EST IMATED GFR IS NOT = 1092) ACCURATE CREA TININE CLEARANCE IN PRE DICTING GLOMERULAR FILTR ATION RATE. ESTIMATED GFR IS NOT APPLICABLE F OR DIALYSIS PATIENT S. HEPATIC FUNCTION [id number] 04:39:00 Test Item Value Reference Range Comments TOTAL PROTEIN (BEAKER) (test code = 770) 7.5 gm/dL 6.0-8.3 ALBUMIN (BEAKER) (test code = 1145) 3.6 g/dL 3.5-5.0 BILIRUBIN TOTAL (BEAKER) (test code = 377) 0.4 mg/dL 0.2-1 .2 BILIRUBIN DIRECT (BEAKER) (test code = 706) 0.2 mg/dL 0.1- 0.5 ALKALINE PHOSPHATASE (BEAKER) (test code = 346) 74 U/L 40-150 AST (SGOT) (BEAKER) (test code = 353) 23 U/L 5-34 ALT (SGPT) (BEAKER) (test code = 347) 20 U/L 6-55 [id number] 04:33:00 Test Item Value Reference Range Comments PARTIAL THROMBOPLASTIN TIME (BEAKER) (test code 50.1 seconds 22.5-36.0 = 760) CBC (HEMOGRAM ONLY)2017-03-22 04:22:00 Test Item Value Reference Range Comments WHITE BLOOD CELL COUNT (BEAKER) (test code = 7.4 K/ L 3.5 -10.5 775) RED BLOOD CELL COUNT (BEAKER) (test code = 761) 5.10 M/ L 4.63-6.08 HEMOGLOBIN (BEAKER) (test code = 410) 16.1 GM/DL 13.7-17.5 HEMATOCRIT (BEAKER) (test code = 411) 47.8 % 40.1-51.0 MEAN CORPUSCULAR VOLUME (BEAKER) (test code = 93.7 fL 79 .0-92.2 753) MEAN CORPUSCULAR HEMOGLOBIN (BEAKER) (test code 31.6 pg 25.7-32.2 = 751) MEAN CORPUSCULAR HEMOGLOBIN CONC (BEAKER) (test 33.7 GM/DL 32.3-36.5 code = 752) RED CELL DISTRIBUTION WIDTH (BEAKER) (test code 12.5 % 11.6-14.4 = 412) PLATELET COUNT (BEAKER) (test code = 756) 208 K/CU MM 150-45 0 MEAN PLATELET VOLUME (BEAKER) (test code = 754) 10.3 fL 9.4-12.4 NUCLEATED RED BLOOD CELLS (BEAKER) (test code = 0 /100 WBC 0-0 413) TROPONIN [id number] 21:48:00 Test Item Value Reference Range Comments TROPONIN I (BEAKER) (test code = 397) 0.63 ng/mL 0.00-0.03 Effective 06/25/2014: Reference Range [...] neurological disease, and persistent tachyarrhythmia.B-TYPE NATRIURETIC FACTOR (BNP) 2017-03-21 21:44:00 Test Item Value Reference Range Comments B-TYPE NATRIURETIC PEPTIDE (BEAKER) (test code = 135 pg/mL 0-100 700) CREATINE KINASE (CK), TOTAL AND [id number] 21:43:00 Test Item Value Reference Range Comments CREATINE KINASE TOTAL (BEAKER) (test code = 380) 52 U/L 29-200 CREATINE KINASE-MB (BEAKER) (test code = 750) 1.8 ng/mL 0. 0-6.6 CREATINE KINASE-MB INDEX (BEAKER) (test code = 3.5 % 395) Effective 06/25/2014: CK-MB Reference Range ChangeNew: 0.0-6.6 Previous: 0.0-4.9CK-MB Reference Range:<6.7 Normal6.7-10.0 Borderline>10.0 [id number] 21:37:00 Test Item Value Reference Range Comments PHOSPHORUS (BEAKER) (test code = 604) 3.3 mg/dL 2.3-4.7 [id number] 21:37:00 Test Item Value Reference Range Comments MAGNESIUM (BEAKER) (test code = 627) 1.8 mg/dL 1.6-2.6 BASIC METABOLIC [id number] 21:37:00 Test Item Value Reference Range Comments SODIUM (BEAKER) (test 136 meq/L 136-145 code = 381) POTASSIUM (BEAKER) (test 4.5 meq/L 3.5-5.1 code = 379) CHLORIDE (BEAKER) (test 105 meq/L 98-107 code = 382) CO2 (BEAKER) (test code = 24 meq/L 22-29 355) BLOOD UREA NITROGEN 25 mg/dL 7-21 (BEAKER) (test code = 354) CREATININE (BEAKER) (test 1.36 mg/dL 0.57-1.25 code = 358) GLUCOSE RANDOM (BEAKER) 83 mg/dL 70-105 (test code = 652) CALCIUM (BEAKER) (test 9.2 mg/dL 8.4-10.2 code = 697) EGFR (BEAKER) (test code 53 mL/min/1.73 sq m EST IMATED GFR IS NOT = 1092) ACCURATE CREA TININE CLEARANCE IN PRE DICTING GLOMERULAR FILTR ATION RATE. ESTIMATED GFR IS NOT APPLICABLE F OR DIALYSIS PATIENT S. LIPID [id number] 21:37:00 Test Item Value Reference Range Comments TRIGLYCERIDES (BEAKER) (test code = 540) 289 mg/dL CHOLESTEROL (BEAKER) (test code = 631) 228 mg/dL HDL CHOLESTEROL (BEAKER) (test code = 976) 28 mg/dL LDL CHOLESTEROL CALCULATED (BEAKER) (test code = 142 mg/dL 633) Triglyceride Reference Range: Low Risk <150 Borderline 150-199 High Risk 200-499 Very High Risk >=500Cholesterol Reference Range: Low Risk <200 Borderline 200-239 High Risk >240HDL Cholesterol Reference Range: Low Risk >=60 High Risk <40LDL Cholesterol Reference Range: Optimal <100 Near Optimal 100-129 Borderline 130-159 High 160-189 Very High >=190HEPATIC FUNCTION [id number] 21:37:00 Test Item Value Reference Range Comments TOTAL PROTEIN (BEAKER) (test code = 770) 7.5 gm/dL 6.0-8.3 ALBUMIN (BEAKER) (test code = 1145) 3.7 g/dL 3.5-5.0 BILIRUBIN TOTAL (BEAKER) (test code = 377) 0.3 mg/dL 0.2-1 .2 BILIRUBIN DIRECT (BEAKER) (test code = 706) 0.1 mg/dL 0.1- 0.5 ALKALINE PHOSPHATASE (BEAKER) (test code = 346) 75 U/L 40-150 AST (SGOT) (BEAKER) (test code = 353) 17 U/L 5-34 ALT (SGPT) (BEAKER) (test code = 347) 16 U/L 6-55 [id number] 21:31:00 Test Item Value Reference Range Comments PARTIAL THROMBOPLASTIN TIME (BEAKER) (test code 37.6 seconds 22.5-36.0 = 760) Prior to initiating heparinCBC (HEMOGRAM ONLY)[id number] 21:24:00 Test Item Value Reference Range Comments WHITE BLOOD CELL COUNT (BEAKER) (test code = 7.0 K/ L 3.5 -10.5 775) RED BLOOD CELL COUNT (BEAKER) (test code = 761) 5.21 M/ L 4.63-6.08 HEMOGLOBIN (BEAKER) (test code = 410) 16.1 GM/DL 13.7-17.5 HEMATOCRIT (BEAKER) (test code = 411) 48.2 % 40.1-51.0 MEAN CORPUSCULAR VOLUME (BEAKER) (test code = 92.5 fL 79 .0-92.2 753) MEAN CORPUSCULAR HEMOGLOBIN (BEAKER) (test code 30.9 pg 25.7-32.2 = 751) MEAN CORPUSCULAR HEMOGLOBIN CONC (BEAKER) (test 33.4 GM/DL 32.3-36.5 code = 752) RED CELL DISTRIBUTION WIDTH (BEAKER) (test code 12.3 % 11.6-14.4 = 412) PLATELET COUNT (BEAKER) (test code = 756) 226 K/CU MM 150-45 0 MEAN PLATELET VOLUME (BEAKER) (test code = 754) 10.3 fL 9.4-12.4 NUCLEATED RED BLOOD CELLS (BEAKER) (test code = 0 /100 WBC 0-0 413)
[2019-11-26] MEDS ORDERED: TETRACAINE HCL 0.5% 4ML OPTH ONE (11:08)
[2019-11-26] MEDS ORDERED: FLUORESCEIN SODIUM 1 MG/WRAP ONE (11:08)
--- NOTE | 2019-11-26 11:30 | ER ---
Nurse's Notes [facility] Name: George Trujillo Age: 69 yrs Sex: Male : 1950 Arrival Date: 11/26/2019 Time: 10:04 Bed 17 Private MD: Selina Baker C Diagnosis: Foreign body to right eye at 3 O'clock position;Corneal abrasion Presentation: 11/25 10:16 Chief complaint: Right eye pain and redness since last night. Denies itching. hb Coronavirus screen: Proceed with normal triage. Ebola Screen: No symptoms or risks identified at this time. Initial Sepsis Screen: Does the patient meet any 2 criteria? No. Patient's initial sepsis screen is negative. Does the patient have a suspected source of infection? No. Patient's initial sepsis screen is negative. Risk Assessment: Do you want to hurt yourself or someone else? Patient reports no desire to harm self or others. Onset of symptoms was November 25, 2019. 10:16 Method Of Arrival: Ambulatory hb 10:16 Acuity: LORI 4 hb Historical: - Allergies: 10:19 No Known Allergies; hb - Home Meds: 10:19 amlodipine 5 mg tab 1 tab twice a day [Active]; amoxicillin 500 mg Oral cap 1 cap every hb 8 hours [Active]; atorvastatin 80 mg Oral tab 1 tab once daily [Active]; carvedilol 6.25 mg Oral tab 1 tab 2 times per day [Active]; Tylenol #3 Oral [Active]; - PMHx: 10:19 CAD; High Cholesterol; Hyperlipidemia; Hypertension; Prostate Cancer; hb - PSHx: 10:19 CABG; Knee surgery; shoulder; prostectomy; hb - Immunization history:: Adult Immunizations up to date. - Social history:: Smoking status: Patient denies any tobacco usage or history of. Screenin:00 Abuse screen: Denies threats or abuse. Nutritional screening: No deficits noted. em Tuberculosis screening: No symptoms or risk factors identified. Fall Risk None identified. Assessment: 11:00 General: Appears in no apparent distress. uncomfortable, Behavior is calm, cooperative, em appropriate for age, Denies fever. Pain: Complains of pain in right eye Pain currently is 6 out of 10 on a pain scale. Neuro: Level of Consciousness is awake, alert, obeys commands, Oriented to person, place, time, situation, Appropriate for age. Cardiovascular: Capillary refill < 3 seconds Patient's skin is warm and dry. Respiratory: Airway is patent Respiratory effort is even, unlabored, Respiratory pattern is regular, symmetrical. EENT: Eyes are tearing on right eye Sclera/Cornea are reddened in outer aspect of conjuctiva of right eye and inner aspect of conjuctiva of right eye. Derm: Skin is intact, is healthy with good turgor, Skin is pink, warm \T\ dry. Musculoskeletal: Capillary refill < 3 seconds, Range of motion: intact in all extremities. Vital Signs: 10:16 BP 162 / 82; Pulse 61; Resp 16; Temp 97.5; Pulse Ox 100% on R/A; Weight 79.38 kg; hb Height 5 ft. 8 in. (172.72 cm); Pain 6/10; 10:16 Body Mass Index 26.61 (79.38 kg, 172.72 cm) hb Visual Acuity: 11:02 Left Eye Visual acuity 20/20, ; Right Eye Visual acuity 20/50, ; Both Eyes Visual mh5 acuity 20/15; With Lenses; ED Course: 10:04 Patient arrived in ED. mr 10:04 Selina Baker MD is Private Physician. mr 10:18 Triage completed. hb 10:19 Arm band placed on. hb 10:35 Bala Porter, KIM is Primary Nurse. em 10:35 Di Xie FNP-C is PHCP. snw 10:35 Juanjo Downey MD is Attending Physician. snw 11:04 Patient has correct armband on for positive identification. Bed in low position. Call mh5 light in reach. Pulse ox on. NIBP on. 11:10 Assist provider with eye exam of right eye. using fluorescein stain, Performed by denilson GRAHAM Patient tolerated well. 11:27 Wilbert Travis MD is Referral Physician. snw 11:47 IV discontinued, intact, bleeding controlled, No redness/swelling at site. Pressure em dressing applied. Administered Medications: 11:11 Drug: Tetracaine Drops 0.5 % 1 drops Route: Ophthalmic; Site: right eye; em 11:47 Follow up: Response: No adverse reaction; Pain is decreased em 11:11 Drug: Fluorescein Strip 1 strip Route: Ophthalmic; Site: right eye; em 11:47 Follow up: Response: No adverse reaction em Outcome: 11:29 Discharge ordered by MD. odonnell 11:46 Discharged to home ambulatory. em 11:46 Condition: good 11:46 Discharge instructions given to patient, Instructed on discharge instructions, follow up and referral plans. Demonstrated understanding of instructions, follow-up care. 11:47 Patient left the ED. em Signatures: Di Xie, GLADYS CONTRERASP-Luisa Card Edgar, KIM RN Sarah Bragg RN RN [place] [id number]
--- NOTE | 2019-11-26 11:31 | EDPHYS ---
Physician Documentation [facility] Name: George Trujillo Age: 69 yrs Sex: Male : 1950 Arrival Date: 11/26/2019 Time: 10:04 Bed 17 Private MD: Selina Baker C ED Physician Juanjo Downey HPI: 11/25 13:00 This 69 yrs old Male presents to ER via Ambulatory with complaints of Eye snw Problem. 13:00 The patient is experiencing foreign body sensation, pain, redness, tearing, The patient snw sustained None. to the right eye, caused by an unknown mechanism. Onset: The symptoms/episode began/occurred suddenly, yesterday. Duration: the symptoms are continuous. Aggravated by pressure, rubbing, Alleviated by nothing. Associated signs and symptoms: Pertinent positives: None. Patient wears glasses. Severity of symptoms: At their worst the symptoms were moderate in the emergency department the symptoms are unchanged. The patient has not experienced similar symptoms in the past. The patient has not recently seen a physician. working under the sink yesterday and felt maybe something fell into his eye. Attempts to remove with q-tip and paper towel were made. Historical: - Allergies: 10:19 No Known Allergies; hb - Home Meds: 10:19 amlodipine 5 mg tab 1 tab twice a day [Active]; amoxicillin 500 mg Oral cap 1 cap every hb 8 hours [Active]; atorvastatin 80 mg Oral tab 1 tab once daily [Active]; carvedilol 6.25 mg Oral tab 1 tab 2 times per day [Active]; Tylenol #3 Oral [Active]; - PMHx: 10:19 CAD; High Cholesterol; Hyperlipidemia; Hypertension; Prostate Cancer; hb - PSHx: 10:19 CABG; Knee surgery; shoulder; prostectomy; hb - Immunization history:: Adult Immunizations up to date. - Social history:: Smoking status: Patient denies any tobacco usage or history of. ROS: 12:59 Constitutional: Negative for fever, chills, and weight loss, ENT: Negative for injury, snw pain, and discharge, Neck: Negative for injury, pain, and swelling, Cardiovascular: Negative for chest pain, palpitations, and edema, Respiratory: Negative for shortness of breath, cough, wheezing, and pleuritic chest pain, Abdomen/GI: Negative for abdominal pain, nausea, vomiting, diarrhea, and constipation, Back: Negative for injury and pain, : Negative for injury, bleeding, discharge, and swelling, MS/Extremity: Negative for injury and deformity, Skin: Negative for injury, rash, and discoloration, Neuro: Negative for headache, weakness, numbness, tingling, and seizure, Psych: Negative for depression, anxiety, suicide ideation, homicidal ideation, and hallucinations. 12:59 Eyes: Positive for pain, redness, tearing, of the right eye. Exam: 12:58 Visual Acuity: I have reviewed the nursing documentation. snw 12:58 Constitutional: This is a well developed, well nourished patient who is awake, alert, and in no acute distress. Head/Face: Normocephalic, atraumatic. ENT: Nares patent. No nasal discharge, no septal abnormalities noted. Tympanic membranes are normal and external auditory canals are clear. Oropharynx with no redness, swelling, or masses, exudates, or evidence of obstruction, uvula midline. Mucous membranes moist. Neck: Trachea midline, no thyromegaly or masses palpated, and no cervical lymphadenopathy. Supple, full range of motion without nuchal rigidity, or vertebral point tenderness. No Meningismus. Chest/axilla: Normal chest wall appearance and motion. Nontender with no deformity. No lesions are appreciated. Cardiovascular: Regular rate and rhythm with a normal S1 and S2. No gallops, murmurs, or rubs. Normal PMI, no JVD. No pulse deficits. Respiratory: Lungs have equal breath sounds bilaterally, clear to auscultation and percussion. No rales, rhonchi or wheezes noted. No increased work of breathing, no retractions or nasal flaring. Abdomen/GI: Soft, non-tender, with normal bowel sounds. No distension or tympany. No guarding or rebound. No evidence of tenderness throughout. Back: No spinal tenderness. No costovertebral tenderness. Full range of motion. Skin: Warm, dry with normal turgor. Normal color with no rashes, no lesions, and no evidence of cellulitis. MS/ Extremity: Pulses equal, no cyanosis. Neurovascular intact. Full, normal range of motion. Neuro: Awake and alert, GCS 15, oriented to person, place, time, and situation. Cranial nerves II-XII grossly intact. Motor strength 5/5 in all extremities. Sensory grossly intact. Cerebellar exam normal. Normal gait. Psych: Awake, alert, with orientation to person, place and time. Behavior, mood, and affect are within normal limits. 12:58 Eyes: Periorbital structures: swelling, that is mild, on the right upper eyelid, Pupils: no acute changes, Extraocular movements: no acute changes, Conjunctiva: injected, in the right eye, tearing noted, in right eye, Corneas: abrasion, that is moderate sized, at 3 o'clock, foreign body, on the right, at 3 o'clock, a piece of metal, a fluorescein strip employed to appreciate the findings, Sclera: no appreciated abnormality, Anterior chamber: normal, no hyphema. Vital Signs: 10:16 BP 162 / 82; Pulse 61; Resp 16; Temp 97.5; Pulse Ox 100% on R/A; Weight 79.38 kg; hb Height 5 ft. 8 in. (172.72 cm); Pain 6/10; 10:16 Body Mass Index 26.61 (79.38 kg, 172.72 cm) hb Visual Acuity: 11:02 Left Eye Visual acuity 20/20, ; Right Eye Visual acuity 20/50, ; Both Eyes Visual mh5 acuity 20/15; With Lenses; MDM: 10:43 Patient medically screened. snw 11:31 Data reviewed: vital signs, nurses notes. Data interpreted: Pulse oximetry: on room air snw is 100 %. Counseling: I had a detailed discussion with the patient and/or guardian regarding: the historical points, exam findings, and any diagnostic results supporting the discharge/admit diagnosis, the presence of at least one elevated blood pressure reading (>120/80) during this emergency department visit, the need for outpatient follow up, an opthalmologist. Response to treatment: the patient's symptoms have mildly improved after treatment. Special discussion: I have referred the patient to see his PCP for further evaluation of high blood pressure. Based on the history and exam findings, there is no indication for further emergent testing or inpatient evaluation. I discussed with the patient/guardian the need to see the opthamologist for further evaluation of the symptoms. 11/25 10:35 Order name: Visual Acuity; Complete Time: 11:05 snw Administered Medications: 11:11 Drug: Tetracaine Drops 0.5 % 1 drops Route: Ophthalmic; Site: right eye; em 11:47 Follow up: Response: No adverse reaction; Pain is decreased em 11:11 Drug: Fluorescein Strip 1 strip Route: Ophthalmic; Site: right eye; em 11:47 Follow up: Response: No adverse reaction em Disposition: 14:25 Co-signature as Attending Physician, Juanjo Downey MD. rn Disposition: 11/26/19 11:29 Discharged to Home. Impression: Foreign body to right eye at 3 O'clock position, Corneal abrasion. - Condition is Stable. - Discharge Instructions: Corneal Abrasion, Eye Foreign Body. - Medication Reconciliation Form, Thank You Letter, Antibiotic Education, Prescription Opioid Use form. - Follow up: Wilbert Travis MD; When: Today; Reason: 4 O'clock. - Notes: Please see Dr. Travis at 4 O'clock. An appointment has been made for you. Signatures: Di Xie, NUTRITION THERAPIST-C NUTRITION THERAPIST-Csnw Bala Porter, RN KIM Juanjo Downey MD MD rn Baxter, Heather, RN RN Corrections: (The following items were deleted from the chart) 11:47 11:29 11/26/2019 11:29 Discharged to Home. Impression: Foreign body to right eye at 3 em O'clock position; Corneal abrasion. Condition is Stable. Forms are Medication Reconciliation Form, Thank You Letter, Antibiotic Education, Prescription Opioid Use. Follow up: Wilbert Travis; When: Today; Reason: 4 O'clock. snw
[2019-11-26 11:54] VITALS: BP 162/82; TEMP 97.5; O2SAT 100
== END 2019-11-26 11:47 | disposition home or self-care (01) ==
LOC: ER 10:00
DX: T15.91XA Foreign body on external eye, part unspecified, right eye, initial encounter (principal); S05.01XA Injury of conjunctiva and corneal abrasion without foreign body, right eye, initial encounter; Y93.E9 Activity, other interior property and clothing maintenance; Y93.89 Activity, other specified; Y92.9 Unspecified place or not applicable; I10 Essential (primary) hypertension; E78.00 Pure hypercholesterolemia, unspecified; Z95.1 Presence of aortocoronary bypass graft; Z85.46 Personal history of malignant neoplasm of prostate
CPT/HCPCS: 99284

== ENCOUNTER 2024-03-14 08:30 | Day surgery (SDC) | payer OTHER ==
[2024-03-12 11:47] LABS: Absolute Eosinophils 0.5 K/uL (0-0.5); Absolute Lymphocytes (CBC) 0.9 K/uL (0.7-4.9); Absolute Monocytes 0.5 K/uL (0.1-1.3); Absolute Neutrophil 3.2 K/uL (1.8-8.0); Basophils % 0.8 % (0-1.3); Eosinophils % 9.4 % (0-4.4); Hematocrit 45.9 % (39.6-49.0); Hemoglobin 15.5 g/dL (13.6-17.9); MCH 32.2 pg (27.0-35.0); MCHC 33.9 g/dL (32.0-36.0); MCV 95.1 fL (80-100); MPV 8.1 fL (7.6-11.3); Monocytes % 9.7 % (3.3-12.3); Neutrophils % 62.1 % (41.7-73.7); Platelets 193 thou/uL (152-406); RBC Red Blood Cell Count 4.82 M/uL (4.33-5.43); Red Cell Distribution Width 13.5 % (12.1-15.2)
--- NOTE | 2024-03-12 12:20 | RAD REPORT ---
EXAM DESCRIPTION: RAD - Chest Pa And Lat (2 Views) - 03/12/2024 11:50 am CLINICAL HISTORY: Pre op pending mass removal left upper arm. Hypertension COMPARISON: Chest Pa And Lat (2 Views) dated 07/17/2018; Chest Single View dated 03/19/2017; CHEST SI NGLE VIEW dated 04/08/2008; CHEST SINGLE VIEW dated 04/07/2008 TECHNIQUE: PA and lateral views of the chest were obtained. FINDINGS: The lungs are clear. Heart size is normal and central vasculature is within normal limits, with sequelae of CABG again seen. No pleural effusion or pneumothorax seen. No acute bony finding no adrián. IMPRESSION: No acute cardiopulmonary process.
[2024-03-12 12:50] LABS: Anion Gap 8.3 mEq/L (5.0-15.0); Potassium 4.3 mEq/L (3.5-5.1)
[2024-03-14] MEDS: Ringers Lactate 1,000 ML IV ONE (08:45)
[2024-03-14] MEDS ORDERED: LIDOCAINE 1% MPF 5 ML VIAL ONE (09:36)
[2024-03-14] MEDS ORDERED: MIDAZOLAM HCL 2 MG/2 ML INJ ONE (09:36)
[2024-03-14] MEDS ORDERED: propofoL 200 MG/20 ML VIAL IV ONE (09:36)
[2024-03-14] MEDS ORDERED: FENTANYL CITR 100 MCG/2 ML ONE (09:37)
[2024-03-14] MEDS: CEFAZOLIN SODIUM 1 GM/VIAL ONE (09:56)
[2024-03-14] MEDS ORDERED: ONDANSETRON 4 MG/2 ML VIAL ONE (10:07)
[2024-03-14] MEDS ORDERED: KETOROLAC 30 MG/ML INJ ONE (10:07)
[2024-03-14] MEDS ORDERED: dexAMETHasone 4 MG/ML VIAL ONE (10:07)
[2024-03-14] MEDS ORDERED: EPHEDRINE SULF 50 MG/ML VIAL ONE (10:16)
[2024-03-14] MEDS ORDERED: ALBUTEROL INHALER 200 PUFF/6.7 GM IH ONE (10:47)
[2024-03-14] MEDS: CODEINE 30MG/APAP 300MG TAB ONE (12:06)
[2024-03-14 12:33] VITALS: BP 137/63; TEMP 96.7; O2SAT 99
--- NOTE | 2024-03-16 08:47 | P.BOP ---
Preoperative diagnosis: Ulcerated left upper arm Basal cell carcinoma Postoperative diagnosis: same Primary procedure: Wide Excision Ulcerated left upper arm basal cell carcinoma 2x2cm Estimated blood loss: <10cc Specimen: mass Findings: basal cell carcinoma, margins free per Dr Leal Anesthesia: General Complications: None Transferred to: Recovery Room Condition: Good
--- NOTE | 2024-03-16 10:18 | DS ---
Date of Discharge: 03/14/2024 Disposition: Home. Activity: As tolerated. No heavy lifting. Plan: Follow up in my office in 1 week. Call for appointment [phone]. Condition: Stable. Diagnosis: Ulcerated left upper arm basal cell carcinoma. Procedure: Wide excision of ulcerated left upper arm basal cell carcinoma with frozen section. DERRICK/MATTHEW Voice ID: [id number] Report ID: [id number]
--- NOTE | 2024-03-16 10:18 | OP ---
Date of Procedure: 03/14/2024 Surgeon: Yrn Mayfield MD Preoperative Diagnosis: Ulcerated left upper arm basal cell carcinoma. Postoperative Diagnosis: Ulcerated left upper arm basal cell carcinoma. Procedure: Wide excision of ulcerated left upper arm basal cell carcinoma. The area is about 2 x 2 cm. The wide resection is larger. Estimated Blood Loss: Less than 10 cc. Specimen: Mass. Findings: Basal cell carcinoma, margins free of tumor per Dr. Leal. Anesthesia: General plus local. Indication: This is a case of a 73-year-old patient came with about 2 x 2 cm basal cell carcinoma on the left upper arm. The benefits, alternatives, and risks of wide resection with frozen section ful ly explained, which include, but not limited to, infection, bleeding, damage to adjacent structures, anesthesia complication, recurrence, LA, and even . He also understands this may not relieve an y symptoms. He might need more than one surgical intervention. He understood, signed a consent. Description Of Procedure: The area of concern was marked by me and the patient in the holding room. Patient was brought to the operating room, placed in supine position. Anesthesia was done without c omplication. Left arm was prepped and draped in a sterile fashion. Time-out was called. After that , a wide excision was made to at least leave about 2 cm negative margins. Once we have about wide ex cision in the skin, we proceeded to go all the way down to fatty tissue and subcutaneous tissue and r emove this lesion. Area was irrigated, marked for orientation, sent for frozen section, and came as basal cell carcinoma. Irrigation was done. Hemostasis was obtained. Local anesthesia was applied a nd then we proceeded to close this with a combination of chromic and nylon. Patient tolerated the pr ocedure well. Patient sent to recovery in stable condition. DERRICK/MATTHEW Voice ID: [id number] Report ID: [id number]
== END 2024-03-14 12:25 | disposition home or self-care (01) ==
LOC: OR 08:30
PROVIDERS: ATTEND Surgery
PROC: 0HBCXZZ Excision of Left Upper Arm Skin, External Approach (ICD-10-PCS; principal; 2024-03-14 10:15)
DX: C44.619 Basal cell carcinoma of skin of left upper limb, including shoulder (principal)
CPT/HCPCS: 11603; 85025; 80048; 36415; 88331; 88332; 88305; 71046; J2704; J1100; J2001; J2250; J3010; J2405; J7120; J0690

== ENCOUNTER 2024-06-20 08:13 | Day surgery (SDC) | payer OTHER ==
[2024-06-20 08:56] LABS: Absolute Basophils 0.1 K/uL (0-0.5); Absolute Eosinophils 0.6 K/uL (0-0.5); Absolute Lymphocytes (CBC) 0.9 K/uL (0.7-4.9); Absolute Monocytes 0.6 K/uL (0.1-1.3); Absolute Neutrophil 3.2 K/uL (1.8-8.0); Basophils % 1.2 % (0-1.3); Eosinophils % 11.4 % (0-4.4); Hematocrit 46.1 % (39.6-49.0); Hemoglobin 15.7 g/dL (13.6-17.9); Lymphocytes % 17.4 % (15.3-44.8); MCH 32.2 pg (27.0-35.0); MCHC 34.1 g/dL (32.0-36.0); MCV 94.4 fL (80-100); MPV 8.3 fL (7.6-11.3); Monocytes % 10.4 % (3.3-12.3); Neutrophils % 59.6 % (41.7-73.7); Nucleated Red Blood Cells % 0.2 % (0-0); Platelets 202 thou/uL (152-406); RBC Red Blood Cell Count 4.89 M/uL (4.33-5.43); Red Cell Distribution Width 13.2 % (12.1-15.2)
[2024-06-20 08:58] VITALS: BMI 28.5
[2024-06-20 09:05] LABS: Albumin 3.6 g/dL (3.4-5.0); Albumin/Globulin Ratio 0.9 (1.1-1.8); Anion Gap 9.3 mEq/L (5.0-15.0); Bilirubin Direct 0.2 mg/dL (0-0.2); Bilirubin Indirect, Calculated 0.5 mg/dL (0.2-0.8); Bilirubin Total 0.7 mg/dL (0.2-1.0); Globulin 3.8 g/dL (2.3-3.5); Potassium 4.3 mEq/L (3.5-5.1); Protein, Total 7.4 g/dL (6.4-8.2)
[2024-06-20 09:29] LABS: PT Prothrombin Time 11.5 SECONDS (9.4-12.5); PTT, Activated Partial Thromb 34.2 SECONDS (24.3-36.9); Protime INR 1.03
[2024-06-20 12:52] LABS: CSF Glucose 51 mg/dL (40-70)
[2024-06-20 12:58] LABS: Appearance CLEAR (CLEAR); Body Fluid Source CSF; Body Fluid WBC 1 /mm^3; Color of Supernate Not Xanthochromic (Not Xantho); Color of fluid Colorless (COLORLESS); Fluid Total Volume 11 ml; Tube # #2
[2024-06-20 13:54] VITALS: BP 143/72; TEMP 97.7; O2SAT 97
--- NOTE | 2024-06-20 18:00 | RAD REPORT ---
XR SPINE LUMBAR PUNCTURE CLINICAL INDICATION: R79.89, R41.89, I10, I51.9, E78.5, M19.90 TECHNIQUE: The risks (including the risks of bleeding, infection, headache, nerve injury), benefits, and alternatives of the procedure were carefully explained to the patient who wished to proceed. Informed written consent was obtained . The patient was placed prone into the fluoroscopy suite. Skin and subcutaneous tissues were anestheti zed with lidocaine Under fluoroscopic guidance a 22-gauge spinal needle was advanced into the thecal sac at the L2-3 lev el Approximately 11 cc CSF removed and sent to the lab. Complications: None Fluoroscopy time 1.3 minutes One fluoroscopic spot image obtained IMPRESSION: Lumbar puncture
== END 2024-06-20 13:37 | disposition home or self-care (01) ==
LOC: DS 08:13
PROVIDERS: ATTEND Psychiatry & Neurology Neurology with Special Qualifications in Child Neurology
PROC: 009U3ZX Drainage of Spinal Canal, Percutaneous Approach, Diagnostic (ICD-10-PCS; principal; 2024-06-20)
PROC: B01BZZZ Fluoroscopy of Spinal Cord (ICD-10-PCS; 2024-06-20)
DX: R41.3 Other amnesia (principal); R79.89 Other specified abnormal findings of blood chemistry; R41.89 Other symptoms and signs involving cognitive functions and awareness; I10 Essential (primary) hypertension; I51.9 Heart disease, unspecified; M19.90 Unspecified osteoarthritis, unspecified site; E78.5 Hyperlipidemia, unspecified
CPT/HCPCS: 36415; 77003; 80048; 80076; 82542; 82945; 84157; 85025; 85610; 85730; 89050

== ENCOUNTER 2024-09-23 11:29 | Emergency (ER) | payer OTHER ==
--- NOTE | 2024-09-23 13:09 | RAD REPORT ---
EXAM:Extremity Venous Uni Ltd HISTORY: Left leg pain TECHNIQUE: Sonographic evaluation left lower extremity performed.Grayscale, color and spectral analys is performed on all vessels COMPARISON: None. FINDINGS: Left common femoral, superficial femoral, greater saphenous, popliteal and posterior tibial veins are compressible and demonstrate augmentation. Doppler demonstrates good flow. IMPRESSION: No evidence of deep venous thrombosis involving the left lower extremity.
--- NOTE | 2024-09-23 13:38 | RAD REPORT ---
Exam:Ankle Left 3 View HISTORY: left ankle pain FINDINGS: No fracture or dislocation is seen. Soft tissue swelling is present
[2024-09-23] MEDS ORDERED: HYDROCODONE/APAP 7.5/325 MG TAB ONE (14:11)
[2024-09-23] MEDS ORDERED: KETOROLAC 30 MG/ML INJ ONE (14:11)
[2024-09-23] MEDS ORDERED: CEPHALEXIN 250 MG CAP ONE (14:20)
--- NOTE | 2024-09-23 14:23 | EDPHYS ---
Physician Documentation [facility] Name: George Trujillo Age: 73 yrs Sex: Male : 1950 Arrival Date: 09/23/2024 Time: 11:29 Bed DX3 Private MD: ED Physician Guy Shea HPI: 09/23 13:58 This 73 yrs old Male presents to ER via Wheelchair with complaints of Ankle Swelling. kb 13:58 Pt is a 73 year old male who presents for left ankle swelling and pain that he woke up kb with 2 days ago. Denies injury, trauma, fever. Historical: - Allergies: 13:06 No Known Allergies; hb - PMHx: 13:06 Myocardial infarction; prostate cancer; Hypertensive disorder; hyperlipidemia; skin hb cancer nose; - PSHx: 13:06 Coronary artery bypass graft; Operative procedure on knee; hb - Immunization history:: Adult Immunizations up to date. - Infectious Disease History:: Denies. - Social history:: Smoking status: Patient denies any tobacco usage or history of. ROS: 14:00 Constitutional: As per HPI kb Exam: 14:22 Constitutional: This is a well developed, well nourished patient who is awake, alert, kb and in no acute distress. Head/Face: Normocephalic, atraumatic. ENT: Moist Mucous membranes Cardiovascular: Regular rate Respiratory: Respirations even and unlabored. No increased work of breathing. Talking in full sentences MS/ Extremity: Pulses equal, no cyanosis. Neurovascular intact. Full, normal range of motion. Neuro: Awake and alert, GCS 15, oriented to person, place, time, and situation. 14:22 Skin: cellulitis, that is mild, on the left lateral ankle, Vital Signs: 13:04 BP 166 / 83; Pulse 64; Resp 17; Temp 98.5; Pulse Ox 100% ; Weight 83.01 kg; Height 5 hb ft. 8 in. ; Pain 7/10; 13:04 Body Mass Index 27.82 (83.01 kg, 172.72 cm) hb 13:04 Pain Scale: Adult hb MDM: 11:34 Medical Screening Exam initiated kb 14:21 Data reviewed: vital signs, nurses notes. kb 14:22 Differential diagnosis: sprain, arthritis, gout, cellulitis, dvt. Test considered but kb Not performed: Labs: cbc, cmp considered but pt is nontoxic in appearance, afebrile. Historians other than the Patient: Spouse/Significant Other: . Counseling: I had a detailed discussion with the patient and/or guardian regarding the historical points, exam findings, and any diagnostic results supporting the discharge/admit diagnosis, radiology results, the need for outpatient follow up, a family practitioner, to return to the emergency department if symptoms worsen or persist or if there are any questions or concerns that arise at home. 09/23 12:32 Order name: US Extremity Venous Unilateral Ltd; Complete Time: 13:17 kb 09/23 12:32 Order name: Ankle Left 3 View XRAY; Complete Time: 13:39 kb Administered Medications: 14:24 Drug: Hydrocodone-Acetaminophen PO (7.5 mg-325 mg) 1 tabs PO once Route: PO; hb 14:40 Follow up: Response: Medication administered at discharge. hb 14:24 Drug: Ketorolac IM 30 mg IM once Route: IM; Site: right deltoid; hb 14:40 Follow up: Response: No adverse reaction hb 14:37 Drug: Cephalexin PO 500 mg PO once Route: PO; hb 14:40 Follow up: Response: Medication administered at discharge. hb Disposition Summary: 09/23/24 14:23 Discharge Ordered Notes: Location: Home kb Condition: Stable kb Diagnosis - Cellulitis of left lower limb kb Followup: kb - With: Emergency Department - When: As needed - Reason: Worsening of condition Followup: kb - With: Private Physician - When: 2 - 3 days - Reason: Recheck today's complaints, Continuance of care, Re-evaluation by your physician Discharge Instructions: - Discharge Summary Sheet kb - Cellulitis, Adult, [id number] kb - Gout, [id number] kb Forms: - Medication Reconciliation Form kb - Antibiotic Education kb - Prescription Opioid Use kb - Patient Portal Instructions kb - Leadership Thank You Letter kb Prescriptions: - Cephalexin 500 mg Oral Capsule - take 1 capsule ORAL route every 8 hours for 10 days; 30 capsule; Refills: 0, kb Product Selection Permitted - Diclofenac Sodium 75 mg Oral tablet, delayed release (enteric coated) - take 1 tablet ORAL route 2 times per day As needed; 30 tablet; Refills: 0, kb Product Selection Permitted Signatures: Dispatcher [employer] Qiana Barkley FNP-C FNP-Sarah Redd, RN RN hb Corrections: (The following items were deleted from the chart) 12:33 12:33 Ankle Left 3 View+[id number] ordered. EDMS EDMS 12:45 12:43 PMHx: Prostate Cancer; hb hb 13:03 12:43 PMHx: CAD; hb hb 13:03 12:43 PMHx: High Cholesterol; hb hb 13:03 12:43 PMHx: Hyperlipidemia; hb hb 13:03 12:43 PMHx: Hypertension; hb hb 13:03 12:43 PSHx: TURP (Prostate Cancer); hb hb 13:03 12:43 PSHx: Repair of inguinal hernia; hb hb 13:03 12:43 PSHx: finger surgery; hb hb 13:03 12:43 PSHx: Tonsillectomy; hb hb 13:03 12:43 Immunization history: Adult Immunizations up to date, hb hb 13:03 12:43 Infectious Disease History: Denies. hb hb 13:03 12:43 Social history: Smoking status: hb hb 13:03 12:45 PSHx: cardioversion; hb hb 13:03 12:45 Social history: Smoking status: Patient denies any tobacco usage or history of. hbhb
--- NOTE | 2024-09-23 14:23 | ER ---
Nurse's Notes [facility] Name: George Trujillo Age: 73 yrs Sex: Male : 1950 Arrival Date: 09/23/2024 Time: 11:29 Bed DX3 Private MD: Diagnosis: Cellulitis of left lower limb Presentation: 09/23 13:04 Chief complaint: Patient states: reports left ankle pain and swelling that started hb Wiliam night. Denies fever. Pain 7/10, sharp. Coronavirus screen: Vaccine status: Patient reports receiving the 1st dose of the Covid vaccine. Ebola Screen: No symptoms or risks identified at this time. Initial Sepsis Screen: Does the patient meet any 2 criteria? No. Patient's initial sepsis screen is negative. Onset of symptoms was September 21, 2024. 13:04 Method Of Arrival: Wheelchair hb 13:04 Acuity: LORI 3 hb Triage Assessment: 13:06 General: Appears uncomfortable, well groomed, well developed, well nourished, Behavior hb is calm, cooperative, appropriate for age. Pain: Complains of pain in left carpenter, anterior aspect of left ankle and dorsum of left foot Pain does not radiate. Pain currently is 7 out of 10 on a pain scale. Quality of pain is described as sharp, Pain began 2-3 days ago. Is continuous. Neuro: Level of Consciousness is awake, alert, obeys commands, Oriented to person, place, time, situation, Appropriate for age. Cardiovascular: Patient's skin is warm and dry. Respiratory: Airway is patent Trachea midline Respiratory effort is even, unlabored, Respiratory pattern is regular, symmetrical. GI: No signs and/or symptoms were reported involving the gastrointestinal system. : No signs and/or symptoms were reported regarding the genitourinary system. Derm: No signs and/or symptoms reported regarding the dermatologic system. Musculoskeletal: Reports pain in anterior aspect of left ankle and dorsum of left foot. Historical: - Allergies: 13:06 No Known Allergies; hb - PMHx: 13:06 Myocardial infarction; prostate cancer; Hypertensive disorder; hyperlipidemia; skin hb cancer nose; - PSHx: 13:06 Coronary artery bypass graft; Operative procedure on knee; hb - Immunization history:: Adult Immunizations up to date. - Infectious Disease History:: Denies. - Social history:: Smoking status: Patient denies any tobacco usage or history of. Screenin:00 [facility] ED Fall Risk Assessment (Adult) History of falling in the last 3 months, hb including since admission No falls in past 3 months (0 pts) Confusion or Disorientation No (0 pts) Intoxicated or Sedated No (0 pts) Impaired Gait No (0 pts) Mobility Assist Device Used No (0 pt) Altered Elimination No (0 pt) Score/Fall Risk Level 0 - 2 = Low Risk Oriented to surroundings, Maintained a safe environment, Educated pt \T\ family on fall prevention, incl call for assistance when getting out of bed. Abuse screen: Denies threats or abuse. Denies injuries from another. Nutritional screening: No deficits noted. Tuberculosis screening: No symptoms or risk factors identified. Assessment: 14:00 General: Appears in no apparent distress. uncomfortable, Behavior is calm, cooperative. hb Neuro: Level of Consciousness is awake, alert, obeys commands, Oriented to person, place, time, situation. Cardiovascular: Patient's skin is warm and dry. Respiratory: Respiratory effort is even, unlabored, Respiratory pattern is regular, symmetrical. Musculoskeletal: right foot and ankle swelling. Vital Signs: 13:04 BP 166 / 83; Pulse 64; Resp 17; Temp 98.5; Pulse Ox 100% ; Weight 83.01 kg; Height 5 hb ft. 8 in. ; Pain 7/10; 13:04 Body Mass Index 27.82 (83.01 kg, 172.72 cm) hb 13:04 Pain Scale: Adult hb ED Course: 11:32 Patient arrived in ED. al6 11:34 Qiana Moran [facility]C [facility] kb 11:34 Guy Shea MD is Attending Physician. kb 12:43 Triage completed. hb 13:05 US Extremity Venous Unilateral Ltd In Process Unspecified. EDMS 13:06 Arm band placed on Patient placed in waiting room. hb 13:27 Ankle Left 3 View XRAY In Process Unspecified. EDMS 14:00 Patient has correct armband on for positive identification. Provided Education on: hb medications . 14:00 No provider procedures requiring assistance completed. Patient did not have IV access hb during this emergency room visit. 14:12 Sarah Rudolph, RN is Primary Nurse. hb Administered Medications: 14:24 Drug: Hydrocodone-Acetaminophen PO (7.5 mg-325 mg) 1 tabs PO once Route: PO; hb 14:40 Follow up: Response: Medication administered at discharge. hb 14:24 Drug: Ketorolac IM 30 mg IM once Route: IM; Site: right deltoid; hb 14:40 Follow up: Response: No adverse reaction hb 14:37 Drug: Cephalexin PO 500 mg PO once Route: PO; hb 14:40 Follow up: Response: Medication administered at discharge. hb Medication: 14:00 VIS not applicable for this client. hb Outcome: 14:23 Discharge ordered by . julio 14:39 Discharged to home via wheelchair, with significant other, hb 14:39 Condition: stable 14:39 Discharge instructions given to patient, significant other, Instructed on discharge instructions, follow up and referral plans. medication usage, Demonstrated understanding of instructions, follow-up care, medications, Prescriptions given X 2, 14:40 Patient left the ED. hb Signatures: Dispatcher [employer] EDMS Qiana Moran, Sarah Gamez RN RN Smita Kelly Corrections: (The following items were deleted from the chart) 12:45 12:43 PMHx: Prostate Cancer; hb hb 13:03 12:41 Chief complaint: Patient states: urinating very little each time since Tuesday. hb Had an abdominal US that showed he wasn't emptying his bladder. HX of TURP >10 years. Pain level to suprapubic abdomen 4/10, pressure hb 13:03 12:41 Coronavirus screen: Vaccine status: Patient reports receiving the 2nd dose of the hb covid vaccine. 13:03 12:41 Ebola Screen: No symptoms or risks identified at this time. [facility] 13:03 12:41 Initial Sepsis Screen: Does the patient meet any 2 criteria? No. Patient's hb initial sepsis screen is negative. Does the patient have a suspected source of infection? No. Patient's initial sepsis screen is negative. 13:03 12:41 Risk Assessment: Do you want to hurt yourself or someone else? Patient reports no hb desire to harm self or others. 13:03 12:41 Onset of symptoms was September 21, 2024 [facility] 13:03 12:41 Method Of Arrival: Ambulatory [facility] 13:03 12:41 BP 135 / 85; Pulse 66bpm; Resp 16bpm; Pulse Ox 99%; Temp 98F; 97.52 kg; Height 6 hb ft. 4 in.; BMI: 26.1; Pain 4/10, Adult; hb 13:03 12:41 Acuity: LORI 3 hb hb 13:03 12:43 PMHx: CAD; hb hb 13:03 12:43 PMHx: High Cholesterol; hb hb 13:03 12:43 PMHx: Hyperlipidemia; hb hb 13:03 12:43 PMHx: Hypertension; hb hb 13:03 12:43 PSHx: TURP (Prostate Cancer); hb hb 13:03 12:43 PSHx: Repair of inguinal hernia; hb hb 13:03 12:43 PSHx: finger surgery; hb hb 13:03 12:43 PSHx: Tonsillectomy; hb hb 13:03 12:43 Immunization history: Adult Immunizations up to date, hb hb 13:03 12:43 Infectious Disease History: Denies. hb hb 13:03 12:43 Social history: Smoking status: hb hb 13:03 12:45 PSHx: cardioversion; hb hb 13:03 12:45 Social history: Smoking status: Patient denies any tobacco usage or history of. hbhb 13:04 12:45 General: Appears uncomfortable, Behavior is calm, cooperative, appropriate for hb age, Smells of hb 13:04 12:45 Pain: Complains of pain in suprapubic area Pain does not radiate. Pain currently hb is 4 out of 10 on a pain scale. Quality of pain is described as pressure, Pain began gradually, 2-3 days ago. Is continuous, hb 13:04 12:45 EENT: No signs and/or symptoms were reported regarding the EENT system. hb hb 13:04 12:45 Neuro: Level of Consciousness is awake, alert, obeys commands, Oriented to hb person, place, time, situation, Appropriate for age hb 13:04 12:45 Cardiovascular: Patient's skin is warm and dry. hb hb 13:04 12:45 Respiratory: Airway is patent Respiratory effort is even, unlabored, Respiratory hb pattern is regular, symmetrical, hb 13:04 12:45 GI: No signs and/or symptoms were reported involving the gastrointestinal system. hb hb 13:04 12:45 : Reports inability to void, since Tuesday hb hb 13:04 12:45 Derm: Skin is intact, is healthy with good turgor, Skin is pink, warm \T\ dry. hb hb : 12:45 Musculoskeletal: No signs and/or symptoms reported regarding the musculoskeletal hb system. hb 12:45 Arm band placed on Patient placed in waiting room, hb hb
[2024-09-23 14:45] VITALS: BP 166/83; TEMP 98.5; O2SAT 100
== END 2024-09-23 14:40 | disposition home or self-care (01) ==
LOC: ER 11:29
DX: L03.116 Cellulitis of left lower limb (principal); Z95.1 Presence of aortocoronary bypass graft
CPT/HCPCS: 93971; 96372; 99284